=== PATIENT | female | born 1990 | race Caucasian/White ===

== ENCOUNTER 2023-11-14 15:30 | Outpatient (CLI) | payer MEDICAID, SELFPAY ==
[2023-11-14 21:02] LABS: Chlamydia DNA Amplified* NOT DETECTED (No Detected); GC DNA Amplified* NOT DETECTED (No Detected)
== END 2023-11-14 15:31 | disposition home or self-care (01) ==
PROVIDERS: Visit Provider Physician Assistant
DX: Z34.92 Encounter for supervision of normal pregnancy, unspecified, second trimester (principal); Z3A.20 20 weeks gestation of pregnancy
CPT/HCPCS: 86592; 86703; 86704; 86706; 86762; 86787; 86803; 86850; 86900; 86901; 87086; 87340; 87491; 87591

== ENCOUNTER 2023-11-20 11:58 | Outpatient (CLI) | payer MEDICAID, SELFPAY ==
--- NOTE | 2023-11-20 12:15 | CRLHL7_ITS ---
For Patients: As a result of the Century Cures Act, medical imaging exams and procedure reports are released immediately into your electronic medical record. You may view this report before your referring provider. If you have questions, please contact your health care provider. INDICATION: Evaluate anatomy. COMPARISON: none TECHNIQUE: Real time bishop scale imaging of the fetus was performed as well as color Doppler analysis of the umbilical vessels. FINDINGS: Sonographic imaging demonstrates a single living intrauterine gestation. Fetus demonstrates a regular cardiac rate of 155 beats per minute. Fetus has a vertex position. The placenta lies posteriorly without evidence of placenta previa. Edge of the placenta located 4.9 cm from the internal cervical os. Amniotic fluid volume appears normal. Single deepest vertical pocket: 3.4 cm. With transvaginal measurement, the cervix measures 2.6 cm with fundal pressure. A small amount of fluid is present within the endocervical canal. The composite ultrasound gestational age is calculated at 21 weeks 2 days with an estimated sonographic due date of 03/30/2024. The estimated weight is 418 grams which lies at the 72nd %. The following biometric measurements were obtained: Biparietal diameter: 5.0 cm/21 weeks 0 days 57th% Head circumference: 18.7 cm/21 weeks 0 days 47th% Abdominal circumference: 16.9 cm/21 weeks 6 days 76th% Femur length: 3.5 cm/20 weeks 6 days 41st% The HC/AC ratio measures: 1.11 range (1.06-1.24) On anatomic survey, there is a normal appearance of the cerebral ventricles, cavum septi pellucidi, cisterna magna and cerebellum. The nose, lips, and facial profile appear normal. The cervical, thoracic and lumbar spine are well visualized and appear normal. There is a normal four-chamber heart view and the left and right ventricular outflow tracts appear normal. The diaphragm and stomach appear normal. The kidneys and bladder also appear normal. There is a normal three-vessel cord and cord insertion site. The four extremities appear normal. IMPRESSION: Concordance of clinical and sonographic dating. No intrinsic abnormalities noted on anatomic survey. Transvaginal measurement of the cervix performed. With fundal pressure the cervix measures 2.6 cm. A small amount of fluid is present within the endocervical canal. Dictated by García Echols MD @ 11/20/2023 4:10:37 PM (Electronically Signed)
== END 2023-11-20 11:59 | disposition home or self-care (01) ==
PROVIDERS: Visit Provider Physician Assistant
DX: Z34.92 Encounter for supervision of normal pregnancy, unspecified, second trimester (principal); Z3A.21 21 weeks gestation of pregnancy
CPT/HCPCS: 76805; 76817

== ENCOUNTER 2023-12-06 07:29 | Outpatient (CLI) | payer MEDICAID, SELFPAY ==
--- OUTSIDE RECORDS SUMMARY | 2023-12-06 15:05 | XMS_ITS | Encounter Summary ---
Author Organization [facility] Address [address] [place] [address] Care Team Providers Care Ice Sculptor Name Role Phone Jennifer Dubose P.A.-C., P.A. Primary Care Provid er Reason for Visit * Reason Comments Pre-placement [facility] * Appointment Request (Routine) - Closed Specialty Diagnoses / Procedures Referred By Richard damon Referred To Contact Occupational Medicine Referral ID Status Reason Start Date Expiration Date Visits Re quested Visits Authorized [id number] Closed 10/17/2023 10/16/2024 1 1 Encounter Details Date Type Department Care Team (Latest Contact Info) Description 10/18/2023 9:00 AM CDT Comprehensive Visit Department of Occupational Medicine in [place], [place] [address] [phone] Cheryl Mclean P.A.-C., P.A. [address] [phone] Preplacement Exam (Primary Dx) Social History Tobacco Use Types Packs/Day Years Used Date Smoking Tobacco: Former Cigarettes 0.5 10 1 04/17/2010 - 02/15/2021 Smokeless Tobacco: Never Tobacco Cessation:Counseling Given: Not Answered Alcohol Use Standard Drinks/Week Comments Yes 1 (1 standard drink = 0.6 oz pur e alcohol) Humiliation, Afraid, Rape, and Kick questionnair e Answer Date Recorded Within the last year, have y ou been afraid of your partner or ex-partner? No 08/25/2021 Within the last year, have y ou been humiliated or emotionally abused in other ways by your partner or ex-partner? No Within the last year, have y ou been kicked, hit, slapped, or otherwise physically hurt by your partner or ex-partner? No 08/25/2021 Within the last year, have y ou been raped or forced to have any kind of sexual activity by your partner or ex-partner? No 08/25/2021 Social Connection and Isolat ion Panel [NHANES] Answer Date Recorded In a typical week, how many times do you talk on the phone with family, friends, or neighbors? More than three times a week 08/25/2021 How often do you get togethe r with friends or relatives? Twice a week 08/25/2021 How often do you attend chur or mormon services? Never 08/25/2021 Do you belong to any clubs o r organizations such as adventist groups, unions, fraternal or athletic groups, or school groups? No 08/25/2021 How often do you attend meet ings of the clubs or organizations you belong to? Patient declined 08/25/2021 Are you , , di vorced, , never , or living with a partner? 08/25/2021 AUDIT-C Answer Date Recorded Q1: How often do you have a drink containing alc ohol? Monthly or less 08/25/2021 Q2: How many drinks containi ng alcohol do you have on a typical day when you are drinking? 3 or 4 08/25/2021 Q3: How often do you have si x or more drinks on one occasion? Less than monthly 08/25/2021 Overall Financial Resource Strain (CARDIA) Answe r Date Recorded How hard is it for you to pa y for the very basics like food, housing, medical care, and heating? Somewhat hard 08/25/2021 PHQ-2 Answer Date Recorded PHQ-2 Score 0 08/25/2021 [facility] - Occupational Stress Questionnaire Answer Date Recorded Do you feel stress - tense, restless, nervous, or anxious, or unable to sleep at night because your mind is troubled all the time - these days? Not at all 08/25/2021 Exercise Vital Sign Answer Date Recorde d On average, how many days pe r week do you engage in moderate to strenuous exercise (like a brisk walk)? 3 days 08/25/2021 On average, how many minutes do you engage in exercise at this level? 30 min 08/25/2021 Hunger Vital Sign Answer Date Recorded Within the past 12 months, y ou worried that your food would run out before you got the money to buy more. Never true 08/26/19 Within the past 12 months, t he food you bought just didn't last and you didn't have money to get more. Never true 08/25/2021 PRAPARE - Transportation Answer Date Re corded In the past 12 months, has l ack of transportation kept you from medical appointments or from getting medications? No 08/15 In the past 12 months, has l ack of transportation kept you from meetings, work, or from getting things needed for daily living? No 08/25/2021 Housing Stability Vital Sign Answer Kofi e Recorded In the last 12 months, was t here a time when you were not able to pay the mortgage or rent on time? No 08/25/2021 In the last 12 months, how many places have you lived? 2 08/25/2021 In the last 12 months, was t here a time when you did not have a steady place to sleep or slept in a fpc (including now)? No 08/25/2021 Nutrition Answer Date Recorded On average, how many serving s of fruits and vegetables do you eat per day (serving size is equal to 1 cup or approximately the size of a tennis ball)? 2-3 08/25/2021 Dental Answer Date Recorded Dental: Regular Dentist No 08/26/19 Employment Answer Date Recorded Employment status Employed and actively working without restrictions 08/25/2021 Education Answer Date Recorded What is the highest level of school you have completed or the highest degree you have received? 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 Sexual Orientation Straight 05/26/2019 10 :17 PM BRAKE DRUM LATHE OPERATOR documented as of this encounter Last Filed Vital Signs Vital Sign Reading Time Taken Comments Blood Pressure 108/74 10/18/2023 9:14 AM CDT Pulse 81 10/18/2023 9:14 AM CDT Temperature 36.2 ??C (97.2 ??F) 10/18/2023 9:14 AM CD T Respiratory Rate 16 10/18/2023 9:14 AM CDT Oxygen Saturation - - Inhaled Oxygen Concentration - - Weight 99.2 kg (218 lb 11.1 oz) 10/18/2023 9:14 AM CDT Height 173.3 cm (5' 8.23) 10/18/2023 9:14 AM CD T Body Mass Index 33.03 10/18/2023 9:14 AM CDT documented in this encounter Progress Notes * Cheryl Mclean P.A.-C., P.A. 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 female presenting today for a pre-placement physical. She has established with a local primary care provider, Jennifer Dubose PA-C. The patient does not have any current complaints or concerns. She is currently about 17 weeks . She has not yet established with OB but intends to soon. Patient completed Pre-Employment History Evaluation Questionnaire, this is reviewed in detail. The following portions of the patient's medical history were reviewed and updated as appropriate: allergies, current medications, medical history, social history, surgical history, and problem list Review of Systems ROS negative, as documented on the Pre-Employment History Evaluation Questionnaire completed on 10/18/23 Vitals: 10/18/23 0914 BP: 108/74 Pulse: 81 Resp: 16 Temp: 36.2 ??C GENERAL: Alert, relaxed female, under no acute distress. NEUROLOGICAL: Thought processes coherent, oriented to person, place and time. SKIN: Warm, moist, no lesions or ecchymosis. HEENT: Normocephalic, atraumatic. PERRLA. EOMs intact. HEART: S1, S2. Regular rate and rhythm. No murmurs, gallops or rubs. LUNGS: Clear to auscultation bilaterally. ABDOMEN: Soft, non tender to palpation. No hepatosplenomegaly. EXTREMITIES: Warm and well perfused, no joint pain or deformities. ASSESSMENT / PLAN Encounter Diagnosis Name Primary? Preplacement Exam Yes The job description, Pre-Employment Questionnaire, and diagnostic testing have been reviewed. May proceed with employment without restrictions. Appropriate forms filled out for the employer, see scanned documents for details. Tobacco cessation counseling: Not applicable, patient is not currently using tobacco. Thank you for letting me be involved in your care. documented in this encounter Plan of Treatment Not on file documented as of this encounter Visit Diagnoses Diagnosis Preplacement Exam- Primary documented in this encounter Care Teams Ice Sculptor Relationship Specialty Start Date End Date Jennifer Dubose P.A.-C., P.A. [address] [phone] PCP - General 02/15/21 documented as of this encounter
--- OUTSIDE RECORDS SUMMARY | 2023-12-06 15:05 | XMS_ITS | Clinical Summary ---
Author Organization [facility] Address [address] [place] [address] Care Team Providers Care Overnight Babysitter Name Role Phone Jennifer Dubose P.A.-C., P.A. Primary Care Provid er Source Comments Patient records contain information from all sites at [facility]. For routine questions regarding patient records, call [phone] during business hours, M-F 8:00 AM - 5:00 PM Central Time. Record requests for emergency care only can be directed to [phone] at any time.[facility] Allergies No known active allergies Medications No known medications Active Problems Problem Noted Date Diagnosed Date Hidradenitis Suppurativa 12/05/2012 Dependence Nicotine 12/06/2010 Polycystic Ovary Syndrome 11/04/2005 Hirsutism 10/21/2005 Encounters Date Type Department Care Team Description 10/18/2023 9:00 AM CDT Comprehensive Visit Department of Occupational Medicine in [place], [place] [address] [place] [phone] Cheryl Mclean P.A.-C., P.A. Preplacement Exam (Primary Dx) from Last 3 Months Immunizations Name Administration Dates Next Due 4vHPV (discontinued) 01/29/2009,11/06/2008,09/05 DTP 12/05/1995 DTaP (Infanrix, Tripedia) 08/27/1992,1991, 1991,1991 DTaP, Unspecified 12/05/1995, 3,1991,1991, HepB Adult 04/12/2004,11/11/2003,10/09/2003 HepB, Unspecified 04/12/2004,11/11/2003,10/09/19 04 Hib (PRP-T) (ACTHIB, HIBERIX) 05/26/1992, 992,1991,1991 IPV 08/27/1992,1991,1991 ,1991 MMR 11/06/2003,05/26/1992 OPV 12/05/1995 PPSV23 05/23/2016 Td (Adult), adsorbed 11/11/2003 Td, (Adult) Unspecified 11/11/2003 Tdap 05/23/2016 Family History Medical History Relation Name Comments ADD / ADHD Brother No Known Problems Father Diabetes Maternal Grandfather Heart attack Maternal Grandfather cause o f Alzheimers disease Maternal Grandmother Diabetes Maternal Grandmother Clotting disorder Mother Ila Coronary artery disease Mother Ila Sten ts Depression Mother Ila Diabetes Mother Ila Hyperlipidemia Mother Ila Hypertension Mother Ila Kidney disease Mother Ila Sleep apnea Mother Ila Stroke Mother Ila Thyroid disease Mother Ila Diabetes Paternal Grandfather Relation Name Status Comments Brother Father Maternal Grandfather Maternal Grandmother Mother Ila Alive Paternal Grandfather Social History Tobacco Use Types Packs/Day Years [...] How often do you attend chur or latter-day services? Never 08/25/2021 Do you belong to any clubs o r organizations such as taoism groups, unions, fraternal or athletic groups, or [...] Answer Date Recorded PHQ-2 Score 0 08/25/2021 [facility] - Occupational Stress [...] place to sleep or slept in a snf (including now)? 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 PROTECTION TECHNICIAN Sexual Orientation Straight 05/26/2019 10 :17 PM SENIOR RADIATION PROTECTION TECHNICIAN Last Filed Vital Signs Vital Sign Reading [...] Mass Index 33.03 10/18/2023 9:14 AM CDT Plan of Treatment Health Maintenance Due Date Last Done Comments HIV Screening 1991 Hepatitis C Screening 1991 Cervical Cancer Screening 05/28/20222019, 05/23/2016, 12/19/2012 COVID-19 Vaccine (2022-24 season) 2022 Depression Screening (Annual PHQ-2) 04/17/2023 Influenza Vaccine (#1) 2024 DTaP,Tdap,and Td Vaccines (7 - Td or Tdap) 05/23/2026 05/23/2016, 11/11/2003, 11/11/2003, Additional history exists Hepatitis B Vaccines Completed 04/12/2004, 04/12/2004, 11/11/2003, Additional history exists HPV Vaccines Completed 01/29/2009, 10/16, 09/05/2008 Pneumococcal vaccine (0-64 years) Aged Out 05/23/2016 No longer eligible based on patient's age to complete this topic Procedures Procedure Name Priority Date/Time Associated Diagnosis Comments THINPREP SCREEN HPV REFLEX Routine 05/28/2019 9:52 AM SENIOR RADIATION PROTECTION TECHNICIAN General Medical Examination Adult from Last 3 Months or Most Recently Relevant to Health Maintenance Results * ThinPrep Screen HPV Reflex (05/28/2019 9:52 AM SENIOR RADIATION PROTECTION TECHNICIAN) 06/03/2019 12:08 PM SENIOR RADIATION PROTECTION TECHNICIAN [facility] Report electronically signed by JOEL Live(ASCP) I verify that I have examined all relevant slides/materials for the specimen(s) and rendered or confirmed the diagnosis. 06/03/2019 12:08 PM SENIOR RADIATION PROTECTION TECHNICIAN [facility] Gross Description Received specimen in a ThinPrep vial. 06/03/2019 12:08 PM SENIOR RADIATION PROTECTION TECHNICIAN [facility] Pap Test Source Cervical/Endocervi kate 06/03/2019 12:08 PM SENIOR RADIATION PROTECTION TECHNICIAN [facility] Clinical History na 06/03/19 20 12:08 PM SENIOR RADIATION PROTECTION TECHNICIAN [facility] Menstrual Status(LMP, PM, ) na 06/03/2019 12:08 PM SENIOR RADIATION PROTECTION TECHNICIAN [facility] Hormone Therapy/Contracep tives na 06/03/2019 12:08 PM SENIOR RADIATION PROTECTION TECHNICIAN [facility] Interpretation Cervical/Endocervi kate ??(ThinPrep): Satisfactory for Evaluation Negative for Intraepithelial Lesion or Malignancy 06/03/2019 12:08 PM SENIOR RADIATION PROTECTION TECHNICIAN [facility] Varies (Cervix/Endocerv ix) 05/28/2019 9:52 AM SENIOR RADIATION PROTECTION TECHNICIAN 05/28/2019 2:13 PM SENIOR RADIATION PROTECTION TECHNICIAN Pham Alvarez APRN, C.N.P., M.S.N. LAB PAP PATHDX ORDERABLES [facility] [address] [place] [address], [facility] [address] [place] [address] from Last 3 Months or Most Recently Relevant to Health Maintenance Care Teams Overnight Babysitter Relationship Specialty Start Date End Date Jennifer Dubose P.A.-C., P.A. [address], [place] [phone] PCP - General 02/15/21
--- OUTSIDE RECORDS SUMMARY | 2023-12-06 15:05 | XMS_ITS | Referral Summary ---
Author Organization [facility] Address [address] [place] [address] Care Team Providers Care Automobile Mechanic Name Role Phone Jennifer Dubose P.A.-C., P.A. Primary Care Provid er Source Comments Patient records contain information from all sites at [facility]. For routine questions regarding patient records, call [phone] during business hours, M-F 8:00 AM - 5:00 PM Central Time. Record requests for emergency care only can be directed to [phone] at any time.[facility] Encounters Date Type Department Care Team Description 10/18/2023 9:00 AM CDT Comprehensive Visit Department of Occupational Medicine in [place], [place] [address] [place] [phone] Cheryl Mclean P.A.-C., P.A. Preplacement Exam (Primary Dx) from Last 3 Months Allergies No known active allergies Medications No known medications Active Problems Problem Noted Date Diagnosed Date Hidradenitis Suppurativa 12/05/2012 Dependence Nicotine 12/06/2010 Polycystic Ovary Syndrome 11/04/2005 Hirsutism 10/21/2005 Immunizations Name Administration Dates Next Due 4vHPV (discontinued) 01/29/2009,11/06/2008,09/05 DTP 12/05/1995 DTaP (Infanrix, Tripedia) 08/27/1992,1991, 1991,1991 DTaP, Unspecified 12/05/1995, 3,1991,1991, HepB Adult 04/12/2004,11/11/2003,10/09/2003 HepB, Unspecified 04/12/2004,11/11/2003,10/09/19 04 Hib (PRP-T) (ACTHIB, HIBERIX) 05/26/1992, 992,1991,1991 IPV 08/27/1992,1991,1991 ,1991 MMR 11/06/2003,05/26/1992 OPV 12/05/1995 PPSV23 05/23/2016 Td (Adult), adsorbed 11/11/2003 Td, (Adult) Unspecified 11/11/2003 Tdap 05/23/2016 Social History Tobacco Use Types Packs/Day Years [...] week 08/25/2021 How often do you attend [facility] or scientology services? Never 08/25/2021 Do you belong to any clubs o r organizations such as jehovah's witness groups, unions, fraternal or athletic groups, or [...] Answer Date Recorded PHQ-2 Score 0 08/25/2021 [facility] - Occupational Stress Questionnaire Answer Date Recorded [...] money to buy more. Never true 08/26/19 22 Within the past 12 months, t he [...] place to sleep or slept in a jail (including now)? No 08/25/2021 Nutrition Answer Date [...] file Gender Identity Female 05/26/2019 10:17 PM INSTITUTIONAL CUSTODIAN Sexual Orientation Straight 05/26/2019 10 :17 PM INSTITUTIONAL CUSTODIAN Last Filed Vital Signs Vital Sign Reading [...] 10/18/2023 9:14 AM CDT Plan of Treatment Not on file Procedures Procedure Name Priority Date/Time Associated Diagnosis Comments THINPREP SCREEN HPV REFLEX Routine 05/28/2019 9:52 AM INSTITUTIONAL CUSTODIAN General Medical Examination Adult from Last 3 Months or Most Recently Relevant to Health Maintenance Results * ThinPrep Screen HPV Reflex (05/28/2019 9:52 AM INSTITUTIONAL CUSTODIAN) 06/03/2019 12:08 PM INSTITUTIONAL CUSTODIAN [facility] Report electronically signed by JOEL Live(ASCP) I verify that I have examined all relevant slides/materials for the specimen(s) and rendered or confirmed the diagnosis. 06/03/2019 12:08 PM INSTITUTIONAL CUSTODIAN [facility] Gross Description Received specimen in a ThinPrep vial. 06/03/2019 12:08 PM INSTITUTIONAL CUSTODIAN [facility] Pap Test Source Cervical/Endocervi kate 06/03/2019 12:08 PM INSTITUTIONAL CUSTODIAN [facility] Clinical History na 06/03/19 20 12:08 PM INSTITUTIONAL CUSTODIAN [facility] Menstrual Status(LMP, PM, ) na 06/03/2019 12:08 PM INSTITUTIONAL CUSTODIAN [facility] Hormone Therapy/Contracep tives na 06/03/2019 12:08 PM INSTITUTIONAL CUSTODIAN [facility] Interpretation Cervical/Endocervi kate ??(ThinPrep): Satisfactory for Evaluation Negative for Intraepithelial Lesion or Malignancy 06/03/2019 12:08 PM INSTITUTIONAL CUSTODIAN [facility] Varies (Cervix/Endocerv ix) 05/28/2019 9:52 AM INSTITUTIONAL CUSTODIAN 05/28/2019 2:13 PM INSTITUTIONAL CUSTODIAN Jayashree Erwin APRNNNikhil, M.S.N. LAB PAP PATHDX ORDERABLES [facility] [address] [place] [address], [facility] HK[facility] [address] [place] [address] from Last 3 Months or Most Recently Relevant to Health Maintenance Care Teams Automobile Mechanic Relationship Specialty Start Date End Date Jennifer Dubose P.A.-C., P.A. [address], [place] [phone] PCP - General 02/15/21
--- OUTSIDE RECORDS SUMMARY | 2023-12-06 15:05 | XMS_ITS ---
Author Organization [facility] Address [address] [place] [address] Care Team Providers Care Licensed Clinician Name Role Phone Unavailable Unavailable Unavailable Surgery Details Not on file Complications Check Surgery Details section. Procedure Estimated Blood Loss Check Surgery Details section. Procedure Findings Check Surgery Details section. Procedure Specimens Taken Check Surgery Details section.
== END 2023-12-06 07:30 | disposition home or self-care (01) ==
LOC: NFLDREF 15:03
PROVIDERS: Visit Provider Advanced Practice Midwife
DX: O99.810 Abnormal glucose complicating pregnancy (principal)
CPT/HCPCS: 82951; 82952

== ENCOUNTER 2024-01-09 18:00 | Outpatient (CLI) | payer MEDICAID, SELFPAY ==
--- OUTSIDE RECORDS SUMMARY | 2024-01-12 12:00 | XMS_ITS | Referral Summary ---
Author Organization [facility] Address [address] [place] [address] Care Team Providers Care Technical Analyst Name Role Phone Jennifer Dubose P.A.-C., P.A. Primary Care Provid er Source Comments Patient records contain information from all sites at [facility]. For routine questions regarding patient records, call [phone] during business hours, M-F 8:00 AM - 5:00 PM Central Time. Record requests for emergency care only can be directed to [phone] at any time.[facility] Encounters Date Type Department Care Team Description 10/18/2023 9:00 AM CDT Comprehensive Visit Department of Occupational Medicine in [place], [place] [address] [place] [phone] Cheryl Mclean P.A.-C., P.A., M.S. Preplacement Exam (Primary Dx) from Last 3 [...] week 08/25/2021 How often do you attend [facility] or [facility] services? Never 08/25/2021 Do you belong to any clubs o r organizations such as islam groups, unions, fraternal or athletic groups, or [...] Answer Date Recorded PHQ-2 Score 0 08/25/2021 [facility] - Occupational [...] file Gender Identity Female 05/26/2019 10:17 PM SHINGLE CATCHER Sexual Orientation Straight 05/26/2019 10 :17 PM SHINGLE CATCHER Last Filed Vital Signs Vital Sign Reading [...] SCREEN HPV REFLEX Routine 05/28/2019 9:52 AM SHINGLE CATCHER General Medical Examination Adult from Last 3 Months or Most Recently Relevant to Health Maintenance Results * ThinPrep Screen HPV Reflex (05/28/2019 9:52 AM SHINGLE CATCHER) 06/03/2019 12:08 PM SHINGLE CATCHER [facility] Report electronically signed by JOEL Live(ASCP) I verify that I have examined all relevant slides/materials for the specimen(s) and rendered or confirmed the diagnosis. 06/03/2019 12:08 PM SHINGLE CATCHER [facility] Gross Description Received specimen in a ThinPrep vial. 06/03/2019 12:08 PM SHINGLE CATCHER [facility] Pap Test Source Cervical/Endocervi kate 06/03/2019 12:08 PM SHINGLE CATCHER [facility] Clinical History na 06/03/19 20 12:08 PM SHINGLE CATCHER [facility] Menstrual Status(LMP, PM, ) na 06/03/2019 12:08 PM SHINGLE CATCHER [facility] Hormone Therapy/Contracep tives na 06/03/2019 12:08 PM SHINGLE CATCHER [facility] Interpretation Cervical/Endocervi kate ??(ThinPrep): Satisfactory for Evaluation Negative for Intraepithelial Lesion or Malignancy 06/03/2019 12:08 PM SHINGLE CATCHER [facility] Varies (Cervix/Endocerv ix) 05/28/2019 9:52 AM SHINGLE CATCHER 05/28/2019 2:13 PM SHINGLE CATCHER Jayashree Erwin APRNNNikhil, M.S.N. LAB PAP PATHDX ORDERABLES [facility] [address] [place] [address], [facility] Cytology [address] [place] [address] from Last 3 Months or Most Recently Relevant to Health Maintenance Care Teams Technical Analyst Relationship Specialty Start Date End Date Jennifer Dubose P.A.-C., P.A. [address] [facility] [phone] PCP - General 02/15/21
--- OUTSIDE RECORDS SUMMARY | 2024-01-12 12:00 | XMS_ITS | Clinical Summary ---
Author Organization [facility] Address [address] [place] [address] Care Team Providers Care Reagent Tender Helper Name Role Phone Jennifer Dubose P.A.-C., P.A. Primary Care Provid er Source Comments Patient records contain information from all sites at [facility]. For routine questions regarding patient records, call [phone] during business hours, M-F 8:00 AM - 5:00 PM Central Time. Record requests for emergency care only can be directed to [phone] at any time.[facility] Allergies No known active allergies Medications No known medications Active Problems Problem Noted Date Diagnosed Date Hidradenitis Suppurativa 12/05/2012 Dependence Nicotine 12/06/2010 Polycystic Ovary Syndrome 11/04/2005 Hirsutism 10/21/2005 Encounters Date Type Department Care Team Description 10/18/2023 9:00 AM CDT Comprehensive Visit Department of Occupational Medicine in [place], [place] [address] [place] [phone] Cheryl Mclean P.A.-C., P.A., M.S. Preplacement Exam [...] How often do you attend chur or sabianism services? Never 08/25/2021 Do you belong to any clubs o r organizations such as presybeterian groups, unions, fraternal or athletic groups, or [...] Answer Date Recorded PHQ-2 Score 0 08/25/2021 [facility] of Occupat ional Health - Occupational [...] place to sleep or slept in a senior care (including now)? No 08/25/2021 Nutrition Answer Date [...] file Gender Identity Female 05/26/2019 10:17 PM ASSISTANT TO THE VICE PRESIDENT Sexual Orientation Straight 05/26/2019 10 :17 PM ASSISTANT TO THE VICE PRESIDENT Last Filed Vital Signs Vital Sign Reading [...] 1991 Cervical Cancer Screening 05/28/20222019, 05/23/2016, 12/19/2012 Depression Screening (Annual PHQ-2) 04/17/2023 COVID-19 Vaccine ( season) 2023 Influenza Vaccine (#1) 2024 DTaP,Tdap,and Td Vaccines [...] SCREEN HPV REFLEX Routine 05/28/2019 9:52 AM ASSISTANT TO THE VICE PRESIDENT General Medical Examination Adult from Last 3 Months or Most Recently Relevant to Health Maintenance Results * ThinPrep Screen HPV Reflex (05/28/2019 9:52 AM ASSISTANT TO THE VICE PRESIDENT) 06/03/2019 12:08 PM ASSISTANT TO THE VICE PRESIDENT [facility] Report electronically signed by JOEL Live(ASCP) I verify that I have examined all relevant slides/materials for the specimen(s) and rendered or confirmed the diagnosis. 06/03/2019 12:08 PM ASSISTANT TO THE VICE PRESIDENT [facility] Gross Description Received specimen in a ThinPrep vial. 06/03/2019 12:08 PM ASSISTANT TO THE VICE PRESIDENT [facility] Pap Test Source Cervical/Endocervi kate 06/03/2019 12:08 PM ASSISTANT TO THE VICE PRESIDENT [facility] Clinical History na 06/03/19 20 12:08 PM ASSISTANT TO THE VICE PRESIDENT [facility] Menstrual Status(LMP, PM, ) na 06/03/2019 12:08 PM ASSISTANT TO THE VICE PRESIDENT [facility] Hormone Therapy/Contracep tives na 06/03/2019 12:08 PM ASSISTANT TO THE VICE PRESIDENT [facility] Interpretation Cervical/Endocervi kate ??(ThinPrep): Satisfactory for Evaluation Negative for Intraepithelial Lesion or Malignancy 06/03/2019 12:08 PM ASSISTANT TO THE VICE PRESIDENT [facility] Varies (Cervix/Endocerv ix) 05/28/2019 9:52 AM ASSISTANT TO THE VICE PRESIDENT 05/28/2019 2:13 PM ASSISTANT TO THE VICE PRESIDENT Pham Alvarez APRN, C.N.P., M.S.N. LAB PAP PATHDX ORDERABLES [facility] CYTOLOGY [address] [place] [address], [facility] Cytology [address] [place] [address] from Last 3 Months or Most Recently Relevant to Health Maintenance Care Teams Reagent Tender Helper Relationship Specialty Start Date End Date Jennifer Dubose P.A.-C., P.A. [address] [place] [phone] PCP - General 02/15/21
--- OUTSIDE RECORDS SUMMARY | 2024-01-12 12:00 | XMS_ITS ---
Author Organization [facility] Address [address] [place] [address] Care Team Providers Care Foil Operator Name Role Phone Unavailable Unavailable Unavailable Surgery Details Not on file Complications Check Surgery Details section. Procedure Estimated Blood Loss Check Surgery Details section. Procedure Findings Check Surgery Details section. Procedure Specimens Taken Check Surgery Details section.
--- OUTSIDE RECORDS SUMMARY | 2024-01-12 12:00 | XMS_ITS | Encounter Summary ---
Author Organization [facility] [place] [facility] Address [address] [place] [address] Care Team Providers Care Biochemical Engineer Name Role Phone Jennifer Dubose P.A.-C., P.A. Primary Care Provid er Reason for Visit * Reason Comments Pre-placement [facility] s * Appointment Request (Routine) - Closed Specialty Diagnoses / Procedures Referred By Richard damon Referred To Contact Occupational Medicine Referral ID Status Reason Start Date Expiration Date Visits Re quested Visits Authorized [id number] Closed 10/17/2023 10/16/2024 1 1 Encounter Details Date Type Department Care Team (Latest Contact Info) Description 10/18/2023 9:00 AM CDT Comprehensive Visit Department of Occupational Medicine in [place], [place] [address] [phone] Cheryl Mclean P.A.-C., P.A., M.S. [address] [phone] Preplacement Exam (Primary Dx) Social [...] How often do you attend chur or hindu services? Never 08/25/2021 Do you belong to any clubs o r organizations such as mandaen groups, unions, fraternal or athletic groups, or [...] Answer Date Recorded PHQ-2 Score 0 08/25/2021 [facility] of Occupat ional Health - Occupational [...] place to sleep or slept in a half-way (including now)? 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 [address] [place] [phone] PCP - General 02/15/21 documented as of this encounter
== END 2024-01-09 18:01 | disposition home or self-care (01) ==
LOC: NFLDREF 01-12 11:57
PROVIDERS: Visit Provider Physician Assistant
DX: Z34.03 Encounter for supervision of normal first pregnancy, third trimester (principal)
CPT/HCPCS: 86592

== ENCOUNTER 2024-02-08 14:01 | Outpatient (CLI) | payer OTHER, SELFPAY ==
--- OUTSIDE RECORDS SUMMARY | 2024-02-08 14:03 | XMS_ITS | Clinical Summary ---
Author Organization [facility] Address [address] [place] [address] Care Team Providers Care Cattle Care Worker Name Role Phone Jennifer Dubose P.A.-C., P.A. Primary Care Provid er Source Comments Patient records contain information from all sites at [facility]. For routine questions regarding patient records, call [phone] during business hours, M-F 8:00 AM - 5:00 PM Central Time. Record requests for emergency care only can be directed to [phone] at any time.[facility] Allergies No known active allergies Medications No known medications Active Problems Problem Noted Date Diagnosed Date Hidradenitis Suppurativa 12/05/2012 Dependence Nicotine 12/06/2010 Polycystic Ovary Syndrome 11/04/2005 Hirsutism 10/21/2005 Encounters Date Type Department Care Team Description 01/16/2024 [facility] Dubose P.A.-C., P.A. from Last 3 Months Immunizations Name Administration [...] 08/25/2021 How often do you attend chur ch or mu-ism services? Never 08/25/2021 Do you belong to any clubs o r organizations such as caodaism groups, unions, fraternal or athletic groups, or [...] Answer Date Recorded PHQ-2 Score 0 08/25/2021 [facility] of Occupat ional Health - Occupational Stress [...] place to sleep or slept in a detention (including now)? No 08/25/2021 Nutrition Answer Date [...] have received? 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 on file Not o n file Last Filed Vital Signs Vital Sign Reading [...] Screening (Annual PHQ-2) 04/17/2023 COVID-19 Vaccine ( - season) 2023 Influenza Vaccine (#1) 2024 DTaP,Tdap,and [...] SCREEN HPV REFLEX Routine 05/28/2019 9:52 AM AUTOMATIC PUNCH PRESS OPERATOR General Medical Examination Adult from Last 3 Months or Most Recently Relevant to Health Maintenance Results * ThinPrep Screen HPV Reflex (05/28/2019 9:52 AM AUTOMATIC PUNCH PRESS OPERATOR) 06/03/2019 12:08 PM AUTOMATIC PUNCH PRESS OPERATOR [facility] Report electronically signed by JOEL Live(ASCP) I verify that I have examined all relevant slides/materials for the specimen(s) and rendered or confirmed the diagnosis. 06/03/2019 12:08 PM AUTOMATIC PUNCH PRESS OPERATOR [facility] Gross Description Received specimen in a ThinPrep vial. 06/03/2019 12:08 PM AUTOMATIC PUNCH PRESS OPERATOR [facility] Pap Test Source Cervical/Endocervi kate 06/03/2019 12:08 PM AUTOMATIC PUNCH PRESS OPERATOR [facility] Clinical History na 06/03/19 20 12:08 PM AUTOMATIC PUNCH PRESS OPERATOR [facility] Menstrual Status(LMP, PM, ) na 06/03/2019 12:08 PM AUTOMATIC PUNCH PRESS OPERATOR [facility] Hormone Therapy/Contracep tives na 06/03/2019 12:08 PM AUTOMATIC PUNCH PRESS OPERATOR [facility] Interpretation Cervical/Endocervi kate ??(ThinPrep): Satisfactory for Evaluation Negative for Intraepithelial Lesion or Malignancy 06/03/2019 12:08 PM AUTOMATIC PUNCH PRESS OPERATOR [facility] Varies (Cervix/Endocerv ix) 05/28/2019 9:52 AM AUTOMATIC PUNCH PRESS OPERATOR 05/28/2019 2:13 PM AUTOMATIC PUNCH PRESS OPERATOR us Pham Alvarez APRN C.N.P., M.S.N. LAB PAP PATHDX ORDERABLES Final Result [facility] CYTOLOGY [address] [place] [address], [facility] Cytology [address] [place] [address] from Last 3 Months or Most Recently Relevant to Health Maintenance Insurance [facility] [email or web address]] Care Teams Cattle Care Worker Relationship Specialty Start Date End Date Jennifer Dubose P.A.-C., P.A. [address] [place] [address] PCP - General 02/15/21
--- OUTSIDE RECORDS SUMMARY | 2024-02-08 14:03 | XMS_ITS | Encounter Summary ---
Author Organization [facility] Address [address] [place] [address] Care Team Providers Care Final Dressing Cutter Name Role Phone Jennifer Dubose P.A.-C., P.A. Primary Care Provid er Reason for Referral * Outpatient (Routine) - Authorized Specialty Diagnoses / Procedures Referred By Richard t Referred To Contact Family Medicine Jennifer Dubose P.A.-C., P.A. [address] [phone] Phone: tel: fax: [facility] Region Referral ID Status Reason Start Date Expiration Date V isits Requested Visits Authorized [id number] Authorized 01/16/2024 07/17/2025 1 1 Encounter Details Date Type Department Care Team (Late st Contact Info) Description 01/16/2024 [facility] P.[facility].-[facility]., P.A. [address] [phone] Social History Tobacco Use Types Packs/Day Years Used Date Smoking Tobacco: Former Cigarettes 0.5 10 1 04/17/2010 - 02/15/2021 Smokeless Tobacco: Never Alcohol Use Standard Drinks/Week Comments Yes 1 [...] week 08/25/2021 How often do you attend [facility] or adventism services? Never 08/25/2021 Do you belong to any clubs o r organizations such as cheondoism groups, unions, fraternal or athletic groups, or [...] Answer Date Recorded PHQ-2 Score 0 08/25/2021 [facility] [place] of Occupat ional Health - Occupational Stress [...] place to sleep or slept in a long term (including now)? 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 [address] [phone] PCP - General 02/15/21 documented as of this encounter
--- OUTSIDE RECORDS SUMMARY | 2024-02-08 14:03 | XMS_ITS ---
Author Organization [facility] Address [address] [place] [address] Care Team Providers Care Sfdc Architect Name Role Phone Unavailable Unavailable Unavailable Surgery Details Not on file Complications Check Surgery Details section. Procedure Estimated Blood Loss Check Surgery Details section. Procedure Findings Check Surgery Details section. Procedure Specimens Taken Check Surgery Details section.
--- OUTSIDE RECORDS SUMMARY | 2024-02-08 14:03 | XMS_ITS | Referral Summary ---
Author Organization [facility] Address [address] [place] [address] Care Team Providers Care Configuration Management Consultant Name Role Phone Jennifer Dubose P.A.-C., P.A. Primary Care Provid er Source Comments Patient records contain information from all sites at [facility]. For routine questions regarding patient records, call [phone] during business hours, M-F 8:00 AM - 5:00 PM Central Time. Record requests for emergency care only can be directed to [phone] at any time.[facility] Encounters Date Type Department Care Team Description 01/16/2024 Orders Only [facility] MNT Jennifer Dubose P.Candace.Lissette., P.A. from Last 3 Months Allergies No known [...] often do you attend chur ch or spiritism services? Never 08/25/2021 Do you belong to [...] Answer Date Recorded PHQ-2 Score 0 08/25/2021 [facility] [place] of Occupat ional Health - Occupational Stress [...] place to sleep or slept in a halfway (including now)? No 08/25/2021 Nutrition Answer Date [...] on file Legal Sex Female 7:24 PM MEDICAL BILLER Gender Identity Female 05/26/2019 10:17 PM MEDICAL BILLER Sexual Orientation Straight 05/26/2019 10 :17 PM MEDICAL BILLER Occupation Industry Job Start Date Job End [...] SCREEN HPV REFLEX Routine 05/28/2019 9:52 AM MEDICAL BILLER General Medical Examination Adult from Last 3 Months or Most Recently Relevant to Health Maintenance Results * ThinPrep Screen HPV Reflex (05/28/2019 9:52 AM MEDICAL BILLER) 06/03/2019 12:08 PM MEDICAL BILLER [facility] Report electronically signed by JOEL Live(ASCP) I verify that I have examined all relevant slides/materials for the specimen(s) and rendered or confirmed the diagnosis. 06/03/2019 12:08 PM MEDICAL BILLER [facility] Gross Description Received specimen in a ThinPrep vial. 06/03/2019 12:08 PM MEDICAL BILLER [facility] Pap Test Source Cervical/Endocervi kate 06/03/2019 12:08 PM MEDICAL BILLER [facility] Clinical History na 06/03/19 20 12:08 PM MEDICAL BILLER [facility] Menstrual Status(LMP, PM, ) na 06/03/2019 12:08 PM MEDICAL BILLER [facility] Hormone Therapy/Contracep tives na 06/03/2019 12:08 PM MEDICAL BILLER [facility] Interpretation Cervical/Endocervi kate ??(ThinPrep): Satisfactory for Evaluation Negative for Intraepithelial Lesion or Malignancy 06/03/2019 12:08 PM MEDICAL BILLER [facility] Varies (Cervix/Endocerv ix) 05/28/2019 9:52 AM MEDICAL BILLER 05/28/2019 2:13 PM MEDICAL BILLER us Veronica Erwin APRN.N.PIsabell, M.S.N. LAB PAP PATHDX ORDERABLES Final Result [facility] CYTOLOGY [address] [place] [address], [facility] [place] [facility] Cytology [address] [place] [address] from Last 3 Months or Most Recently Relevant to Health Maintenance Insurance [facility] Care Teams Configuration Management Consultant Relationship Specialty Start Date End Date Jennifer Dubose P.A.-C., P.A. [address] [place] [phone] PCP - General 02/15/21
--- NOTE | 2024-02-08 14:04 | CRLHL7_ITS ---
For Patients: As a result of the Century Cures Act, medical imaging exams and procedure reports are released immediately into your electronic medical record. You may view this report before your referring provider. If you have questions, please contact your health care provider. INDICATION: GDMA 2 TECHNIQUE: Real time bishop scale imaging of the fetus was performed. COMPARISON: 11/20/2023 FINDINGS: Sonographic imaging demonstrates a single living intrauterine gestation. Fetus demonstrates a regular cardiac rate of 141 beats per minute. Fetus has a vertex position. The placenta lies right posterior. Amniotic fluid volume appears normal and there is a single deepest pocket of 7.1 cm. The estimated weight is 2432gm which lies at the 95th %. On the prior OB ultrasound dated 11/20/2023 the estimated weight was at the 72nd percentile. BPD 27th percentile. HC 38th percentile. AC greater than 97th percentile. FL 70th percentile. The fetus was active and demonstrated normal breathing movements. There was normal flexion and extension of the trunk and extremities. IMPRESSION: Normal biophysical profile score 8/8. Sonographic gestational age 33 weeks 4 days and sonographic due date of 03/24/2024. Sonographic age 9 days ahead of the clinical age. Estimated weight 95th percentile. Abdominal circumference greater than 97th percentile. Dictated by García Echols MD @ 02/09/2024 2:05:11 PM (Electronically Signed)
== END 2024-02-08 14:02 | disposition home or self-care (01) ==
LOC: US 14:01
PROVIDERS: Visit Provider Physician Assistant
DX: O24.419 Gestational diabetes mellitus in pregnancy, unspecified control (principal); Z3A.33 33 weeks gestation of pregnancy
CPT/HCPCS: 76816; 76819

== ENCOUNTER 2024-02-16 14:01 | Outpatient (CLI) | payer OTHER, SELFPAY ==
--- NOTE | 2024-02-16 14:00 | CRLHL7_ITS ---
For Patients: As a result of the Cures Act, medical imaging exams and procedure reports are released immediately into your electronic medical record. You may view this report before your referring provider. If you have questions, please contact your health care provider. INDICATION: Gestational diabetes mellitus. COMPARISON: 02/08/2024 TECHNIQUE: Grayscale pelvic ultrasound via a transabdominal approach. FINDINGS: number: 1 Position: Cephalic. Placental Position: Posterior. Amniotic fluid: DVP 8.2cm. MEGGAN is 16.9 cm. heart rate: 141bpm. BPP Score: Fluid: 2 Breathin Movement: 2 Tone: 2 Total: 8 Uterus: No significant uterine findings. Right ovary: Normal. Left ovary: Normal. IMPRESSION: Normal BPP score (8/8). Dictated by Herminio Lai MD @ 02/19/2024 8:59:35 AM (Electronically Signed)
--- OUTSIDE RECORDS SUMMARY | 2024-02-16 14:03 | XMS_ITS | Clinical Summary ---
Author Organization [facility] Address [address] [place] [address] Care Team Providers Care Sanitary Landfill Operator Name Role Phone Jennifer Dubose P.A.-C., P.A. Primary Care Provid er Source Comments Patient records contain information from all sites at [facility]. For routine questions regarding patient records, call [phone] during business hours, M-F 8:00 AM - 5:00 PM Central Time. Record requests for emergency care only can be directed to [phone] at any time.[facility] Allergies No known active allergies Medications No known medications Active Problems Problem Noted Date Diagnosed Date Hidradenitis Suppurativa 12/05/2012 Dependence Nicotine 12/06/2010 Polycystic Ovary Syndrome 11/04/2005 Hirsutism 10/21/2005 Encounters Date Type Department Care Team Description 01/16/2024 Orders Only [facility] Jennifer Dubose P.A.-C., P.A. from Last 3 [...] often do you attend chur ch or jew services? Never 08/25/2021 Do you belong to any clubs o r organizations such as voodoo groups, unions, fraternal or athletic groups, or [...] Answer Date Recorded PHQ-2 Score 0 08/25/2021 [facility] of Occupat ional [...] on file Legal Sex Female 7:24 PM TOOL AND DIE MANAGER Gender Identity Female 05/26/2019 10:17 PM TOOL AND DIE MANAGER Sexual Orientation Straight 05/26/2019 10 :17 PM TOOL AND DIE MANAGER Occupation Industry Job Start Date Job End [...] HIV Screening 1991 Hepatitis C Screening 1991 Cervical/Vaginal Cancer Screening 05/28/2022 05/28/2019, 05/23/2016, 12/19/2012 Depression Screening (Annual PHQ-2) 04/17/2023 COVID-19 Vaccine ( - season) 2023 Influenza Vaccine (#1) 2024 DTaP,Tdap,and Td Vaccines (7 - Td or Tdap) 05/23/2026 05/23/2016, 11/11/2003, 11/11/2003, Additional history exists IPV Vaccines Completed 12/05/1995, 08/15, 1991, Additional history exists Hepatitis B Vaccines Completed 04/12/2004, 04/12/2004, 11/11/2003, Additional history exists HPV Vaccines Completed 01/29/2009, 10/16, 09/05/2008 Pneumococcal vaccine (0-64 years) Aged Out 05/23/2016 No longer eligible based on patient's age to complete this topic Procedures Procedure Name Priority Date/Time Associated Diagnosis Comments THINPREP SCREEN HPV REFLEX Routine 05/28/2019 9:52 AM TOOL AND DIE MANAGER General Medical Examination Adult from Last 3 Months or Most Recently Relevant to Health Maintenance Results * ThinPrep Screen HPV Reflex (05/28/2019 9:52 AM TOOL AND DIE MANAGER) 06/03/2019 12:08 PM TOOL AND DIE MANAGER [facility] Report electronically signed by JOEL Live(ASCP) I verify that I have examined all relevant slides/materials for the specimen(s) and rendered or confirmed the diagnosis. 06/03/2019 12:08 PM TOOL AND DIE MANAGER [facility] Gross Description Received specimen in a ThinPrep vial. 06/03/2019 12:08 PM TOOL AND DIE MANAGER [facility] Pap Test Source Cervical/Endocervi kate 06/03/2019 12:08 PM TOOL AND DIE MANAGER [facility] Clinical History na 06/03/19 20 12:08 PM TOOL AND DIE MANAGER [facility] Menstrual Status(LMP, PM, ) na 06/03/2019 12:08 PM TOOL AND DIE MANAGER [facility] Hormone Therapy/Contracep tives na 06/03/2019 12:08 PM TOOL AND DIE MANAGER [facility] Interpretation Cervical/Endocervi kate ??(ThinPrep): Satisfactory for Evaluation Negative for Intraepithelial Lesion or Malignancy 06/03/2019 12:08 PM TOOL AND DIE MANAGER [facility] Varies (Cervix/Endocerv ix) 05/28/2019 9:52 AM TOOL AND DIE MANAGER 05/28/2019 2:13 PM TOOL AND DIE MANAGER us Veronica Erwin APRN.N.P., M.S.N. LAB PAP PATHDX ORDERABLES Final Result [facility] CYTOLOGY [address] [place] [address], [facility] Cytology [address] [place] [address] from Last 3 Months or Most Recently Relevant to Health Maintenance Insurance [facility] Care Teams Sanitary Landfill Operator Relationship Specialty Start Date End Date Jennifer Dubose P.A.-C., P.A. [address] [place] [phone] PCP - General 02/15/21
--- OUTSIDE RECORDS SUMMARY | 2024-02-16 14:03 | XMS_ITS ---
Author Organization [facility] Address [address] [place] [address] Care Team Providers Care Diversified Crops Farmer Name Role Phone Unavailable Unavailable Unavailable Surgery Details Not on file Complications Check Surgery Details section. Procedure Estimated Blood Loss Check Surgery Details section. Procedure Findings Check Surgery Details section. Procedure Specimens Taken Check Surgery Details section.
--- OUTSIDE RECORDS SUMMARY | 2024-02-16 14:03 | XMS_ITS | Referral Summary ---
Author Organization [facility] Address [address] [place] [address] Care Team Providers Care Retail Event And Sales Assistant Name Role Phone Jennifer Dubose P.A.-C., P.A. Primary Care Provid er Source Comments Patient records contain information from all sites at [facility]. For routine questions regarding patient records, call [phone] during business hours, M-F 8:00 AM - 5:00 PM Central Time. Record requests for emergency care only can be directed to [phone] at any time.[facility] Encounters Date Type Department Care Team Description 01/16/2024 Orders Only [facility] MNT Jennifer Dubose P.Candace.Lissette., P.A. from Last [...] often do you attend chur ch or yazidi services? Never 08/25/2021 Do you belong to any clubs o r organizations such as moravian groups, unions, fraternal or athletic groups, or [...] Answer Date Recorded PHQ-2 Score 0 08/25/2021 [facility] ional [facility] - [...] place to sleep or slept in a mcfp (including now)? No 08/25/2021 Nutrition Answer Date [...] on file Legal Sex Female 7:24 PM INSTALLER MOLDING AND TRIM Gender Identity Female 05/26/2019 10:17 PM INSTALLER MOLDING AND TRIM Sexual Orientation Straight 05/26/2019 10 :17 PM INSTALLER MOLDING AND TRIM Occupation Industry Job Start Date Job End [...] SCREEN HPV REFLEX Routine 05/28/2019 9:52 AM INSTALLER MOLDING AND TRIM General Medical Examination Adult from Last 3 Months or Most Recently Relevant to Health Maintenance Results * ThinPrep Screen HPV Reflex (05/28/2019 9:52 AM INSTALLER MOLDING AND TRIM) 06/03/2019 12:08 PM INSTALLER MOLDING AND TRIM [facility] Report electronically signed by JOEL Live(ASCP) I verify that I have examined all relevant slides/materials for the specimen(s) and rendered or confirmed the diagnosis. 06/03/2019 12:08 PM INSTALLER MOLDING AND TRIM [facility] Gross Description Received specimen in a ThinPrep vial. 06/03/2019 12:08 PM INSTALLER MOLDING AND TRIM [facility] Pap Test Source Cervical/Endocervi kate 06/03/2019 12:08 PM INSTALLER MOLDING AND TRIM [facility] Clinical History na 06/03/19 20 12:08 PM INSTALLER MOLDING AND TRIM [facility] Menstrual Status(LMP, PM, ) na 06/03/2019 12:08 PM INSTALLER MOLDING AND TRIM [facility] Hormone Therapy/Contracep tives na 06/03/2019 12:08 PM INSTALLER MOLDING AND TRIM [facility] Interpretation Cervical/Endocervi kate ??(ThinPrep): Satisfactory for Evaluation Negative for Intraepithelial Lesion or Malignancy 06/03/2019 12:08 PM INSTALLER MOLDING AND TRIM [facility] Varies (Cervix/Endocerv ix) 05/28/2019 9:52 AM INSTALLER MOLDING AND TRIM 05/28/2019 2:13 PM INSTALLER MOLDING AND TRIM us Veronica Erwin APRN.N.PIsabell, M.S.N. LAB PAP PATHDX ORDERABLES Final Result [facility] [address] [place] [address], [facility] Cytology [address] [place] [phone] from Last 3 Months or Most Recently Relevant to Health Maintenance Insurance [facility] Care Teams Retail Event And Sales Assistant Relationship Specialty Start Date End Date Jennifer Dubose P.A.-C., P.A. [address] [place] [phone] PCP - General 02/15/21
--- OUTSIDE RECORDS SUMMARY | 2024-02-16 14:03 | XMS_ITS | Encounter Summary ---
Author Organization [facility] Address [address] [place] [address] Care Team Providers Care Levelman Name Role Phone Jennifer Dubose P.A.-C., P.A. Primary Care Provid er Reason for Referral * Outpatient (Routine) - Authorized Specialty Diagnoses / Procedures Referred By Richard t Referred To Contact Family Medicine Jennifer Dubose P.A.-C., P.A. [address] [phone] Phone: tel: fax: [facility] Region Referral ID Status Reason Start Date Expiration Date V isits Requested Visits Authorized [id number] Authorized 01/16/2024 07/17/2025 1 1 Encounter Details Date Type Department Care Team (Late st Contact Info) Description 01/16/2024 [facility] Dub[facility] P.A.-C., P.A. [address] [phone] Social History Tobacco Use Types [...] week 08/25/2021 How often do you attend [facility] or latter day services? Never 08/25/2021 Do you belong to any clubs o r organizations such as orthodox groups, unions, fraternal or athletic groups, or [...] Answer Date Recorded PHQ-2 Score 0 08/25/2021 [facility] - Occupational Stress [...] place to sleep or slept in a usp (including now)? No 08/25/2021 Nutrition Answer Date [...] on file Legal Sex Female 7:24 PM ADMISSIONS DEAN Gender Identity Female 05/26/2019 10:17 PM ADMISSIONS DEAN Sexual Orientation Straight 05/26/2019 10 :17 PM ADMISSIONS DEAN Occupation Industry Job Start Date Job End [...] on filedocumented in this encounter Care Teams Levelman Relationship Specialty Start Date End Date Jennifer Dubose P.A.-C., P.A. [address] [phone] PCP - General 02/15/21 documented as of this encounter
== END 2024-02-16 14:02 | disposition home or self-care (01) ==
LOC: US 14:02
PROVIDERS: Visit Provider Physician Assistant
DX: O24.419 Gestational diabetes mellitus in pregnancy, unspecified control (principal); Z3A.33 33 weeks gestation of pregnancy
CPT/HCPCS: 76819

== ENCOUNTER 2024-02-18 21:53 | Outpatient (CLI) | payer OTHER, SELFPAY ==
[2024-02-18] VITALS (7 sets, daily range): BP systolic 125–145; BP diastolic 69–82; PULSE 94–108; O2SAT 100
--- OUTSIDE RECORDS SUMMARY | 2024-02-18 21:56 | XMS_ITS ---
Author Organization [facility] Address [address] [place] [address] Care Team Providers Care Telecommunications Specialist Name Role Phone Unavailable Unavailable Unavailable Surgery Details Not on file Complications Check Surgery Details section. Procedure Estimated Blood Loss Check Surgery Details section. Procedure Findings Check Surgery Details section. Procedure Specimens Taken Check Surgery Details section.
--- OUTSIDE RECORDS SUMMARY | 2024-02-18 21:56 | XMS_ITS | Clinical Summary ---
Author Organization [facility] Address [address] [place] [address] Care Team Providers Care Fisher Trawl Net Name Role Phone Jennifer Dubose P.A.-C., P.A. Primary Care Provid er Source Comments Patient records contain information from all sites at [facility]. For routine questions regarding patient records, call [phone] during business hours, M-F 8:00 AM - 5:00 PM Central Time. Record requests for emergency care only can be directed to [phone] at any time.[facility] Allergies No known active allergies Medications No known medications Active Problems Problem Noted Date Diagnosed Date Hidradenitis Suppurativa 12/05/2012 Dependence Nicotine 12/06/2010 Polycystic Ovary Syndrome 11/04/2005 Hirsutism 10/21/2005 Encounters Date Type Department Care Team Description 01/16/2024 [facility] Jennifer Dubose P.A.-C., P.A. from Last 3 [...] often do you attend chur ch or confucianist services? Never 08/25/2021 Do you belong to any clubs o r organizations such as methodist groups, unions, fraternal or athletic groups, or [...] Answer Date Recorded PHQ-2 Score 0 08/25/2021 [facility] Occupat ional Health - [...] place to sleep or slept in a correction (including now)? No 08/25/2021 Nutrition Answer Date [...] on file Legal Sex Female 7:24 PM BUILDING CUSTODIAL SUPERVISOR Gender Identity Female 05/26/2019 10:17 PM BUILDING CUSTODIAL SUPERVISOR Sexual Orientation Straight 05/26/2019 10 :17 PM BUILDING CUSTODIAL SUPERVISOR Occupation Industry Job Start Date Job End [...] SCREEN HPV REFLEX Routine 05/28/2019 9:52 AM BUILDING CUSTODIAL SUPERVISOR General Medical Examination Adult from Last 3 Months or Most Recently Relevant to Health Maintenance Results * ThinPrep Screen HPV Reflex (05/28/2019 9:52 AM BUILDING CUSTODIAL SUPERVISOR) 06/03/2019 12:08 PM BUILDING CUSTODIAL SUPERVISOR [facility] Report electronically signed by JOEL Live(ASCP) I verify that I have examined all relevant slides/materials for the specimen(s) and rendered or confirmed the diagnosis. 06/03/2019 12:08 PM BUILDING CUSTODIAL SUPERVISOR [facility] Gross Description Received specimen in a ThinPrep vial. 06/03/2019 12:08 PM BUILDING CUSTODIAL SUPERVISOR [facility] Pap Test Source Cervical/Endocervi kate 06/03/2019 12:08 PM BUILDING CUSTODIAL SUPERVISOR [facility] Clinical History na 06/03/19 20 12:08 PM BUILDING CUSTODIAL SUPERVISOR [facility] Menstrual Status(LMP, PM, ) na 06/03/2019 12:08 PM BUILDING CUSTODIAL SUPERVISOR [facility] Hormone Therapy/Contracep tives na 06/03/2019 12:08 PM BUILDING CUSTODIAL SUPERVISOR [facility] Interpretation Cervical/Endocervi kate ??(ThinPrep): Satisfactory for Evaluation Negative for Intraepithelial Lesion or Malignancy 06/03/2019 12:08 PM BUILDING CUSTODIAL SUPERVISOR [facility] Varies (Cervix/Endocerv ix) 05/28/2019 9:52 AM BUILDING CUSTODIAL SUPERVISOR 05/28/2019 2:13 PM BUILDING CUSTODIAL SUPERVISOR us Veronica Erwin APRN.N.P., M.S.N. LAB PAP PATHDX ORDERABLES Final Result [facility] CYTOLOGY [address] [place] [address], [facility] Cytology [address] [place] [address] from Last 3 Months or Most Recently Relevant to Health Maintenance Insurance [facility] Care Teams Fisher Trawl Net Relationship Specialty Start Date End Date Jennifer Dubose P.A.-C., P.A. [address] [place] [phone] PCP - General 02/15/21
--- OUTSIDE RECORDS SUMMARY | 2024-02-18 21:56 | XMS_ITS | Encounter Summary ---
Author Organization [facility] Address [address] [place] [address] Care Team Providers Care Certified Medical Biller Name Role Phone Jennifer Dubose P.A.-C., P.A. Primary Care Provid er Reason for Referral * Outpatient (Routine) - Authorized Specialty Diagnoses / Procedures Referred By Richard t Referred To Contact Family Medicine Jennifer Dubose P.A.-C., P.A. [address] [phone] Phone: tel: fax: [facility] Region Referral ID Status Reason Start Date Expiration Date V isits Requested Visits Authorized [id number] Authorized 01/16/2024 07/17/2025 1 1 Encounter Details Date Type Department Care Team (Late st Contact Info) Description 01/16/2024 [facility] Jenniefr Dubose P.A.-C., P.A. [address] [phone] Social History Tobacco Use Types [...] week 08/25/2021 How often do you attend [facility] or protestant services? Never 08/25/2021 Do you belong to any clubs o r organizations such as catholic groups, unions, fraternal or athletic groups, or [...] Answer Date Recorded PHQ-2 Score 0 08/25/2021 [facility] [place] [facility] Occupat ional Health - Occupational Stress [...] place to sleep or slept in a prison (including now)? No 08/25/2021 Nutrition Answer Date [...] on file Legal Sex Female 7:24 PM BURN OUT TENDER LACE Gender Identity Female 05/26/2019 10:17 PM BURN OUT TENDER LACE Sexual Orientation Straight 05/26/2019 10 :17 PM BURN OUT TENDER LACE Occupation Industry Job Start Date Job End [...] on filedocumented in this encounter Care Teams Certified Medical Biller Relationship Specialty Start Date End Date Jennifer Dubose P.A.-C., P.A. [address] [phone] PCP - General 02/15/21 documented as of this encounter
--- OUTSIDE RECORDS SUMMARY | 2024-02-18 21:56 | XMS_ITS | Referral Summary ---
Author Organization [facility] Address [address] [place] [address] Care Team Providers Care Drawing Box Tender Name Role Phone Jennifer Dubose P.A.-C., P.A. Primary Care Provid er Source Comments Patient records contain information from all sites at [facility]. For routine questions regarding patient records, call [phone] during business hours, M-F 8:00 AM - 5:00 PM Central Time. Record requests for emergency care only can be directed to [phone] at any time.[facility] Encounters Date Type Department Care Team Description 01/16/2024 Orders Only [facility]CP [facility] MNT Jennifer Dubose P.Candace.Lissette., P.A. from Last [...] often do you attend chur ch or bahai services? Never 08/25/2021 Do you belong to any clubs o r organizations such as jewish groups, unions, fraternal or athletic groups, or [...] Answer Date Recorded PHQ-2 Score 0 08/25/2021 [facility] Occupat ional Health - Occupational [...] on file Legal Sex Female 7:24 PM LOAN BROKER Gender Identity Female 05/26/2019 10:17 PM LOAN BROKER Sexual Orientation Straight 05/26/2019 10 :17 PM LOAN BROKER Occupation Industry Job Start Date Job End [...] SCREEN HPV REFLEX Routine 05/28/2019 9:52 AM LOAN BROKER General Medical Examination Adult from Last 3 Months or Most Recently Relevant to Health Maintenance Results * ThinPrep Screen HPV Reflex (05/28/2019 9:52 AM LOAN BROKER) 06/03/2019 12:08 PM LOAN BROKER [facility] Report electronically signed by JOEL Live(ASCP) I verify that I have examined all relevant slides/materials for the specimen(s) and rendered or confirmed the diagnosis. 06/03/2019 12:08 PM LOAN BROKER [facility] Gross Description Received specimen in a ThinPrep vial. 06/03/2019 12:08 PM LOAN BROKER [facility] Pap Test Source Cervical/Endocervi kate 06/03/2019 12:08 PM LOAN BROKER [facility] Clinical History na 06/03/19 20 12:08 PM LOAN BROKER [facility] Menstrual Status(LMP, PM, ) na 06/03/2019 12:08 PM LOAN BROKER [facility] Hormone Therapy/Contracep tives na 06/03/2019 12:08 PM LOAN BROKER [facility] Interpretation Cervical/Endocervi kate ??(ThinPrep): Satisfactory for Evaluation Negative for Intraepithelial Lesion or Malignancy 06/03/2019 12:08 PM LOAN BROKER [facility] Varies (Cervix/Endocerv ix) 05/28/2019 9:52 AM LOAN BROKER 05/28/2019 2:13 PM LOAN BROKER us Veronica Erwin APRN.N.PIsabell, M.S.N. LAB PAP PATHDX ORDERABLES Final Result [facility] [address] [place] [address], [facility] Cytology [address] [place] [phone] from Last 3 Months or Most Recently Relevant to Health Maintenance Insurance [facility] Care Teams Drawing Box Tender Relationship Specialty Start Date End Date Jennifer Dubose P.A.-C., P.A. [address] [place] [phone] PCP - General 02/15/21
[2024-02-18] MEDS: NIFEdipine 10 MG CAPSULE 20 MG PO (22:36)
[2024-02-18 22:40] LABS: Appearance Urine Cloudy (Clear); Bilirubin Urine Negative (Negative); Blood Urine 2+ (Negative); Color Urine Yellow (Yellow); Glucose Urine Negative (Negative); Ketones Urine Negative (Negative); Leukocyte Esterase Urine 3+ (Negative); Nitrite Urine Negative (Negative); Protein Urine Negative (Negative); Urobilinogen Urine 0.2 (0.2-1.0)
[2024-02-18] MEDS: LACTATED RINGERS 500 ML 500 ML IV (22:43)
[2024-02-18 22:54] LABS: Amnisure Rom* Negative; Clue Cells No Clue Cells Seen (None Seen); Trichomonas No Trichomonas Seen (None Seen); Yeast No Yeast Seen (None Seen)
[2024-02-18 22:55] LABS: Amorphous Sediment Urine Few; Bacteria Urine Moderate; Squamous Epithelial Cell Urine Few (None-Few); WBC Urine 25-50 (0-5)
[2024-02-18 23:05] LABS: Fetal Fibronectin* POSITIVE (Negative)
[2024-02-18] MEDS: hydrOXYzine pamoate 25 MG CAPSULE 100 MG PO (23:15)
[2024-02-18] MEDS: cefTRIAXone 2 GM VIAL IM (23:33)
[2024-02-19] VITALS (12 sets, daily range): BP systolic 114–134; BP diastolic 65–78; PULSE 91–102; RESP 20–22; TEMP 36.6–36.9; O2SAT 93–100
[2024-02-19] MEDS: MORPHINE 10 MG/ML inj IM (00:04)
[2024-02-19] MEDS: NIFEdipine 10 MG CAPSULE 20 MG PO (00:15)
[2024-02-19] MEDS: LACTATED RINGERS 1000 ML 1,000 ML 500 ML IV (01:44)
--- NOTE | 2024-02-19 02:48 | P.OBT_ITS ---
History of Present Illness History of Present Illness Date Seen: 02/19/24 History of Present Illness: 33 year old at weeks gestation by LMP, HANNAH 04/02/24, presents with contractions of increasing intensity since 1900 on 02/18/24. Upon arrival, she was found to have moderately painful contractions about every 2 minutes. Initial evaluation included wet pre (negative), amnisure (negative), fibronectin (positive) and urinalysis (suspicious for UTI). She was treated with IV fluid hydration, nifedipine 20 mg po x2, and received a dose of ceftriaxone 2g IV. Cervical examination upon admission was 1.5 cm dilated/50% effaced/-2 station, and there was no change in examination over the first two hours of observation. She continued to experience painful contractions, which were unremitting despite po Vistaril and IM morphine. Sterile speculum examination at 2:45 am demonstrated pooling within the vaginal vault of clear to cloudy mucoid fluid suspicious for SROM. Repeat amnisure test was negative. Repeat cervical examination demonstrated 1.5 cm dilation/100 % effacement/-2 station. Baby moving naturally: Yes Bleeding: No Contractions: Yes Leaking fluid: Yes Discharge: Yes Heartburn: No Back pain: No Meds Home Medications and Allergies Home Medications ?Medication ?Instructions ?Recorded ?Confirmed ?Type [id number] 3-fat com #1 27 cap PO 11/14/23 02/16/24 History mg-1 mg-300 mg capsule psyllium seed (sugar) oral powder 1 tbsp PO QDAY 11/14/23 02/18/24 History (Metamucil (sugar) oral powder) aspirin 81 mg tablet,delayed 81 mg PO QDAY 11/20/23 02/18/24 History release Allergies Allergy/AdvReac Type Severity Reaction Status Date / Time insulin isophane (NPH) (From AdvReac Intermediate Hives Verified 02/16/24 15:01 Humulin N NPH U-100 Insulin) [facility] Surgical History History of repair of ACL ?Z98.890 - Other specified postprocedural states (ICD-10) History of tonsillectomy ?Z90.89 - Acquired absence of other organs (ICD-10) Family History Other Diabetes Social History Narrative: 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 Marital status: . Taoist/cultural needs: no. Chemical or radiation exposure: no. Pre- tobacco use: Vape, quit with positive test at weeks. Pre- alcohol use: Less than 1 per day. Current tobacco use: no. Current alcohol use: no. Recreational drug use: no. Dietary restrictions: no. Blood transfusion accep table in an emergency: yes. PSYCHOSOCIAL HISTORY: History of depression or currently depressed: Denies. Current or past physical, emotional, or sexual mistreatment: Denies. Problems that will make it hard to make it to appointments: No. What is your current living situation?: I presently have a place to live Problems where you live: no known problems In the past 12 months, utilities in danger of being shut off: no In past 12 months, lack of transportation kept you from medical appts, meetings, work, or getting things needed for daily living: no In the past 12 mos, have been you worried that your food would run out before you had money to buy more?: never true In the past 12 mos, the food you bought just didn't last and you didn't have money to buy more?: never true Smoking Status: Former smoker How often does anyone, including family, friends and others, physically hurt you : never How often does anyone, including family, friends and others, insult or talk down to you: never How often does anyone, including family, friends and others, threaten you with harm: never How often does anyone, including family, friends and others, scream or curse at you: never Little interest or pleasure in doing things: not at all Feeling down, depressed, or hopeless: not at all History History 1 Elective abortions Para 0 Spontaneous abortions Hx # Term Pregnancies Ectopic pregnancies Hx # Pregnancies Multiple births Number of Living Children OB - H&P: Exam Physical Exam Vital signs: Temp Pulse Resp BP Pulse Ox 98.1 F 91 20 122/69 100 02/19/24 00:59 02/19/24 02:06 02/19/24 00:59 02/19/24 02:06 02/19/24 00:09 Constitutional Constitutional: moderate distress Routine HEENT Exam Head: Present normal inspection Detailed Eye Exam Eyelids: bilateral: normal inspection Routine Neck Exam Neck: Present full ROM Routine Respiratory Exam Respiratory: Present CTA bilaterally Routine Cardiovascular Exam Cardiovascular: RRR Routine Abdominal Exam Abdominal: Present soft (firm with contractions) Comments: gravid Detailed Labor and Delivery Exam Patient Gravid: Yes Dilation (cm): 1 Effacement (%): 100 Cervix position: mid Consistency: soft Tachysystole: No Contraction intensity: Strong/Firm Fetus (Single) Station: -2 Amniotic Membrane Status: intact (amnisure negative) Heart Rate Baseline: 140 Monitor Accelerations: Present Monitor Decelerations: None Mcc Variability: Moderate (6-25) Routine Extremities Exam Extremities: Present full ROM; Absent pedal edema Routine Back/Spine/Pelvis Exam Back/Spine: full ROM Routine Skin Exam Present intact Routine Neurological Exam Present alert and oriented X3 Routine Psychiatric Exam Present normal affect and anxious Results Labs Laboratory Tests 02/18/24 Range/Units 22:15 Urine Color Yellow (Yellow) Urine Appearance Cloudy A (Clear) Urine pH 7.0 (5.0-8.5) Ur Specific [place] 1.020 (1.000-1.030) Urine Protein Negative (Negative) Urine Glucose (UA) Negative (Negative) Urine Ketones Negative (Negative) Urine Blood 2+ A (Negative) Urine Nitrite Negative (Negative) Urine Bilirubin Negative (Negative) Urine Urobilinogen 0.2 (0.2-1.0) Ur Leukocyte Esterase 3+ A (Negative) Urine RBC 2-5 A (0-2) Urine WBC 25-50 A (0-5) Ur Squamous Epith Cells Few (None-Few) Amorphous Sediment Few A (None) Urine Bacteria Moderate A (None) Membrane Rupture Negative Vaginal Trichomonas No Trichomonas Seen (None Seen) Vaginal Yeast No Yeast Seen (None Seen) Vaginal Clue Cells No Clue Cells Seen (None Seen) Group B Strep DNA Pending Fibronectin POSITIVE (Negative) Assessment and Plan Assessment and plan (1) labor: Status: Acute (2) GDM, class A2: Status: Acute (3) Obesity (BMI 30-39.9): Status: Acute (4) Anemia affecting in second trimester: Status: Acute Plan 1. Magnesium sulfate infusion 2g/hour for tocolysis during transport. 2. Betamethasone 12 mg IM. 3. GBS swab pending. 4. Transport to [facility]. Dr. Jesus to accept transfer. [facility] ambulance.
[2024-02-19] MEDS: MAGNESIUM Infusion 40 GM/1,000 ML IV.SOLN IVPB (02:55)
[2024-02-19] MEDS: BETAMETHASONE SOD PHOS/ACETATE 6 MG/ML ML 12 MG IM (02:56)
[2024-02-19 02:58] LABS: Amnisure Rom* Negative
--- NOTE | 2024-02-19 03:44 | PC.OBNST ---
NST Note NST Note Start: 02/18/24 21:55 Freq: ONCE Status: Complete Protocol: Document 02/19/24 03:00 AYDE (Rec: 02/19/24 03:43 AYDE Desktop) NST Note 1 Para (# of births) 0 EDC 04/02/24 Gestational Age In Weeks & Days 33 Weeks & 6 Days High Risk Factors Diabetes - Gestational Insulin Patient Presented with Complaint(s) of Contractions/cramping,Leaking fluid Reactive Yes Appropriate for Gestational Age Yes KEITH Allred RN Date 02/19/24 Reactive Yes Appropriate for Gestational Age Yes KEITH Page Date 02/19/24 OB NST charge Yes Complete NST Note via Write Note Yes The provider's electronic signature indicates the NST is reactive/appropriate for gestational age. *Note to provider: If an addendum is required, open the patient's chart and click on the note under the Nurse/Allied Health tab.
[2024-02-19 18:24] LABS: Strep B DNA Probe POSITIVE (Negative)
[2024-02-19 18:48] LABS: Strep B Susceptibility Needed? No
== END 2024-02-19 03:30 | disposition short-term general hospital (02) ==
LOC: OB OUT 21:54 → OB 21:54
PROVIDERS: Visit Provider Obstetrics & Gynecology
DX: O24.419 Gestational diabetes mellitus in pregnancy, unspecified control (principal)
CPT/HCPCS: 59025; 81001; 81003; 82962; 84112; 87081; 87086; 87210; 87653; G0463; A9270; J0696; J0702; J2270; J3475; J7120

== ENCOUNTER 2024-02-19 03:26 | Outpatient (CLI) | payer OTHER, SELFPAY ==
--- OUTSIDE RECORDS SUMMARY | 2024-02-24 19:57 | XMS_ITS | Clinical Summary ---
Author Organization [facility] Address [address] [place] [address] Care Team Providers Care Top Spotter Name Role Phone No Ref-Primary, Physician Primary Care Provider Allergies Active Allergy Reactions Criticality Noted Date Comments Insulin Isophane Hives,Rash Low 02/19/2024 Medications Vit-Fe Fumarate-FA ( MULTIVITAMIN PLUS IRON) 27-1 MG TABS Take 1 tablet by mouth daily. Active Ferrous Sulfate 324 (65 Fe) MG TBEC Take 325 mg by mouth every other day. Active Vit-Fe Fumarate-FA ( MULTIVITAMIN W/IRON) 27-0.8 MG tablet Take 1 tablet by mouth daily. Discontin ued(Med Rec(No AVS / No eCancel)) insulin glargine (LANTUS VIAL) 100 UNIT/ML vial Inject 20 Units subcutaneously at bedtime. Discontin ued(Stop at Discharge ) aspirin (ASA) 81 MG chewable tablet Take 81 mg by mouth daily. Discontin ued(Stop at Discharge ) Active Problems Problem Noted Date Diagnosed Date labor 02/19/2024 Encounters Date Type Department Care Team Description 02/22/2024 Encounter [facility] [address] [place] [address] 02/19/2024 8:31 AM MONOTYPE CASTER Anesthesia Event [facility] [address] [place] [address] Donald Hernandez MD 02/19/2024 4:09 AM MONOTYPE CASTER - 02/22/2024 11:00 AM MONOTYPE CASTER Hospital Encounter [facility] [address] [place] [id number] Nando Jesus MD Cho, Regina N, MD Bayer, Chelsea, MD Premature delivery before 37 weeks, single or unspecified fetus (Primary Dx) Discharge Disposition: Home or Self Care 02/19/2024 Travel from Last 3 Months Social History Tobacco Use Types Packs/Day Years Used Date Smoking Tobacco: Former Cigarettes Q uit: 2022 Vaping Device Smokeless Tobacco: Never Tobacco Cessation:Counseling Given: Not Answered Alcohol Use Standard Drinks/Week Comments Not Currently 0 (1 standard drink = 0.6 oz pur e alcohol) [place] Depression Scale Answer Date Recorded Last EPDS Total Score Not on file 02/22/2024 The thought of harming myself has occurred to me . Never 02/22/2024 Food Insecurity Answer Date Recorded Within the past 12 months, d id you worry that your food would run out before you got money to buy more? No 02/20/2024 Within the past 12 months, d id the food you bought just not last and you didn? t have money to get more? No 02/20/2024 Housing Stability Answer Date Recorded Do you have housing? (Felicita gaitan is defined as stable permanent housing and does not include staying ouside in a car, in a tent, in an abandoned building, in an overnight group home, or couch-surfing.) Yes 02/20/2024 Are you worried about losing your housing? No 02/20/2024 Financial Resource Strain Answer Date R ecorded Within the past 12 months, h ave you or your family members you live with been unable to get utilities (heat, electricity) when it was really needed? No 02/20/2024 Transportation Needs Answer Date Record ed Within the past 12 months, h as lack of transportation kept you from medical appointments, getting your medicines, non-medical meetings or appointments, work, or from getting things that you need? No 02/20/2024 Interpersonal Safety Answer Date Record ed Do you feel physically and e motionally safe where you currently live? Yes 02/20/2024 Within the past 12 months, h ave you been hit, slapped, kicked or otherwise physically hurt by someone? No 02/20/2024 Within the past 12 months, h ave you been humiliated or emotionally abused in other ways by your partner or ex-partner? No 02/20/2024 Comments No Sex and Gender Information Value Date Recorded Sex Assigned at Not on file Legal Sex Female 4:08 AM MONOTYPE CASTER Gender Identity Not on file Sexual Orientation Not on file Last Filed Vital Signs Vital Sign Reading Time Taken Comments Blood Pressure 130/74 02/22/2024 8:41 AM MONOTYPE CASTER Pulse 78 02/22/2024 8:41 AM MONOTYPE CASTER Temperature 36.9 ??C (98.4 ??F) 02/22/2024 8 :41 AM MONOTYPE CASTER Respiratory Rate 16 02/22/2024 8:41 AM MONOTYPE CASTER Oxygen Saturation 95% 02/20/2024 6:3 8 AM MONOTYPE CASTER Inhaled Oxygen Concentration - - Weight 112 kg (247 lb) 02/19/2024 12:00 PM MONOTYPE CASTER Clinic visit on 02/16/24 Height 172.7 cm (5' 8) 02/19/2024 12:0 0 PM MONOTYPE CASTER Body Mass Index 37.56 02/19/2024 12:00 PM MONOTYPE CASTER Plan of Treatment Health Maintenance Due Date Last Done Comments ADVANCE CARE PLANNING 1991 ANNUAL REVIEW OF HM ORDERS 1991 YEARLY PREVENTIVE VISIT 1991 HEPATITIS C SCREENING 2009 HEPATITIS B IMMUNIZATION (1 of 3 - 19+ 3-dose series) 2010 PAP 02/24/2012 DTAP/TDAP/TD IMMUNIZATION (1 - Tdap) 02/24/2016 PHQ-2 (once per calendar year) 2023 COVID-19 Vaccine (1 - 2023-2 5 season) 2023 INFLUENZA VACCINE (#1) 2023 RSV VACCINE (1 - 1-dose 75+ series) 2066 HIV SCREENING Completed 11/14/2023 HPV IMMUNIZATION Aged Out No longer e ligible based on patient's age to complete this topic MENINGITIS IMMUNIZATION Aged Out No l onger eligible based on patient's age to complete this topic Pneumococcal Vaccine: Pediat rics (0 to 5 Years) and At-Risk Patients (6 to 64 Years) Aged Out No longer eligi ble based on patient's age to complete this topic RSV MONOCLONAL ANTIBODY Aged Out No l onger eligible based on patient's age to complete this topic Procedures Procedure Name Priority Date/Time Associated Diagnosis Comments GLUCOSE BY METER Routine 02/21/2024 6:39 AM MONOTYPE CASTER GLUCOSE BY METER Routine 02/20/2024 7:26 AM MONOTYPE CASTER GLUCOSE BY METER Routine 02/20/2024 5:32 AM MONOTYPE CASTER GLUCOSE BY METER Routine 02/20/2024 4:29 AM MONOTYPE CASTER GLUCOSE BY METER Routine 02/20/2024 3:25 AM MONOTYPE CASTER GLUCOSE BY METER Routine 02/20/2024 2:21 AM MONOTYPE CASTER GLUCOSE BY METER Routine 02/20/2024 1:26 AM MONOTYPE CASTER GLUCOSE BY METER Routine 02/20/2024 12:1 7 AM MONOTYPE CASTER GLUCOSE BY METER Routine 02/19/2024 11:1 9 PM MONOTYPE CASTER GLUCOSE BY METER Routine 02/19/2024 10:1 0 PM MONOTYPE CASTER GLUCOSE BY METER Routine 02/19/2024 9:12 PM MONOTYPE CASTER GLUCOSE BY METER Routine 02/19/2024 8:17 PM MONOTYPE CASTER GLUCOSE BY METER Routine 02/19/2024 7:20 PM MONOTYPE CASTER GLUCOSE BY METER Routine 02/19/2024 6:11 PM MONOTYPE CASTER GLUCOSE BY METER Routine 02/19/2024 5:14 PM MONOTYPE CASTER GLUCOSE BY METER Routine 02/19/2024 4:16 PM MONOTYPE CASTER GLUCOSE BY METER Routine 02/19/2024 3:11 PM MONOTYPE CASTER GLUCOSE BY METER Routine 02/19/2024 2:13 PM MONOTYPE CASTER GLUCOSE BY METER Routine 02/19/2024 2:09 PM MONOTYPE CASTER GLUCOSE BY METER Routine 02/19/2024 1:08 PM MONOTYPE CASTER GLUCOSE BY METER Routine 02/19/2024 12:0 6 PM MONOTYPE CASTER GLUCOSE BY METER Routine 02/19/2024 10:3 9 AM MONOTYPE CASTER GLUCOSE BY METER Routine 02/19/2024 10:0 5 AM MONOTYPE CASTER ANE EPIDURAL BLOCK Routine 02/19/2024 9: 32 AM MONOTYPE CASTER GLUCOSE BY METER Routine 02/19/2024 8:53 AM MONOTYPE CASTER ABO/RH TYPE AND SCREEN STAT 02/19/2024 6:32 AM MONOTYPE CASTER TYPE AND SCREEN, ADULT STAT 02/19/2024 6:32 AM MONOTYPE CASTER TREPONEMA ABS W REFLEX TO RPR AND TITER STAT 02/19/2024 6:32 AM MONOTYPE CASTER HEMOGLOBIN STAT 02/19/2024 6:32 AM MONOTYPE CASTER WET PREPARATION STAT 02/19/2024 5:45 AM MONOTYPE CASTER FERN TEST FOR RUPTURE OF MEMBRANES Routine 02/19/2024 5:35 AM MONOTYPE CASTER HIV 1&2 ANTIBODY (EXTERNAL RESULT) Routine 11/14/2023 12:00 PM CDT from Last 3 Months or Most Recently Relevant to Health Maintenance Results * Glucose by meter (02/21/2024 6:39 AM MONOTYPE CASTER) Only the most recent of24 resultswithin the time period is included. GLUCOSE BY METER POCT 81 70 - 99 mg/dL 02/21/2024 6:45 AM MONOTYPE CASTER RH LABORATORY POC Blood, Capillary BLOOD SPECIMEN / Unknown 02/21/2024 6:39 AM MONOTYPE CASTER 02/21/2024 6:45 AM MONOTYPE CASTER us Tea Goldsmith MD LAB - BEAKER POCT Final Result RH LABORATORY POC [facility] Acute Care Lab [address] [facility] Lab (1st floor, no room number) [place] [address] * Epidural Block (02/19/2024 9:32 AM MONOTYPE CASTER) Narrative Donald Hernandez MD - 02/19/2024 9:32 AM MONOTYPE CASTER Donald Hernandez MD ? 02/19/2024 ??9:33 AM Epidural catheter Procedure Note Pre-Procedure Staff - ? Anesthesiologist: ??Donald Hernandez MD ? Performed By: anesthesiologist Procedure Documentation Procedure: epidural catheter Comments: ??Pre-Procedure Performed by Donald Hernandez MD Location: OB. ?? PreAnesthestic Checklist: patient identified, IV checked, risks and benefits discussed, informed consent obtained, monitors and equipment checked, pre-op evaluation and at physician/surgeon's request. Timeout Correct Patient: Yes Correct Procedure: Epidural catheter placement Correct Site: Yes Correct Position: Yes Procedure Documentation Procedure: ?? Epidural catheter block for Labor Patient currently in labor and she and OBMD request a labor epidural to control her labor pains. Patient was interviewed and examined. Procedure and risks including but not limited to bleeding, infection, nerve injury, paralysis, PDPH, and inadequate block requiring intervention discussed with patient. Questions answered. This epidural is to be placed in anticipation of vaginal delivery. ??She consents to the epidural procedure. Time-out was performed. ??I or my partners remain immediately available for management of any issues or complications and will monitor at appropriate intervals. Procedure: Patient sitting. Betadine prep x 3. Sterile drape applied. Lidocaine 1% ??local infiltration at L 3-4. ??17 G. Tuohy needle at L3-4 by loss of resistance into epidural space. ??No CSF, paresthesia or blood. 1.5 % Lidocaine with 1:200,000 Epinephrine 5cc test dose. Then 0.25% bupivicaine 10 cc with NS 5 cc. ??Epidural catheter inserted w/o resistance to 5 cm in epidural space. ??Aspiration negative for blood and CSF. ?? Negative for neuro change, paresthesia or symptoms of intravascular injection or intrathecal injection. Infusion orders written and infusion of 0.125% bupivicaine 15cc per hour started. Donald Hernandez MD FOR [facility] ([facility]) ONLY: ?? Pain Team Contact information: please page the Pain Team Via [employer]Reading[employer]. Search Pain. During daytime hours, please page the attending first. At night please page the resident first. us Donald Hernandez MD [place] ANESTHESIA Final Result * Adult Type and Screen (02/19/2024 6:32 AM MONOTYPE CASTER) ABO/RH(D) A POS 02/19/2024 5:24 AM MONOTYPE CASTER RH BLOOD BANK Antibody Screen Negative Negative 02/19/2024 5:24 AM MONOTYPE CASTER RH BLOOD BANK SPECIMEN EXPIRATION DATE [id number] 02/19/2024 5:24 AM MONOTYPE CASTER BLOOD BANK Blood STRUCTURE OF LEFT HAND / Unknown Venipuncture / Unknown 02/19/2024 6:32 AM MONOTYPE CASTER 02/19/2024 6:37 AM MONOTYPE CASTER Nando Jesus MD LAB - BLOOD BANK TEST ORDER Melania l Result Performing Organization Address City/[facility]/ZIP Co de Phone Number BLOOD BANK [address] [place] [address] * Treponema Abs w Reflex to RPR and Titer (02/19/2024 6:32 AM MONOTYPE CASTER) Treponema Antibody Total Nonreactive Nonreactive 02/19/2024 1:02 PM MONOTYPE CASTER SPECIALTY CORE/PROT/EN DO Blood STRUCTURE OF LEFT HAND / Unknown Venipuncture / Unknown 02/19/2024 6:32 AM MONOTYPE CASTER 02/19/2024 6:37 AM MONOTYPE CASTER Nando Jesus MD LAB - BLOOD ORDERABLES Final Res ult SPECIALTY CORE/PROT/ENDO [facility] Specialty Core/Prot/Endo [address] [facility] [address] Building, Room 3-[address] * (ABNORMAL) Hemoglobin (02/19/2024 6:32 AM MONOTYPE CASTER) Hemoglobin 11.1(L) 11.7 - 15.7 g/dL 02/19/2024 6:39 AM MONOTYPE CASTER RH LABORATORY Blood STRUCTURE OF LEFT HAND / Unknown Venipuncture / Unknown 02/19/2024 6:32 AM MONOTYPE CASTER 02/19/2024 6:37 AM MONOTYPE CASTER us Nando Jesus MD LAB - BLOOD ORDERABLES Final Res ult LABORATORY [facility] Care Lab [address] Lab (1st floor, no room number) [address] * (ABNORMAL) Wet preparation (02/19/2024 5:45 AM MONOTYPE CASTER) Pathologist [facility] Trichomonas Absent Absent HEMA 02/19/2024 6:21 AM MONOTYPE CASTER LABORATORY Yeast Absent Absent HEMA 02/19/2024 6:21 AM MONOTYPE CASTER RH LABORATORY Clue Cells Absent Absent HEMA 02/19/2024 6:21 AM MONOTYPE CASTER RH LABORATORY WBCs/high power field 2+(A) None HEMA 02/19/2024 6:21 AM MONOTYPE CASTER RH LABORATORY Swab VAGINAL STRUCTURE / Unknown Non-blood Collection / Unknown 02/19/2024 5:45 AM MONOTYPE CASTER 02/19/2024 6:00 AM MONOTYPE CASTER us Nando Jesus MD LAB - MICRO GENERAL ORDERABLES F inal Result LABORATORY [facility] Care Lab [address] Lab (1st floor, no room number) [address] * Fern Test for Rupture of Membranes (02/19/2024 5:35 AM MONOTYPE CASTER) Fern Crystallization No ferning present No ferning present HEMA 02/19/2024 6:20 AM MONOTYPE CASTER RH LABORATORY Cervical fluid VAGINAL STRUCTURE / Unknown Non-blood Collection / Unknown 02/19/2024 5:35 AM MONOTYPE CASTER 02/19/2024 6:00 AM MONOTYPE CASTER us Nando Jesus MD LAB - BODY FLUIDS ORDERABLES Fin al Result RH LABORATORY [facility] Acute Care Lab [address] Lab (1st floor, no room number) [place] [address] * HIV-1 Antibody (External Result) (11/14/2023 12:00 PM CDT) HIV 1&2 Antibody (External) Negative Nonreactive EXTERNAL LAB 11/14/2023 12:0 0 PM CDT us Patient Reported LAB - HIM EXTERNAL RESULT Final Result Performing Organization Address City/[facility]/ZIP Co de Phone Number EXTERNAL LAB External Lab from Last 3 Months or Most Recently Relevant to Health Maintenance Insurance [facility] [place] [id number] Advance Directives For more information, please contact: [phone] * Full Code (Latest Code Status on File) Date Activated Date Inactivated Comments 02/19/2024 5:23 AM 02/22/2024 1:36 PM All basic an d advanced life-sustaining interventions are performed as appropriate Question Answer Comments Code status determined by: Discussion with yoe nt/ legal decision maker Care Teams Top Spotter Relationship Specialty Start Date End Date No Ref-Primary, Physician PCP - General 02/19/24
--- OUTSIDE RECORDS SUMMARY | 2024-02-24 19:57 | XMS_ITS | Encounter Summary ---
Author Organization [facility] Address [address] [facility] [place] [address] Care Team Providers Care Stove Installer Name Role Phone No Ref-Primary, Physician Primary Care Provider Encounter Details Date Type Department Care Team (Late st Contact Info) Description 02/22/2024 Encounter [facility] Intensive Care Unit [address] [place] [address] Social History Tobacco Use Types Packs/Day Years Used Date Smoking Tobacco: Former Cigarettes Q uit: 2022 Vaping Device Smokeless Tobacco: Never Alcohol Use Standard Drinks/Week Comments Not Currently 0 (1 standard drink = 0.6 oz pur e alcohol) [place] Depression Scale Answer Date Recorded Last EPDS [...] Answer Date Recorded Do you have housing? 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 follow up with Maureen. Prescription for hospital grade pump given. Reviewed when to switchto maintain mode. Questions answered. [employer] documented in this encounter Plan of Treatment Not on file documented as of this encounter Visit Diagnoses Not on filedocumented in this encounter Care Teams Stove Installer Relationship Specialty Start Date End Date No Ref-Primary, Physician PCP - General 02/19/24 documented as of this encounter
--- OUTSIDE RECORDS SUMMARY | 2024-02-24 19:57 | XMS_ITS | Referral Summary ---
Author Organization [place] [facility] [place] [address] Care Team Providers Care Package Worker Name Role Phone No Ref-Primary, Physician Primary Care Provider Encounters Date Type Department Care Team Description 02/22/2024 Encounter [facility] Intensive Care Unit [address] [place] [address] 02/19/2024 4:09 AM DAMAGE ADJUSTER - 02/22/2024 11:00 AM DAMAGE ADJUSTER Hospital Encounter [facility] [address] [place] [place] [address] Nando Jesus MD Cho, Regina N, MD Bayer, Chelsea, MD Premature delivery before 37 weeks, single or unspecified fetus (Primary Dx) Discharge Disposition: Home or Self Care 02/19/2024 8:31 AM DAMAGE ADJUSTER Anesthesia Event [facility] [address] [place] [address] Donald Hernandez MD 02/19/2024 Travel from Last 3 Months Allergies Active Allergy Reactions Criticality Noted Date Comments Insulin Isophane Hives,Rash Low 02/19/2024 Medications Vit-Fe Fumarate-FA ( MULTIVITAMIN PLUS IRON) 27-1 MG TABS Take 1 tablet by mouth daily. Active Ferrous Sulfate 324 (65 Fe) MG TBEC Take 325 mg by mouth every other day. Active Vit-Fe Fumarate-FA ( MULTIVITAMIN W/IRON) 27-0.8 MG tablet Take 1 tablet by mouth daily. 11/04/2 024 Discontin ued(Med Rec(No AVS / No eCancel)) insulin glargine (LANTUS VIAL) 100 UNIT/ML vial Inject 20 Units subcutaneously at bedtime. Discontin ued(Stop at Discharge ) aspirin (ASA) 81 MG chewable tablet Take 81 mg by mouth daily. Discontin ued(Stop at Discharge ) Active Problems Problem Noted Date Diagnosed Date labor 02/19/2024 Social History Tobacco Use Types Packs/Day Years Used Date Smoking Tobacco: Former Cigarettes Q uit: 2022 Vaping Device Smokeless Tobacco: Never Tobacco Cessation:Counseling Given: Not Answered Alcohol Use Standard Drinks/Week Comments Not Currently 0 (1 standard drink = 0.6 oz pur e alcohol) [place] Depression Scale Answer Date Recorded Last EPDS [...] Date Recorded Do you have housing? (Felicita g is defined as stable permanent housing and does not include staying ouside in a car, in a tent, in an abandoned building, in an overnight detention, or couch-surfing.) Yes 02/20/2024 Are you worried [...] on file Legal Sex Female 4:08 AM DAMAGE ADJUSTER Gender Identity Not on file Sexual Orientation Not on file Last Filed Vital Signs Vital Sign Reading Time Taken Comments Blood Pressure 130/74 02/22/2024 8:41 AM DAMAGE ADJUSTER Pulse 78 02/22/2024 8:41 AM DAMAGE ADJUSTER Temperature 36.9 ??C (98.4 ??F) 02/22/2024 8 :41 AM DAMAGE ADJUSTER Respiratory Rate 16 02/22/2024 8:41 AM DAMAGE ADJUSTER Oxygen Saturation 95% 02/20/2024 6:3 8 AM DAMAGE ADJUSTER Inhaled Oxygen Concentration - - Weight 112 kg (247 lb) 02/19/2024 12:00 PM DAMAGE ADJUSTER Clinic visit on 02/16/24 Height 172.7 cm (5' 8) 02/19/2024 12:0 0 PM DAMAGE ADJUSTER Body Mass Index 37.56 02/19/2024 12:00 PM DAMAGE ADJUSTER Plan of Treatment Not on file Procedures Procedure Name Priority Date/Time Associated Diagnosis Comments GLUCOSE BY METER Routine 02/21/2024 6:39 AM DAMAGE ADJUSTER GLUCOSE BY METER Routine 02/20/2024 7:26 AM DAMAGE ADJUSTER GLUCOSE BY METER Routine 02/20/2024 5:32 AM DAMAGE ADJUSTER GLUCOSE BY METER Routine 02/20/2024 4:29 AM DAMAGE ADJUSTER GLUCOSE BY METER Routine 02/20/2024 3:25 AM DAMAGE ADJUSTER GLUCOSE BY METER Routine 02/20/2024 2:21 AM DAMAGE ADJUSTER GLUCOSE BY METER Routine 02/20/2024 1:26 AM DAMAGE ADJUSTER GLUCOSE BY METER Routine 02/20/2024 12:1 7 AM DAMAGE ADJUSTER GLUCOSE BY METER Routine 02/19/2024 11:1 9 PM DAMAGE ADJUSTER GLUCOSE BY METER Routine 02/19/2024 10:1 0 PM DAMAGE ADJUSTER GLUCOSE BY METER Routine 02/19/2024 9:12 PM DAMAGE ADJUSTER GLUCOSE BY METER Routine 02/19/2024 8:17 PM DAMAGE ADJUSTER GLUCOSE BY METER Routine 02/19/2024 7:20 PM DAMAGE ADJUSTER GLUCOSE BY METER Routine 02/19/2024 6:11 PM DAMAGE ADJUSTER GLUCOSE BY METER Routine 02/19/2024 5:14 PM DAMAGE ADJUSTER GLUCOSE BY METER Routine 02/19/2024 4:16 PM DAMAGE ADJUSTER GLUCOSE BY METER Routine 02/19/2024 3:11 PM DAMAGE ADJUSTER GLUCOSE BY METER Routine 02/19/2024 2:13 PM DAMAGE ADJUSTER GLUCOSE BY METER Routine 02/19/2024 2:09 PM DAMAGE ADJUSTER GLUCOSE BY METER Routine 02/19/2024 1:08 PM DAMAGE ADJUSTER GLUCOSE BY METER Routine 02/19/2024 12:0 6 PM DAMAGE ADJUSTER GLUCOSE BY METER Routine 02/19/2024 10:3 9 AM DAMAGE ADJUSTER GLUCOSE BY METER Routine 02/19/2024 10:0 5 AM DAMAGE ADJUSTER ANE EPIDURAL BLOCK Routine 02/19/2024 9: 32 AM DAMAGE ADJUSTER GLUCOSE BY METER Routine 02/19/2024 8:53 AM DAMAGE ADJUSTER ABO/RH TYPE AND SCREEN STAT 02/19/2024 6:32 AM DAMAGE ADJUSTER TYPE AND SCREEN, ADULT STAT 02/19/2024 6:32 AM DAMAGE ADJUSTER TREPONEMA ABS W REFLEX TO RPR AND TITER STAT 02/19/2024 6:32 AM DAMAGE ADJUSTER HEMOGLOBIN STAT 02/19/2024 6:32 AM DAMAGE ADJUSTER WET PREPARATION STAT 02/19/2024 5:45 AM DAMAGE ADJUSTER FERN TEST FOR RUPTURE OF MEMBRANES Routine 02/19/2024 5:35 AM DAMAGE ADJUSTER HIV 1&2 ANTIBODY (EXTERNAL RESULT) Routine 11/14/2023 12:00 PM CDT from Last 3 Months or Most Recently Relevant to Health Maintenance Results * Glucose by meter (02/21/2024 6:39 AM DAMAGE ADJUSTER) Only the most recent of24 resultswithin the time period is included. GLUCOSE BY METER POCT 81 70 - 99 mg/dL 02/21/2024 6:45 AM DAMAGE ADJUSTER LABORATORY POC Blood, Capillary BLOOD SPECIMEN / Unknown 02/21/2024 6:39 AM DAMAGE ADJUSTER 02/21/2024 6:45 AM DAMAGE ADJUSTER us Tea Goldsmith MD LAB - AKER POCT Final Result LABORATORY POC [facility] Acute Care Lab [address] [place] [facility] Lab (1st floor, no room number) [place] [address] * Epidural Block (02/19/2024 9:32 AM DAMAGE ADJUSTER) Narrative Donald Hernandez MD - 02/19/2024 9:32 AM DAMAGE ADJUSTER Donald Hernandez MD ? 02/19/2024 ??9:33 AM [...] per hour started. Donald Hernandez MD FOR [facility] ([facility]) ONLY: ?? Pain Team Contact information: please page the Pain Team Via [employer]. Search Pain. During daytime hours, please page the attending first. At night please page the resident first. us Donald Hernandez MD [place] ANESTHESIA Final Result * Adult Type and Screen (02/19/2024 6:32 AM DAMAGE ADJUSTER) ABO/RH(D) A POS 02/19/2024 5:24 AM DAMAGE ADJUSTER RH BLOOD BANK Antibody Screen Negative Negative 02/19/2024 5:24 AM DAMAGE ADJUSTER RH BLOOD BANK SPECIMEN EXPIRATION DATE [id number] 02/19/2024 5:24 AM DAMAGE ADJUSTER RH BLOOD BANK Blood STRUCTURE OF LEFT HAND / Unknown Venipuncture / Unknown 02/19/2024 6:32 AM DAMAGE ADJUSTER 02/19/2024 6:37 AM DAMAGE ADJUSTER Nando Jesus MD LAB - BLOOD BANK TEST ORDER Melania l Result BLOOD BANK [address] [place] [address], [facility] * Treponema Abs w Reflex to RPR and Titer (02/19/2024 6:32 AM DAMAGE ADJUSTER) Treponema Antibody Total Nonreactive Nonreactive 02/19/2024 1:02 PM DAMAGE ADJUSTER SPECIALTY CORE/PROT/EN DO Blood STRUCTURE OF LEFT HAND / Unknown Venipuncture / Unknown 02/19/2024 6:32 AM DAMAGE ADJUSTER 02/19/2024 6:37 AM DAMAGE ADJUSTER Nando Jesus MD LAB - BLOOD ORDERABLES Final Res ult Performing Organization Address City/[facility]/ZIP Co de Phone Number SPECIALTY CORE/PROT/ENDO Specialty Core/Prot/Endo [address] [facility], Room [address] * (ABNORMAL) Hemoglobin (02/19/2024 6:32 AM DAMAGE ADJUSTER) Hemoglobin 11.1(L) 11.7 - 15.7 g/dL 02/19/2024 6:39 AM DAMAGE ADJUSTER LABORATORY Blood STRUCTURE OF LEFT HAND / Unknown Venipuncture / Unknown 02/19/2024 6:32 AM DAMAGE ADJUSTER 02/19/2024 6:37 AM DAMAGE ADJUSTER Nando Jesus MD LAB - BLOOD ORDERABLES Final Res ult [facility] Acute Care Lab [address] [facility] Lab (1st floor, no room number) [place] [address], [facility] * (ABNORMAL) Wet preparation (02/19/2024 5:45 AM DAMAGE ADJUSTER) Trichomonas Absent Absent HEMA 02/19/2024 6:21 AM DAMAGE ADJUSTER LABORATORY Yeast Absent Absent HEMA 02/19/2024 6:21 AM DAMAGE ADJUSTER RH LABORATORY Clue Cells Absent Absent HEMA 02/19/2024 6:21 AM DAMAGE ADJUSTER RH LABORATORY WBCs/high power field 2+(A) None HEMA 02/19/2024 6:21 AM DAMAGE ADJUSTER RH LABORATORY Swab VAGINAL STRUCTURE / Unknown Non-blood Collection / Unknown 02/19/2024 5:45 AM DAMAGE ADJUSTER 02/19/2024 6:00 AM DAMAGE ADJUSTER us Nando Jesus MD LAB - MICRO GENERAL ORDERABLES F inal Result LABORATORY [facility] Lab [address] Lab (1st floor, no room number) [address] * Fern Test for Rupture of Membranes (02/19/2024 5:35 AM DAMAGE ADJUSTER) Fern Crystallization No ferning present No ferning present HEMA 02/19/2024 6:20 AM DAMAGE ADJUSTER LABORATORY Cervical fluid VAGINAL STRUCTURE / Unknown Non-blood Collection / Unknown 02/19/2024 5:35 AM DAMAGE ADJUSTER 02/19/2024 6:00 AM DAMAGE ADJUSTER us Nando Jesus MD LAB - BODY FLUIDS ORDERABLES Fin al Result LABORATORY [facility] Lab [address] Lab (1st floor, no room number) [address] * HIV-1 Antibody (External Result) (11/14/2023 12:00 PM CDT) HIV 1&2 Antibody (External) Negative Nonreactive EXTERNAL LAB 11/14/2023 12:0 0 PM CDT us Patient Reported LAB - HIM EXTERNAL RESULT Final Result EXTERNAL LAB External Lab from Last 3 Months or Most Recently Relevant to Health Maintenance [facility] Advance Directives For more information, please contact: [phone] * Full Code (Latest Code Status on File) Date Activated Date Inactivated Comments 02/19/2024 5:23 AM 02/22/2024 1:36 PM All basic an d advanced life-sustaining interventions are performed as appropriate Question Answer Comments Code status determined by: Discussion with patie nt/ legal decision maker Care Teams Package Worker Relationship Specialty Start Date End Date No Ref-Primary, Physician PCP - General 02/19/24
--- OUTSIDE RECORDS SUMMARY | 2024-02-24 19:58 | XMS_ITS | Clinical Summary ---
Author Organization [facility] Address [address] [place] [address] Care Team Providers Care Pca Name Role Phone Jennifer Dubose P.A.-C., P.A. Primary Care Provid er Source Comments Patient records contain information from all sites at [facility]. For routine questions regarding patient records, call [phone] during business hours, M-F 8:00 AM - 5:00 PM Central Time. Record requests for emergency care only can be directed to [phone] at any time.[facility] Allergies No known active allergies Medications No known medications Active Problems Problem Noted Date Diagnosed Date Hidradenitis Suppurativa 12/05/2012 Dependence Nicotine 12/06/2010 Polycystic Ovary Syndrome 11/04/2005 Hirsutism 10/21/2005 Encounters Date Type Department Care Team Description 01/16/2024 Orders [facility] P.[facility].-[facility]., P.A. from Last 3 [...] often do you attend chur ch or jainism services? Never 08/25/2021 Do you belong to any clubs o r organizations such as baptism groups, unions, fraternal or athletic groups, or [...] Answer Date Recorded PHQ-2 Score 0 08/25/2021 [facility] of Occupat ional Health - Occupational [...] on file Legal Sex Female 7:24 PM CARDIO CLINICIAN Gender Identity Female 05/26/2019 10:17 PM CARDIO CLINICIAN Sexual Orientation Straight 05/26/2019 10 :17 PM CARDIO CLINICIAN Occupation Industry Job Start Date Job End [...] SCREEN HPV REFLEX Routine 05/28/2019 9:52 AM CARDIO CLINICIAN General Medical Examination Adult from Last 3 Months or Most Recently Relevant to Health Maintenance Results * ThinPrep Screen HPV Reflex (05/28/2019 9:52 AM CARDIO CLINICIAN) 06/03/2019 12:08 PM CARDIO CLINICIAN [facility] Report electronically signed by JOEL Live(ASCP) I verify that I have examined all relevant slides/materials for the specimen(s) and rendered or confirmed the diagnosis. 06/03/2019 12:08 PM CARDIO CLINICIAN [facility] Gross Description Received specimen in a ThinPrep vial. 06/03/2019 12:08 PM CARDIO CLINICIAN [facility] Pap Test Source Cervical/Endocervi kate 06/03/2019 12:08 PM CARDIO CLINICIAN [facility] Clinical History na 06/03/19 20 12:08 PM CARDIO CLINICIAN [facility] Menstrual Status(LMP, PM, ) na 06/03/2019 12:08 PM CARDIO CLINICIAN [facility] Hormone Therapy/Contracep tives na 06/03/2019 12:08 PM CARDIO CLINICIAN [facility] Interpretation Cervical/Endocervi kate ??(ThinPrep): Satisfactory for Evaluation Negative for Intraepithelial Lesion or Malignancy 06/03/2019 12:08 PM CARDIO CLINICIAN [facility] Varies (Cervix/Endocerv ix) 05/28/2019 9:52 AM CARDIO CLINICIAN 05/28/2019 2:13 PM CARDIO CLINICIAN us Veronica Erwin APRN.N.P., M.S.N. LAB PAP PATHDX ORDERABLES Final Result [facility] [address] [place] [address], [facility]ology [address] [place] [address] from Last 3 Months or Most Recently Relevant to Health Maintenance Insurance [facility] Care Teams Pca Relationship Specialty Start Date End Date Jennifer Dubose P.A.-C., P.A. [address] [place] [phone] PCP - General 02/15/21
--- OUTSIDE RECORDS SUMMARY | 2024-02-24 19:58 | XMS_ITS | Referral Summary ---
Author Organization [facility] Address [address] [place] [address] Care Team Providers Care Buffer Nickel Name Role Phone Jennifer Dubose P.A.-C., P.A. Primary Care Provid er Source Comments Patient records contain information from all sites at [facility]. For routine questions regarding patient records, call [phone] during business hours, M-F 8:00 AM - 5:00 PM Central Time. Record requests for emergency care only can be directed to [phone] at any time.[facility] Encounters Date Type Department Care Team Description 01/16/2024 Orders Only [facility]CP [facility] M[facility] Jennifer Dubose P.Candace.Lissette., P.A. from [...] often do you attend chur ch or restorationist services? Never 08/25/2021 Do you belong to any clubs o r organizations such as muslim groups, unions, fraternal or athletic groups, or [...] Answer Date Recorded PHQ-2 Score 0 08/25/2021 [facility] of Occupat ional Health - [...] on file Legal Sex Female 7:24 PM WORLD RENOWNED CHEF AND RESTAURANT OWNER Gender Identity Female 05/26/2019 10:17 PM WORLD RENOWNED CHEF AND RESTAURANT OWNER Sexual Orientation Straight 05/26/2019 10 :17 PM WORLD RENOWNED CHEF AND RESTAURANT OWNER Occupation Industry Job Start Date Job End [...] SCREEN HPV REFLEX Routine 05/28/2019 9:52 AM WORLD RENOWNED CHEF AND RESTAURANT OWNER General Medical Examination Adult from Last 3 Months or Most Recently Relevant to Health Maintenance Results * ThinPrep Screen HPV Reflex (05/28/2019 9:52 AM WORLD RENOWNED CHEF AND RESTAURANT OWNER) 06/03/2019 12:08 PM WORLD RENOWNED CHEF AND RESTAURANT OWNER [facility] Report electronically signed by JOEL Live(ASCP) I verify that I have examined all relevant slides/materials for the specimen(s) and rendered or confirmed the diagnosis. 06/03/2019 12:08 PM WORLD RENOWNED CHEF AND RESTAURANT OWNER [facility] Gross Description Received specimen in a ThinPrep vial. 06/03/2019 12:08 PM WORLD RENOWNED CHEF AND RESTAURANT OWNER [facility] Pap Test Source Cervical/Endocervi kate 06/03/2019 12:08 PM WORLD RENOWNED CHEF AND RESTAURANT OWNER [facility] Clinical History na 06/03/19 20 12:08 PM WORLD RENOWNED CHEF AND RESTAURANT OWNER [facility] Menstrual Status(LMP, PM, ) na 06/03/2019 12:08 PM WORLD RENOWNED CHEF AND RESTAURANT OWNER [facility] Hormone Therapy/Contracep tives na 06/03/2019 12:08 PM WORLD RENOWNED CHEF AND RESTAURANT OWNER [facility] Interpretation Cervical/Endocervi kate ??(ThinPrep): Satisfactory for Evaluation Negative for Intraepithelial Lesion or Malignancy 06/03/2019 12:08 PM WORLD RENOWNED CHEF AND RESTAURANT OWNER [facility] Varies (Cervix/Endocerv ix) 05/28/2019 9:52 AM WORLD RENOWNED CHEF AND RESTAURANT OWNER 05/28/2019 2:13 PM WORLD RENOWNED CHEF AND RESTAURANT OWNER us Veronica Erwin APRN.N.PIsabell, M.S.N. LAB PAP PATHDX ORDERABLES Final Result [facility] CYTOLOGY [address] [place] [address], [facility] Cytology [address] [place] [phone] from Last 3 Months or Most Recently Relevant to Health Maintenance Insurance [facility] Care Teams Buffer Nickel Relationship Specialty Start Date End Date Jennifer Dubose P.A.-C., P.A. [address] [place] [address] PCP - General 02/15/21
--- OUTSIDE RECORDS SUMMARY | 2024-02-24 19:58 | XMS_ITS | Encounter Summary ---
Author Organization [facility] Address [address] [place] [address] Care Team Providers Care Under Cutting Machine Operator Name Role Phone Jennifer Dubose P.A.-C., P.A. Primary Care Provid er Reason for Referral * Outpatient (Routine) - Authorized Specialty Diagnoses / Procedures Referred By Richard t Referred To Contact Family Medicine Jennifer Dubose P.A.-C., P.A. [address] [address] Phone: tel: fax: [facility] Region Referral ID Status Reason Start Date Expiration Date V isits Requested Visits Authorized [id number] Authorized 01/16/2024 07/17/2025 1 1 Encounter Details Date Type Department Care Team (Late st Contact Info) Description 01/16/2024 [facility] P.A.-C., P.A. [address] [address] Social History Tobacco Use Types [...] week 08/25/2021 How often do you attend [facility] or anglican services? Never 08/25/2021 Do you belong to any clubs o r organizations such as mandaeism groups, unions, fraternal or athletic groups, or [...] Answer Date Recorded PHQ-2 Score 0 08/25/2021 [facility] [place] of Occupat ional Health - Occupational Stress [...] place to sleep or slept in a group home (including now)? No 08/25/2021 Nutrition Answer Date [...] on file Legal Sex Female 7:24 PM SUPERVISOR ADULT EDUCATION Gender Identity Female 05/26/2019 10:17 PM SUPERVISOR ADULT EDUCATION Sexual Orientation Straight 05/26/2019 10 :17 PM SUPERVISOR ADULT EDUCATION Occupation Industry Job Start Date Job End [...] on filedocumented in this encounter Care Teams Under Cutting Machine Operator Relationship Specialty Start Date End Date Jennifer Dubose P.A.-C., P.A. [address] [phone] PCP - General 02/15/21 documented as of this encounter
--- OUTSIDE RECORDS SUMMARY | 2024-02-24 19:58 | XMS_ITS | Encounter Summary ---
Author Organization [place] Address [facility] [place] [address] Care Team Providers Care English As A Second Language Teacher Name Role Phone No Ref-Primary, Physician Primary Care Provider Reason for Visit * Auth/Cert (Routine) Specialty Diagnoses / Procedures Referred By Contpramod t Referred To Contact armored service technician Diagnoses labor M [facility] [address] [place] [address] Phone: tel: fax: Referral ID Status Reason Start Date Expiration Date Visits Re quested Visits Authorized [id number] 1 1 Encounter Details Date Type Department Care Team (Late st Contact Info) Description 02/19/2024 8:31 AM GROUP DIRECTOR Anesthesia Event [facility] [address] [place] [address] Donald Hernandez MD [facility] [id number] [facility] [address] [place], [place] [id number] Anesthesia Record Procedure Summary Procedure Name Responsible Anesthesiologist Anesthesia Start Time Anesthesia Stop Time LABOR ANALGESIA Donald Hernandez MD 02/19/24 0831 02/19 0627 Events Date Time Event Comment 02/19/2024 0831 An Start Anesthesia Star t is defined as when the anesthesia provider assumed care, began anesthesia prep, remained continuously present with the patient, and excludes all time for performing the pre-anesthesia evaluation. The Pre-Anesthesia Evaluation was completed before Anesthesia Start. 0831 AN FACE TIME IN 0849 An Facetime Out 0933 Quick Note Anesthesiologis t BILLY Monitoring Note. EHR/L&D RN communication of patient progress of labor. Anesthesiologist immediately available for management. 1944 Quick Note Anesthesiologis t BILLY Monitoring Note. EHR/L&D RN communication of patient progress of labor. Pain score shows acceptable epidural analgesia per vital signs flowsheet/nursing communication. Anesthesiologist immediately available for management. Dayo Lyman MD 02/20/2024 0627 An Stop Electronically signed by Domitila Meadows RN on February 20, 2024 6:30 AM Meds * Agents No agents on file. * Blood No blood administrations on file. Lines, Drains, and Airways Type Details Placement Removal Peripheral IV 02/19/24; 0415; 20 G ; Anterior, Right; Lower forearm; Other hospital 02/19/24 0415 by Tiny Balderas RN 02/21/24 0737 by Swapna Castano, KEITH Epidural 02/19/24; 0831; Physician; Epidural; L3-4; Colleen PARKER; Tip intact 02/19/24 0831 by Donald Hernandez MD 02/20/24 0737 by Colleen Ko, KEITH Urethral Catheter 02/19/24; 0935; No; Epidural/Intrathecal catheter 02/19/24 0935 by Angelina Aguayo RN 02/20/24 0617 by Domitila Meadows RN Peripheral IV 02/19/24; 1000; 20 G ; Left; Hand; Chlorhexidine; None; 2; Tolerated well 02/19/24 1000 by Angelina Aguayo RN 02/21/24 0803 by Swapna Castano, KEITH documented in this encounter Social History Tobacco Use Types Packs/Day Years Used Date Smoking Tobacco: Former Cigarettes Q uit: 2022 Vaping Device Smokeless Tobacco: Never Alcohol Use Standard Drinks/Week Comments Not Currently 0 (1 standard drink = 0.6 oz pur e alcohol) Food Insecurity Answer Date Recorded Within the [...] in an abandoned building, in an overnight snf, or couch-surfing.) Yes 02/20/2024 Are you worried [...] your partner or ex-partner? No 02/20/2024 Comments Yes Sex and Gender Information Value Date Recorded Sex Assigned at Not on file Legal Sex Female 4:08 AM GROUP DIRECTOR Gender Identity Not on file Sexual Orientation Not on file documented as of this encounter OR Notes * Anesthesia Procedure Notes - Donald Hernandez MD - 02/19/2024 9:32 AM GROUP DIRECTOR Associated Order(s): Epidural Block Epidural catheter Procedure Note Pre-Procedure Staff - Anesthesiologist: Donald Hernandez MD Performed By: anesthesiologist Procedure Documentation Procedure: epidural catheter Comments: Pre-Procedure Performed by Donald Hernandez MD Location: OB. PreAnesthestic Checklist: patient identified, IV checked, risks and benefits discussed, informed consent obtained, monitors and equipment checked, pre-op evaluation and at physician/surgeon's request. Timeout Correct Patient: Yes Correct Procedure: Epidural catheter placement Correct Site: Yes Correct Position: Yes Procedure Documentation Procedure: Epidural catheter block for Labor Patient currently in labor and she and OBMD request a labor epidural to control her labor pains. Patient was interviewed and examined. Procedure and risks including but not limited to bleeding, infection, nerve injury, paralysis, PDPH, and inadequate block requiring intervention discussed with patient. Questions answered. This epidural is to be placed in anticipation of vaginal delivery. She consents to the epidural procedure. Time-out was performed. I or my partners remain immediately available for management of any issues or complications and will monitor at appropriate intervals. Procedure: Patient sitting. Betadine prep x 3. Sterile drape applied. Lidocaine 1% local infiltration at L 3-4. 17 G. Tuohy needle at L3-4 by loss of resistance into epidural space. No CSF, paresthesia or blood. 1.5 % Lidocaine with 1:200,000 Epinephrine 5cc test dose.Then 0.25% bupivicaine 10 cc with NS 5 cc. Epidural catheter inserted w/o resistance to 5 cm in epidural space. Aspiration negative for blood and CSF. Negative for neuro change, paresthesia or symptoms of intravascular injection or intrathecal injection. Infusion orders written and infusion of 0.125% bupivicaine 15cc per hour started. Donald Hernandez MD FOR [facility] ([facility]) ONLY: Pain Team Contact information: please page the Pain Team Via [email or web address] Pain. During daytime hours, please page the attending first. At night please page the resident first. P DIRECTOR * Anesthesia Preprocedure Evaluation - Dnoald Hernandez MD - 02/19/2024 9:31 AM CST Anesthesia Pre-Procedure Evaluation Patient: Maureen Taveras : 1990 Procedure : Past Medical History: Diagnosis Date GDM, class A2 PCOS (polycystic ovarian syndrome) Past Surgical History: Procedure Laterality Date ARTHROSCOPIC RECONSTRUCTION ANTERIOR CRUCIATE LIGAMENT 2009 RAD RESEC TONSIL/PILLARS 2001 Allergies Allergen Reactions Insulin Isophane, Nph [Insulin Isophane] Hives and Rash Social History Tobacco Use Smoking status: Former Current packs/day: 0.00 Types: Cigarettes, Vaping Device Quit date: 2022 Years since quittin.8 Smokeless tobacco: Never Substance Use Topics Alcohol use: Not Currently Wt Readings from Last 1 Encounters: No data found for Wt Anesthesia Evaluation Pt has not had prior anesthetic ROS/MED HX ENT/Pulmonary: - neg pulmonary ROS Neurologic: - neg neurologic ROS Cardiovascular: - neg cardiovascular ROS METS/Exercise Tolerance: Hematologic: - neg hematologic ROS Musculoskeletal: GI/Hepatic: - neg GI/hepatic ROS Renal/Genitourinary: Endo: - neg endo ROS (+) type I DM, Psychiatric/Substance Use: - neg psychiatric ROS Infectious Disease: Malignancy: Other: Physical Exam Airway Mallampati: II TM distance: > 3 FB Neck ROM: full Mouth opening: > 3 cm Respiratory Devices and Support Dental no notable dental history Cardiovascular cardiovascular exam normal Pulmonary pulmonary exam normal OUTSIDE LABS: CBC: Lab Results Component Value Date HGB 11.1 (L) 02/19/2024 BMP: Lab Results Component Value Date GLC 143 (H) 02/19/2024 COAGS: No results found for: PTT, INR, FIBR POC: No results found for: BGM, HCG, HCGS HEPATIC: No results found for: ALBUMIN, PROTTOTAL, ALT, AST, GGT, ALKPHOS, BILITOTAL,BILIDIRECT, JENARO OTHER: No results found for: PH, LACT, A1C, ANJELICA, PHOS, MAG, LIPASE, AMYLASE, TSH,T4, T3, CRP, SED Anesthesia Plan ASA Status: 2 Anesthesia Type: Epidural. Consents Anesthesia Plan(s) and associated risks, benefits, and realistic alternatives discussed. Questions answered and patient/manufacturers service representative(s) expressed understanding. - Discussed: - Discussed with: Patient Postoperative Care Comments: neg OB ROS. Donald Hernandez MD I have reviewed the pertinent notes and labs in the chart from the past 30 days and (re)examined the patient. Any updates or changes from those notes are reflected in this note. # Drug Induced Platelet Defect: home medication list includes an antiplatelet medication P DIRECTOR documented in this encounter Plan of Treatment Not on file documented as of this encounter Procedures Procedure Name Priority Date/Time Associated Diagnosis Comments ANE EPIDURAL BLOCK Routine 02/19/2024 9: 32 AM GROUP DIRECTOR documented in this encounter Results * Epidural Block (02/19/2024 9:32 AM GROUP DIRECTOR) Narrative Donald Hernandez MD - 02/19/2024 9:32 AM GROUP DIRECTOR Donald Hernandez MD ? 02/19/2024 ??9:33 AM [...] per hour started. Donald Hernandez MD FOR [facility] ([facility]) ONLY: ?? Pain Team Contact information: please page the Pain Team Via [email or web address]. Search Pain. During daytime hours, please page the attending first. At night please page the resident first. us Donald Hernandez MD [place] ANESTHESIA Final Result documented in this encounter Visit Diagnoses Not on filedocumented in this encounter Care Teams English As A Second Language Teacher Relationship Specialty Start Date End Date No Ref-Primary, Physician PCP - General 02/19/24 documented as of this encounter
--- OUTSIDE RECORDS SUMMARY | 2024-02-24 19:58 | XMS_ITS | Encounter Summary ---
Author Organization [place] Address [facility] [place] [address] Care Team Providers Care Loan Closer Name Role Phone No Ref-Primary, Physician Primary Care Provider Reason for Visit * Reason Comments Rule Out Labor labor- 33.6 * Auth/Cert (Routine) Specialty Diagnoses / Procedures Referred By Contac t Referred To Contact fence repairman Diagnoses labor [facility] [address] [place] [address] Phone: tel: fax: Referral ID Status Reason Start Date Expiration Date Visits Re quested Visits Authorized [id number] 1 1 Encounter Details Date Type Department Care Team (Late st Contact Info) Description 02/19/2024 4:09 AM RECORDAK OPERATOR - 02/22/2024 11:00 AM RECORDAK OPERATOR Hospital Encounter [facility] [address] [place] [address] Nando Jesus MD [address] [place] [address] Mia Jesus MD [address] [place] [address] Tea Goldsmith MD [facility] [address] [place] [address] Premature delivery before 37 weeks, single or unspecified fetus (Primary Dx) Discharge Disposition: Home or Self Care Social History Tobacco Use Types Packs/Day Years Used Date Smoking Tobacco: Former Cigarettes Q uit: 2022 Vaping Device Smokeless Tobacco: Never Tobacco Cessation:Counseling Given: Not Answered Alcohol Use Standard Drinks/Week Comments Not Currently 0 (1 standard drink = 0.6 oz pur e alcohol) [place] Depression Scale Answer Date Recorded Last EPDS [...] in an abandoned building, in an overnight fpc, or couch-surfing.) Yes 02/20/2024 Are you worried [...] on file Legal Sex Female 4:08 AM RECORDAK OPERATOR Gender Identity Not on file Sexual Orientation Not on file documented as of this encounter Last Filed Vital Signs Vital Sign Reading Time Taken Comments Blood Pressure 130/74 02/22/2024 8:41 AM RECORDAK OPERATOR Pulse 78 02/22/2024 8:41 AM RECORDAK OPERATOR Temperature 36.9 ??C (98.4 ??F) 02/22/2024 8 :41 AM RECORDAK OPERATOR Respiratory Rate 16 02/22/2024 8:41 AM RECORDAK OPERATOR Oxygen Saturation 95% 02/20/2024 6:3 8 AM RECORDAK OPERATOR Inhaled Oxygen Concentration - - Weight 112 kg (247 lb) 02/19/2024 12:00 PM RECORDAK OPERATOR Clinic visit on 02/16/24 Height 172.7 cm (5' 8) 02/19/2024 12:0 0 PM RECORDAK OPERATOR Body Mass Index 37.56 02/19/2024 12:00 PM RECORDAK OPERATOR documented in this encounter Discharge Instructions * Discharge Instructions* Tonja Hartley RN - 02/22/2024 10:03 AM RECORDAK OPERATOR Images from the original note were not included. Care at Home With Your Baby: Care Instructions Overview After childbirth ( period), your body goes through many changes as you recover. In these weeks after delivery, try to take good care of yourself. Get rest whenever you can and accept help from others. It may take 4 to 6 weeks to feel like yourself again, and possibly longer if you had a . You may feel sore or very tired as you recover. After delivery, you may continue to have contractions as the uterus returns to the size it was before your . You will also have some vaginal bleeding. And you may have pain around the vagina as you heal. Several days after delivery you mayalso have pain and swelling in your breasts as they fill with milk. There are things you can do at home to help ease these discomforts. After childbirth, it's common to feel emotional. You may feel irritable, cry easily, and feel happyone minute and sad the next. This is called the baby blues. Hormone changes are one cause of these emotional changes. These feelings usually get better within a couple of weeks. If they don't, talkto your doctor or solar installation manager. In the first couple of weeks after you give , your doctor or solar installation manager may want to check in withyou and make a plan for follow-up care. You will likely have a complete visit in the first 3 months after delivery. At that time, your doctor or solar installation manager will check on your recovery and seehow you're doing. But if you have questions or concerns before then, you can always call your doctor or solar installation manager. Follow-up care is a duarte part of your treatment and safety. Be sure to make and go to all appointments, and call your doctor if you are having problems. It's also a good idea to know your test resultsand keep a list of the medicines you take. How can you care for yourself at home? Taking care of your body Use pads instead of tampons for bleeding. After , you will have bloody vaginal discharge. You may also pass some blood clots that shouldn't be bigger than an egg. Over the next 6 weeks or so, your bleeding should decrease a little every day and slowly change to a pinkish and then whitish discharge. For cramps or mild pain, try an algg-smw-kdifxmk pain medicine, such as acetaminophen (Tylenol) or ibuprofen (Advil, Motrin). Read and follow all instructions on the label. To ease pain around the vagina or from hemorrhoids: Put ice or a cold pack on the area for 10 to 20 minutes at a time. Put a thin cloth between the iceand your skin. Try sitting in a few inches of warm water (sitz bath) when you can or after bowel movements. Clean yourself with a gentle squeeze of warm water from a bottle instead of wiping with toilet paper. Use witch corrine or hemorrhoid pads (such as Tucks). Try using a cold compress for sore and swollen breasts. And wear a supportive bra that fits. Ease constipation by drinking plenty of fluids and eating high-fiber foods. Ask your doctor or solar installation manager about ogmr-tln-mfcsueg stool softeners. Activity Rest when you can. Ask for help from family or friends when you need it. If you can, have another adult in your home for at least 2 or 3 days after . When you feel ready, try to get some exercise every day. For many people, walking is a good choice.Don't do any heavy exercise until your doctor or solar installation manager says it's okay. Ask your doctor or solar installation manager when it is okay to have vaginal sex. If you don't want to get , talk to your doctor or solar installation manager about control options. You can get even before your period returns. Also, you can get while you are . Talk to your doctor or solar installation manager if you want to get again. They can talk to you about when it is safe. Emotional health It's normal to have some sadness, anxiety, and mood swings after delivery. It may help to talk witha trusted friend or family member. You can also call the Maternal Mental Health Hotline at 4-174[facility] ( ) for support. If these mood changes last more than a couple of weeks, talk toyour doctor or solar installation manager. When should you call for help? Share this information with your partner, family, or a friend. They can help you watch for warning signs. Call 911 anytime you think you may need emergency care. For example, call if: You feel you cannot stop from hurting yourself, your baby, or someone else. You passed out (lost consciousness). You have chest pain, are short of breath, or cough up blood. You have a seizure. Where to get help 24 hours a day, 7 days a week If you or someone you know talks about suicide, self-harm, a mental health crisis, a substance use crisis, or any other kind of emotional distress, get help right away. You can: Call the Suicide and Crisis Lifeline at 848. Call 0-621-793-TALK ( ). Text HOME to 499228 to access the Crisis Text Line. Consider saving these numbers in your phone. Go to [employer] for more information or to chat online. Call your doctor or solar installation manager now or seek immediate medical care if: You have signs of hemorrhage (too much bleeding), such as: Heavy vaginal bleeding. This means that you are soaking through one or more pads in an hour. Or youpass blood clots bigger than an egg. Feeling dizzy or lightheaded, or you feel like you may faint. Feeling so tired or weak that you cannot do your usual activities. A fast or irregular heartbeat. New or worse belly pain. You have signs of infection, such as: A fever. Increased pain, swelling, warmth, or redness from an incision or wound. Frequent or painful urination or blood in your urine. Vaginal discharge that smells bad. New or worse belly pain. You have symptoms of a blood clot in your leg (called a deep vein thrombosis), such as: Pain in the calf, back of the knee, thigh, or groin. Swelling in the leg or groin. A color change on the leg or groin. The skin may be reddish or purplish, depending on your usual skin color. You have signs of preeclampsia, such as: Sudden swelling of your face, hands, or feet. New vision problems (such as dimness, blurring, or seeing spots). A severe headache. You have signs of heart failure, such as: New or increased shortness of breath. New or worse swelling in your legs, ankles, or feet. Sudden weight gain, such as more than 2 to 3 pounds in a day or 5 pounds in a week. Feeling so tired or weak that you cannot do your usual activities. You had spinal or epidural pain relief and have: New or worse back pain. Increased pain, swelling, warmth, or redness at the injection site. Tingling, weakness, or numbness in your legs or groin. Watch closely for changes in your health, and be sure to contact your doctor or solar installation manager if: Your vaginal bleeding isn't decreasing. You feel sad, anxious, or hopeless for more than a few days. You are having problems with your breasts or . Where can you learn more? Go to https://www.At[employer].net/patiented Enter Z768 in the search box to learn more about Care at Home With Your Baby: Care Instructions. Current as of: October 24, 2022 Content Version: 14.2 ?? 2023 [employer]. Care instructions adapted under license by your healthcare professional. If you have questions about a medical condition or this instruction, always ask your healthcare professional. [employer] disclaims any warranty or liability for your use of this information. Please call and schedule 6 week visit. RDAK OPERATOR RDAK OPERATOR documented in this encounter Medications at Time of Discharge Ferrous Sulfate 324 (65 Fe) MG TBEC Take 325 mg by mouth every other day. Vit-Fe Fumarate-FA ( MULTIVITAMIN PLUS IRON) 27-1 MG TABS Take 1 tablet by mouth daily. documented as of this encounter Progress Notes * Siena Grande PA-C - 02/22/2024 7:32 AM CST [facility] Obstetrics Progress Note Subjective: This is the patient's second day since Vaginal delivery. She is doing well. She is ambulating and urinating on her own. Pain is well controlled with medication. Baby in NICU, pumping is going well. Lochia is within normal limits. Objective: All vitals stable No data found. Constitutional: healthy, alert, no distress. Abdomen: Abdomen soft, non-tender. BS normal. No masses, fundus is firm. JOINT/EXTREMITIES: extremities normal Last hemoglobin was Hemoglobin Date Value Ref Range Status 02/19/2024 11.1 (L) 11.7 - 15.7 g/dL Final ] Assessment: Stable course. Plan: Routine cares. Ambulation encouraged Pain control: ibuprofen and acetaminophen PRN Diet as tolerated Activity as tolerated Dispo: anticipate discharge home today, Rx for breast pump placed. Follows with primary MD in [place], recommend 6 week follow up. Siena Grande PA-C RDAK OPERATOR * Nando Jesus MD - 02/21/2024 10:33 PM CST PPD1 No c/o AFVSS Routine care in NICU Discharge tomorrow RDAK OPERATOR * Nurys Carbajal RN - 02/21/2024 10:07 AM CST [facility] nurse discussed family home visiting and other [facility] programs with patient. N provided [facility] intake line for her to call and get connected. RDAK OPERATOR * Tripp Conley MD - 02/20/2024 10:45 PM CST February 20, 2024 Paged by RN. Pt complaining of hemorrhoid pain, trying tucks, ice, ibuprofen, tylenol, topical hemorrhoid cream. Requesting something stronger (narcotic). Of note, pt not in the [facility] database, lateto care at [place], and had declined urine tox per RN. Will write of oxycodone 5 mg PO Q6 hours PRN severe pain. Will add senna- pericolace BID to prevent constipation, and Dermoplast spray for discomfort. TRIPP CONLEY MD RDAK OPERATOR * Mia Jesus MD - 02/19/2024 5:25 PM CST Pt is comfortable with epidural. BP 133/82 (BP Location: Left arm, Patient Position: Left side, Cuff Size: Adult Large) Temp 98.4 ??F (36.9 ??C) (Oral) Resp 18 Ht 1.727 m (5' 8) Wt 112 kg (247 lb) LMP 06/27/2023 SpO2 99% BMI 37.56 kg/m?? Harahan: q4 min FHT 150s, mod variability, +accels, no decels SVE 4/100/-3, BBOW BS 117, insulin at 6U/hr A/P: 33 year old @ 33w6d with PTL PTL: minimal change today despite regular contractions. Head is not well applied. We discussed options, which would include expectant management vs AROM/augmentation. She received her first BMZ this AM at 0200, will turn 34.0 tonight at midnight. BMZ has caused marked rise in BS and is requiring higher doses of insulin infusion. We discussed that the benefit to giving BMZ at 34 weeks is not clear, and the risk to giving a second dose of BMZ is worsening exacerbation of glucose management. I reviewed the case with Dr. Olivarez from MFM, who agrees it is reasonable to forego the second dose of BMZ as the patient will be 34 weeks tonight. There may be some benefit to managing labor expectantly to allow for first dose of BMZ to take effect. At this time, the patient and her family would like tomanage expectantly, understanding that there is high likelihood of progression of labor or SROM. Inthe case of either of these, we may consider augmenting labor. If intolerance to labor or non- reassuring status develops, would augment labor or proceed with delivery. A2GDM: Continue with insulin/D10W titration to achieve better control of BS, last BS improving BILLY in place, place SCDs FWB Category 1 Mia Jessu MD RDAK OPERATOR * Mia Jesus MD - 02/19/2024 9:07 AM CST Comfortable with recent epidural BP 107/74 Temp 98.6 ??F (37 ??C) (Oral) Resp 18 LMP 06/27/2023 SpO2 95% Harahan: q3 FHT: 140s, mod variability, no decels SVE 2.5/100/-2 BBOW A/P: 33 year old @ 33w6d with PTL, not responsive to nifedipine, s/p BMZx1, A2GDM - Will begin active labor diabetic order set, recheck BS in 1 hour, anticipate insulin needs due torecent BMZ - Expectant mgmt - PCN for unknown GBS - NICU consult Mia Jesus MD RDAK OPERATOR documented in this encounter H&P Notes * Nando Jesus MD - 02/19/2024 5:50 AM CST 33 yo presents by ambulance from [facility] att 33+6 weeks gestation for PTL The transferring physician, Dr.Deb Cortés, reported that she had originally presented with contractions and was managed with fluids, po nifedipine x 2 dose, and antibiotics for a possible UTI. When it became evident that her contractions were progressing and her cervix had made change from a closedcervix to 100%/1-2, decision was made to administer BMTZ x 1 and to start magnesium sulfate in prepa ration for transfer to a hospital with NICU capabilities. Amnisure was negative. Pertinent history: GDM A2 managed with Lantus 20u at --allergy to insulin isophane (NPH) Macrosomia with US on 02/08/24 showing EFW at 95% Anemia treated with po iron-most recent Hgb 10.7 at [place] GBS pending at [place] Review of Centricity Harahan q 2 minutes 150 with moderate variability, positive accels, no decels Physical exam AFVSS RN reports patient is visibly uncomfortable and is breathing through contractions Cx check per RN upon arrival to [facility]-100%/1-2/-2 Labs pending GBS pending at [place] Wet prep ordered Ferning test ordered A/P: labor at 33+6 weeks 1)Begin intrapartum management 2)GDM order set including insulin drip orders placed. Expect the BMTZ she received at 0200 will exacerbate her BG readings 3)GBS protocol with PCN while we await GBS results from [place] 4)If labor subsides, can proceed with BMTZ dose #2 on 02/20/24 at 0200 RDAK OPERATOR RDAK OPERATOR RDAK OPERATOR documented in this encounter Consult Notes * Analisa Sexton APRN AIR CONDITIONING INSULATION INSTALLER - 02/19/2024 2:45 PM CSTAssociated Order(s): ADVANCED PRACTICE PROVIDER IP CONSULT; ADVANCED PRACTICE PROVIDER IP CONSULT Neonatology Antepartum Counseling Consult I was asked to provide antepartum counseling for Maureen Tavears at the request of Mia Jesus MD secondary to labor. Ms. Taveras is currently 33 weeks , complicated by GDM and possibleLGA size. Betamethasone was administered on admission this morning, 02/18. Plan for the 2nd dose overnight tonight. Anticipate delivery with this hospitalization. Ms. Taveras, accompanied by FOB, was counseled on the expected hospital course, potential risks, andoutcomes associated with an infant born at approximately 33 weeks gestation. The counseling included: initial delivery room stabilization, respiratory course, methods of nutrition, growth and development, expected NICU therapies, expected length of stay, and ferry terminal supervisor outcomes. Please feel free to call with any additional questions or concerns. Analisa Sexton APRN CNP Advance Practice Provider Service Intensive Care Unit RDAK OPERATOR RDAK OPERATOR documented in this encounter Miscellaneous Notes * Plan of Care - Tonja Hartley RN - 02/22/2024 10:27 AM CST Goal Outcome Evaluation: Plan of Care Reviewed With: patient Overall Patient Progress: improvingOverall Patient Progress: improving Vitals stable. checks within normal limits. Ambulating independently. Voiding spontaneously. Pain controlled with tylenol and ibuprofen. Hemorrhoid cream, benzocaine spray, tucks, and ice packs used. Pumping every 3-4 hours and visiting baby in NICU. Hospital grade pump prescription given to patient at discharge. Spouse at bedside and attentive to patient. Discharge education complete with patient and spouse. Questions encouraged and all questions answered. Discharged to home with family. Problem: Adult Inpatient Plan of Care Goal: Plan of Care Review Outcome: Met Flowsheets (Taken 02/22/2024 1027) Plan of Care Reviewed With: patient Overall Patient Progress: improving Goal: Patient-Specific Goal (Individualized) Outcome: Met Goal: Absence of Hospital-Acquired Illness or Injury Outcome: Met Intervention: Prevent Skin Injury Recent Flowsheet Documentation Taken 02/22/2024 0841 by Tonja Hartley RN Body Position: position changed independently Intervention: Prevent Infection Recent Flowsheet Documentation Taken 02/22/2024 0841 by Tonja Hartley, RN Infection Prevention: single patient room provided rest/sleep promoted hand hygiene promoted Goal: Optimal Comfort and Wellbeing Outcome: Met Intervention: Monitor Pain and Promote Comfort Recent Flowsheet Documentation Taken 02/22/2024 0959 by Tonja Hartley, wedding day coordinator Interventions: medication (see MAR) Intervention: Provide Person-Centered Care Recent Flowsheet Documentation Taken 02/22/2024 0841 by Tonja Hartley, RN Trust Relationship/Rapport: care explained choices provided empathic listening provided emotional support provided questions answered questions encouraged reassurance provided thoughts/feelings acknowledged Goal: Readiness for Transition of Care Outcome: Met Flowsheets Taken 02/22/2024 1009 Anticipated Changes Related to Illness: none Concerns to be Addressed: all concerns addressed in this encounter Barriers to Discharge: None Taken 02/22/2024 1000 Concerns to be Addressed: all concerns addressed in this encounter Intervention: Mutually Develop Transition Plan Recent Flowsheet Documentation Taken 02/22/2024 1009 by Tonja Hartley, bark fitter Coordination/Progress: Done Anticipated Changes Related to Illness: none Concerns to be Addressed: all concerns addressed in this encounter Taken 02/22/2024 1000 by Tonja Hartley RN Transportation Concerns: none Concerns to be Addressed: all concerns addressed in this encounter Patient/Family Anticipated Services at Transition: none Patient/Family Anticipates Transition to: home with family home Equipment Currently Used at Home: none Problem: (Vaginal Delivery) Goal: Successful Parent Role Transition Outcome: Met Intervention: Support Parent Role Transition Recent Flowsheet Documentation Taken 02/22/2024 0841 by Tonja Hartley RN Supportive Measures: active listening utilized self-care encouraged Parent-Child Attachment Promotion: caring behavior modeled Goal: Hemostasis Outcome: Met Goal: Absence of Infection Signs and Symptoms Outcome: Met Goal: Anesthesia/Sedation Recovery Outcome: Met Goal: Optimal Pain Control and Function Outcome: Met Intervention: Prevent or Manage Pain Recent Flowsheet Documentation Taken 02/22/2024 0959 by Tonja Hartley wedding day coordinator Interventions: medication (see MAR) Goal: Effective Urinary Elimination Outcome: Met Intervention: Monitor and Manage Urinary Retention Recent Flowsheet Documentation Taken 02/22/2024 0841 by Tonja Hartley, RN Urinary Elimination Promotion: frequent voiding encouraged Problem: Diabetes in Goal: Optimal Coping Outcome: Met Intervention: Support Wellbeing and Self-Management Success Recent Flowsheet Documentation Taken 02/22/2024 0841 by Tonja Hartley, RN Supportive Measures: active listening utilized self-care encouraged Family/Support System Care: support provided self-care encouraged presence promoted involvement promoted Goal: Blood Glucose Level Within Targeted Range Outcome: Met RDAK OPERATOR * Plan of Care - Sintia Fierro RN - 02/22/2024 4:36 AM CST Pt VSS. checks WDL. Is bonding well with . Tolerating regular diet and able to ambulate independently. Urine output adequate, voids without difficulty. Pt utilizing tylenol and ibuprofen for pain management. Visiting NICU often. Problem: Adult Inpatient Plan of Care Goal: Plan of Care Review Description: The Plan of Care Review/Shift note should be completed every shift. The Outcome Evaluation is a brief statement about your assessment that the patient is improving, declining, or no change. This information will be displayed automatically on your shift note. Outcome: Progressing Flowsheets (Taken 02/22/2024 0436) Plan of Care Reviewed With: patient Overall Patient Progress: improving Goal: Patient-Specific Goal (Individualized) Description: You can add care plan individualizations to a care plan. Examples of Individualizationmight be: Parent requests to be called daily at 9am for status, I have a hard time hearing out of my right ear, or Do not touch me to wake me up as it startles me. Outcome: Progressing Goal: Absence of Hospital-Acquired Illness or Injury Outcome: Progressing Intervention: Prevent Skin Injury Recent Flowsheet Documentation Taken 02/21/20242319 by Sintia Fierro RN Body Position: position changed independently Goal: Optimal Comfort and Wellbeing Outcome: Progressing Intervention: Provide Person-Centered Care Recent Flowsheet Documentation Taken 02/21/20242319 by Sintia Fierro RN Trust Relationship/Rapport: care explained choices provided questions answered questions encouraged thoughts/feelings acknowledged Goal: Readiness for Transition of Care Outcome: Progressing Problem: (Vaginal Delivery) Goal: Successful Parent Role Transition Outcome: Progressing Goal: Hemostasis Outcome: Progressing Goal: Absence of Infection Signs and Symptoms Outcome: Progressing Goal: Anesthesia/Sedation Recovery Outcome: Progressing Goal: Optimal Pain Control and Function Outcome: Progressing Goal: Effective Urinary Elimination Outcome: Progressing Problem: Diabetes in Goal: Optimal Coping Outcome: Progressing Intervention: Support Wellbeing and Self-Management Success Recent Flowsheet Documentation Taken 02/21/20242319 by Sintia Fierro administrative services director/Support System Care: involvement promoted support provided Goal: Blood Glucose Level Within Targeted Range Outcome: Progressing RDAK OPERATOR * Plan of Care - Swapna Castano RN - 02/21/2024 6:09 PM CST Vital signs stable. Fundus is firm and midline, scant lochia. Voiding spontaneously. Ambulating independently, denies dizziness. Reports pain is well controlled with tylenol and ibuprofen. Utilizing tucks, hemorrhoid cream, benzocaine spray for hemorrhoids with relief. Utilizing breast pump. Visiting infant in NICU, speaks positively of baby. Problem: Adult Inpatient Plan of Care Goal: Plan of Care Review Description: The Plan of Care Review/Shift note should be completed every shift. The Outcome Evaluation is a brief statement about your assessment that the patient is improving, declining, or no change. This information will be displayed automatically on your shift note. 02/21/20241808 by Swapna Castano RN Outcome: Progressing Flowsheets (Taken 02/21/20241808) Plan of Care Reviewed With: patient Overall Patient Progress: improving 02/21/20241453 by Swapna Castano RN Outcome: Progressing Goal: Patient-Specific Goal (Individualized) Description: You can add care plan individualizations to a care plan. Examples of Individualizationmight be: Parent requests to be called daily at 9am for status, I have a hard time hearing out of my right ear, or Do not touch me to wake me up as it startles me. 02/21/20241808 by Swapna Castano RN Outcome: Progressing 02/21/20241453 by Swapna Castano RN Outcome: Progressing Goal: Absence of Hospital-Acquired Illness or Injury 02/21/20241808 by Swapna Castano RN Outcome: Progressing 02/21/20241453 by Swapna Castano RN Outcome: Progressing Intervention: Prevent Skin Injury Recent Flowsheet Documentation Taken 02/21/2024 154 by Swapna Castano RN Body Position: position changed independently Taken 02/21/2024 0731 by Swapna Castano RN Body Position: position changed independently Intervention: Prevent and Manage VTE (Venous Thromboembolism) Risk Recent Flowsheet Documentation Taken 02/21/2024 1541 by Swapna Castano RN VTE Prevention/Management: SCDs off (sequential compression devices) Taken 02/21/2024 0731 by Swapna Castano RN VTE Prevention/Management: SCDs off (sequential compression devices) Goal: Optimal Comfort and Wellbeing 02/21/2024 1809 by Swapna Castano RN Outcome: Progressing 02/21/2024 1454 by Swapna Castano RN Outcome: Progressing Intervention: Monitor Pain and Promote Comfort Recent Flowsheet Documentation Taken 02/21/2024 0848 by Swapna Castano RN Pain Management Interventions: medication (see MAR) Intervention: Provide Person-Centered Care Recent Flowsheet Documentation Taken 02/21/2024 1541 by Swapna Castano RN Trust Relationship/Rapport: care explained choices provided questions answered questions encouraged reassurance provided Taken 02/21/2024 0731 by Swapna Castano RN Trust Relationship/Rapport: care explained choices provided questions answered questions encouraged reassurance provided Goal: Readiness for Transition of Care 02/21/2024 1809 by Swapna Castano RN Outcome: Progressing 02/21/2024 1454 by Swapna Castano RN Outcome: Progressing Problem: (Vaginal Delivery) Goal: Successful Parent Role Transition 02/21/2024 1809 by Swapna Castano RN Outcome: Progressing 02/21/2024 1454 by Swapna Castano RN Outcome: Progressing Intervention: Support Parent Role Transition Recent Flowsheet Documentation Taken 02/21/2024 1541 by Swapna Castano RN Supportive Measures: active listening utilized decision-making supported goal-setting facilitated self-care encouraged Parent-Child Attachment Promotion: caring behavior modeled cue recognition promoted interaction encouraged parent/caregiver presence encouraged participation in care promoted positive reinforcement provided rooming-in promoted Taken 02/21/2024 0731 by Swapna Castano RN Supportive Measures: active listening utilized decision-making supported goal-setting facilitated self-care encouraged Parent-Child Attachment Promotion: caring behavior modeled cue recognition promoted interaction encouraged parent/caregiver presence encouraged participation in care promoted positive reinforcement provided rooming-in promoted Goal: Hemostasis 02/21/2024 1809 by Swapna Castano RN Outcome: Progressing 02/21/2024 1454 by Swapna Castano RN Outcome: Progressing Goal: Absence of Infection Signs and Symptoms 02/21/2024 1809 by Swapna Castano RN Outcome: Progressing 02/21/2024 1454 by Swapna Castano RN Outcome: Progressing Goal: Anesthesia/Sedation Recovery 02/21/2024 1809 by Swapna Castano RN Outcome: Progressing 02/21/2024 1454 by Swapna Castano RN Outcome: Progressing Goal: Optimal Pain Control and Function 02/21/2024 180 by Swapna Castano RN Outcome: Progressing 02/21/2024 1454 by Swapna Castano RN Outcome: Progressing Intervention: Prevent or Manage Pain Recent Flowsheet Documentation Taken 02/21/2024 0848 by Swapna Castano RN Pain Management Interventions: medication (see MAR) Goal: Effective Urinary Elimination 02/21/2024 180 by Swapna Castano RN Outcome: Progressing 02/21/2024 145 by Swapna Castano RN Outcome: Progressing Problem: Diabetes in Goal: Optimal Coping 02/21/2024 180 by Swapna Castano RN Outcome: Progressing 02/21/2024 145 by Swapna Castano RN Outcome: Progressing Intervention: Support Wellbeing and Self-Management Success Recent Flowsheet Documentation Taken 02/21/2024 1541 by Swapna Castano RN Supportive Measures: active listening utilized decision-making supported goal-setting facilitated self-care encouraged Family/Support System Care: involvement promoted support provided Taken 02/21/2024 0731 by Swapna Castano RN Supportive Measures: active listening utilized decision-making supported goal-setting facilitated self-care encouraged Family/Support System Care: involvement promoted support provided Goal: Blood Glucose Level Within Targeted Range 02/21/2024 1809 by Swapna Castano RN Outcome: Progressing 02/21/20241453 by Swapna Castano RN Outcome: Progressing Goal Outcome Evaluation: Plan of Care Reviewed With: patient Overall Patient Progress: improvingOverall Patient Progress: improving RDAK OPERATOR * Note - Antionette Espinoza RN - 02/21/2024 2:35 PM CST visit; Sheeba is Maureen's first baby- in NICU GA of 34.0 weeks. Maureen reports pumping q3-4 hours. Encouraged to pump q3 hours as able and discussed benefits of frequent pumps for hormone levels. Maureen also states she hasn't watched hand expression video yet but wanted singer songwriter to assist. Reviewed techniques- no drops noted. Education provided on benefits of hand expression and pumping after STS or when visiting Sheeba in NICU. Maureen reports has not gotten a breast pump through insurance yet- highly encouraged to use hospital grade rental d/t - pt plans to call insurance for coverage. Maureen mentions she received 2 wireless pumps at her baby shower- reviewed differences in stimulation and encouraged to use other pump as primary. Education provided on normal course of and when to expect milk transitioning- discussed when to switch to maintain mode. Reviewed importance of effective milk removal and discussed supportive diet as Maureen had diet questions regarding . All questions answered. RDAK OPERATOR * Plan of Care - Mena Heller RN - 02/21/2024 6:44 AM CST Vital signs stable. assessment WDL. Pain well controlled with tylenol, ibuprofen and oxycodone. Up ad/remberto. Voiding w/o difficulty. Tolerating a regular diet, fasting glucose this AM was 81. Pumping for in NICU. Questions/concerns addressed. NICU iPad in room. Problem: Adult Inpatient Plan of Care Goal: Plan of Care Review Description: The Plan of Care Review/Shift note should be completed every shift. The Outcome Evaluation is a brief statement about your assessment that the patient is improving, declining, or no change. This information will be displayed automatically on your shift note. Outcome: Progressing Flowsheets (Taken 02/21/2024 0644) Plan of Care Reviewed With: patient Overall Patient Progress: improving Goal: Absence of Hospital-Acquired Illness or Injury Outcome: Progressing Intervention: Prevent Skin Injury Recent Flowsheet Documentation Taken 02/21/2024 010 by Mena Heller RN Body Position: position changed independently Goal: Optimal Comfort and Wellbeing Outcome: Progressing Intervention: Provide Person-Centered Care Recent Flowsheet Documentation Taken 02/21/202499 by Mena Heller RN Trust Relationship/Rapport: care explained choices provided questions answered questions encouraged thoughts/feelings acknowledged Goal: Readiness for Transition of Care Outcome: Progressing Problem: (Vaginal Delivery) Goal: Successful Parent Role Transition Outcome: Progressing Goal: Hemostasis Outcome: Progressing Goal: Absence of Infection Signs and Symptoms Outcome: Progressing Goal: Anesthesia/Sedation Recovery Outcome: Progressing Goal: Optimal Pain Control and Function Outcome: Progressing Goal: Effective Urinary Elimination Outcome: Progressing Problem: Diabetes in Goal: Optimal Coping Outcome: Progressing Goal: Blood Glucose Level Within Targeted Range Outcome: Progressing Goal Outcome Evaluation: Plan of Care Reviewed With: patient Overall Patient Progress: improvingOverall Patient Progress: improving RDAK OPERATOR * Provider Notification - Mamta Infante RN - 02/20/2024 10:40 PM RECORDAK OPERATOR 02/20/242238 Provider Notification Provider Name/Title Dr. Conley Method of Notification Electronic Page Request Evaluate-Remote Notification Reason Medication Request;Status Update Dr. Conley notified regarding patient complaining of severe rectal pain related to her hemorrhoids. Patient is taking tylenol & ibuprofen & using tucks, cream, & ice without relief. Provider to place order for oxycodone. RDAK OPERATOR * Plan of Care - Mamta Infante RN - 02/20/2024 10:14 PM CST Goal Outcome Evaluation: VSS. Up independently. Tolerating regular diet. Pumping for in NICU. Ipad set up @ bedside & visiting frequently. Pain controlled with tylenol, ibuprofen, ice, & tucks. No support person present @ bedside. Denies preeclampsia symptoms. Fundus firm @ midline, lochia WDL. Voiding adequately. Plan of Care Reviewed With: patient Overall Patient Progress: improvingOverall Patient Progress: improving Problem: Adult Inpatient Plan of Care Goal: Plan of Care Review Description: The Plan of Care Review/Shift note should be completed every shift. The Outcome Evaluation is a brief statement about your assessment that the patient is improving, declining, or no change. This information will be displayed automatically on your shift note. 02/20/20242213 by Mamta Infante RN Outcome: Progressing Flowsheets (Taken 02/20/20242213) Plan of Care Reviewed With: patient Overall Patient Progress: improving 02/20/20242213 by Mamta Infante RN Outcome: Progressing Flowsheets (Taken 02/20/20242213) Plan of Care Reviewed With: patient Overall Patient Progress: improving Goal: Absence of Hospital-Acquired Illness or Injury Intervention: Prevent Skin Injury Recent Flowsheet Documentation Taken 02/20/20242043 by Mamta Infante RN Body Position: position changed independently Goal: Optimal Comfort and Wellbeing Intervention: Monitor Pain and Promote Comfort Recent Flowsheet Documentation Taken 02/20/20242050 by Mamta Infante RN Pain Management Interventions: medication (see MAR) cold applied sitz bath Intervention: Provide Person-Centered Care Recent Flowsheet Documentation Taken 02/20/20242043 by Mamta Infante RN Trust Relationship/Rapport: care explained choices provided emotional support provided empathic listening provided Problem: Labor Goal: Stable Wellbeing Intervention: Promote and Monitor Wellbeing Recent Flowsheet Documentation Taken 02/20/20242043 by Mamta Infante RN Body Position: position changed independently Problem: (Vaginal Delivery) Goal: Optimal Pain Control and Function Intervention: Prevent or Manage Pain Recent Flowsheet Documentation Taken 02/20/20242050 by Mamta Infante RN Pain Management Interventions: medication (see MAR) cold applied sitz bath Problem: Diabetes in Goal: Optimal Coping Intervention: Support Wellbeing and Self-Management Success Recent Flowsheet Documentation Taken 02/20/20242043 by Mamta Infante RN Family/Support System Care: caregiver stress acknowledged RDAK OPERATOR * Plan of Care - Tonja Hartley RN - 02/20/2024 5:56 PM CST Goal Outcome Evaluation: Plan of Care Reviewed With: patient Overall Patient Progress: improvingOverall Patient Progress: improving Vitals stable. checks within normal limits. Ambulating independently. Voiding spontaneously. Pain controlled with tylenol and ibuprofen. Benzocaine spray, tucks, hemorrhoid cream, and donut pillow used for hemorrhoids. Pumping every 3 hours, visiting baby in NICU. Spouse at bedside and attentive to mom visiting baby in NICU. Problem: Adult Inpatient Plan of Care Goal: Plan of Care Review Outcome: Progressing Flowsheets (Taken 02/20/2024 1756) Plan of Care Reviewed With: patient Overall Patient Progress: improving Goal: Patient-Specific Goal (Individualized) Outcome: Progressing Goal: Absence of Hospital-Acquired Illness or Injury Outcome: Progressing Intervention: Prevent Skin Injury Recent Flowsheet Documentation Taken 02/20/2024 0940 by Tonja Hartley RN Body Position: position changed independently Intervention: Prevent Infection Recent Flowsheet Documentation Taken 02/20/2024 0940 by Tonja Hartley RN Infection Prevention: single patient room provided rest/sleep promoted hand hygiene promoted Goal: Optimal Comfort and Wellbeing Outcome: Progressing Intervention: Monitor Pain and Promote Comfort Recent Flowsheet Documentation Taken 02/20/2024 1330 by Tonja Hartley, wedding day coordinator Interventions: medication (see MAR) Taken 02/20/2024 1029 by Tonja Hartley wedding day coordinator Interventions: medication (see MAR) Intervention: Provide Person-Centered Care Recent Flowsheet Documentation Taken 02/20/2024 0940 by Tonja Hartley RN Trust Relationship/Rapport: care explained choices provided emotional support provided empathic listening provided questions answered questions encouraged reassurance provided thoughts/feelings acknowledged Goal: Readiness for Transition of Care Outcome: Progressing Problem: (Vaginal Delivery) Goal: Successful Parent Role Transition Outcome: Progressing Intervention: Support Parent Role Transition Recent Flowsheet Documentation Taken 02/20/2024 0940 by Tonja Hartley RN Supportive Measures: active listening utilized self-care encouraged Parent-Child Attachment Promotion: caring behavior modeled positive reinforcement provided Goal: Hemostasis Outcome: Progressing Goal: Absence of Infection Signs and Symptoms Outcome: Progressing Goal: Anesthesia/Sedation Recovery Outcome: Progressing Goal: Optimal Pain Control and Function Outcome: Progressing Intervention: Prevent or Manage Pain Recent Flowsheet Documentation Taken 02/20/2024 1330 by Tonja Hartley wedding day coordinator Interventions: medication (see MAR) Taken 02/20/2024 1029 by Tonja Hartley, wedding day coordinator Interventions: medication (see MAR) Goal: Effective Urinary Elimination Outcome: Progressing Problem: Diabetes in Goal: Optimal Coping Outcome: Progressing Intervention: Support Wellbeing and Self-Management Success Recent Flowsheet Documentation Taken 02/20/2024 0940 by Tonja Hartley RN Supportive Measures: active listening utilized self-care encouraged Family/Support System Care: self-care encouraged support provided presence promoted involvement promoted Goal: Blood Glucose Level Within Targeted Range Outcome: Progressing RDAK OPERATOR * Provider Notification - Tonja Hartley RN - 02/20/2024 9:10 AM RECORDAK OPERATOR 02/20/24 0910 Provider Notification Provider Name/Title Dr Goldsmith Method of Notification Electronic Page Request Evaluate-Remote Notification Reason Other Provider notified due to a question regarding patient orders. Nurse clarifying the blood sugar orders. Patient was GDM insulin controlled and has an order for a fasting blood sugar PP day 1. Nurse asked if we should be checking more blood sugars due to being on insulin, or if the one fasting is enough. RDAK OPERATOR * Plan of Care - Colleen Ko RN - 02/20/2024 8:50 AM CST Data: Maureen Taveras transferred to [id number] via wheelchair at 0845. Baby transferred to NICU. Action: Receiving unit notified of transfer: Yes. Patient and family notified of room change. Report given to Tonja at 0850. Belongings sent to receiving unit. Accompanied by Registered Nurse. Oriented patient to surroundings. Call light within reach.g RN. Response: Patient tolerated transfer and is stable. RDAK OPERATOR * L&D Delivery Note - Mia Jesus MD - 02/20/2024 6:48 AM CST Delivery Note Diagnosis: Intrauterine at 34w0d, labor, A2 Gestational diabetes Procedure: Vaginal delivery Findings: Liveborn female , Apgars were 8 and at 1 and 5 minutes respectively. Infant weight:not recorded yet due to NICU resuscitation Anesthesia: epidural QBL: pending Maureen Taveras is a 33 year old female at 34w0d weeks gestation. Her was notable forlate presentation to care, established at [facility] at 20 weeks. She was diagnosed with gestational diabetes and required insulin, with increasing doses of glargine at bedtime . Ultrasound at 33 weeks showed EFW 95%. She presented at 33w6d with contractions and was found to be dilated to 1.5 cm. She received two doses of nifedipine for tocolysis without change in her contraction pattern. She was given a dose of betamethasone to accelerate lung maturity and started on magnesium sulfate, and she was transferred to [facility]. Upon arrival to [facility], she was continuing to contract regularly and painfully, and penicillin was initiated for unknown Group B Strep status. Non-stress test was reactive. She progressed to 3 cm and received an epidural.During this time, she was started on the active labor diabetes management order set, and required titration of IV insulin and D10W to manage her blood sugars. With this titration, her blood sugars were able to eventually be controlled to the goal range. Her labor progressed slowly, but she eventually reached 5/100%/-1, at which time amniotomy was performed with clear fluid. She subsequently labored spontaneously and progressed to complete dilation. She pushed over 2 contractions to deliver the head in the left occiput posterior presentation. The shoulders and body followed spontaneously without difficulty. The infant was placed on the patient's abdomen. Cord clamping was delayed by 1 minutes, at which time the cord was doubly clamped and cut and the baby was brought to the warmer where the NICU team was waiting. The third stage was actively managed with external uterine massage, gentle cord traction and pitocin. The placenta delivered spontaneously and intact. Perineum was intact. Excellent hemostasis was noted. All counts were correct before and after the delivery. Mia Jesus MD RDAK OPERATOR * Provider Notification - Domitila Meadows RN - 02/20/2024 6:15 AM RECORDAK OPERATOR 02/20/24 0615 Provider Notification Provider Name/Title Dr. Evaristo Jesus Method of Notification At Bedside Request Attend Delivery MD at bedside for delivery. SVE complete and +2. Patient is feeling pressure and will begin pushing. NICU team and singer songwriter RN to be called to bedside. RDAK OPERATOR RDAK OPERATOR * Provider Notification - Domitila Meadows RN - 02/20/2024 5:02 AM RECORDAK OPERATOR 02/20/24 0502 Provider Notification Provider Name/Title Dr. Evaristo Jesus Method of Notification Electronic Page Request Evaluate - Remote Notification Reason Variability Change Messaged MD asking to review FHR tracing. Baby has been tracing minimal without accels starting at 0430. Patient was repositioned with peanut ball, VS taken, and monitors adjusted. Abdomen is soft between cxs and patient is comfortable, denies pain. BS's have been within 90s-110s. Last two temperatures 99.1 and 99.7. Started a 500ml LR bolus at 0456. Per MD, check patient now. SVE is 9.5/100/0. MD will make way to hospital. RDAK OPERATOR * Provider Notification - Domitila Meadows RN - 02/20/2024 3:01 AM RECORDAK OPERATOR 02/20/24 0301 Provider Notification Provider Name/Title Dr. Evaristo Jesus Method of Notification Electronic Page Request Evaluate - Remote Notification Reason SVE Patient AROM for large amount of clear fluid at 0145. SVE one hour later is unchanged. Adjusting toco frequently throughout the night, but patient is cxing q1-4 minutes and palpating moderate. Per MD, orders to recheck cervix at 0530 or sooner if indicated. RDAK OPERATOR * Provider Notification - Domitila Meadows RN - 02/20/2024 1:43 AM RECORDAK OPERATOR 02/20/24 0143 Provider Notification Provider Name/Title Dr. Drummond Method of Notification At Bedside In house OB, Dr. Drummond, at bedside to AROM patient per Dr. Evaristo Jesus. SVE is still 5cm. AROM at 0145 for clear fluid. RDAK OPERATOR * Provider Notification - Domitila Meadows RN - 02/20/2024 1:30 AM RECORDAK OPERATOR 02/20/24 0130 Provider Notification Provider Name/Title Dr. Evaristo Jesus Method of Notification Electronic Page Request Evaluate - Remote Notification Reason SVE;Status Update Pt made change to 5/100/-1. Overall, reports she is comfortable with epidural and feeling a little bit more pressure in her lower abdomen. Per MD, will have in-house OB come to AROM patient and then recheck cervix one hour after. RDAK OPERATOR * Plan of Care - Domitila Meadows RN - 02/20/2024 12:33 AM CST Difficulty tracing FHR from 0020 to 0033 after patient repositioned to right side. RN staying at bedside continuously to adjust US monitor/belly bands. RDAK OPERATOR * Provider Notification - Domitila Meadows RN - 02/19/2024 11:30 PM RECORDAK OPERATOR 02/19/24 2330 Provider Notification Provider Name/Title Dr. Evaristo Jesus Method of Notification Electronic Page Request Evaluate - Remote Notification Reason SVE;Status Update SVE recheck at 2305 is unchanged from previous exam (4.5/100/-2). Can still feel bulging bag upon exam. Pt is still comfortable with epidural and cxing q 2-4 minutes. Green/yellow discharge with odornoted on patient's pad. Wet prep was sent early this morning and negative besides WBCs. FHR tracinghas returned with moderate variability and accels, no more prolonged decels. Per MD, recheck in 2 hours and update. RDAK OPERATOR * Provider Notification - Domitila Meadows RN - 02/19/2024 10:24 PM RECORDAK OPERATOR 02/19/24 2224 Provider Notification Provider Name/Title Dr. Evaristo Jesus Method of Notification Electronic Page Request Evaluate - Remote Notification Reason Decels Notified MD of prolonged decel occurring at 2203. Lasting 2.5 minutes with kevin of 125. Baseline returned to 145 by self, but helped patient to reposition to right side with peanut ball after. Per MD, if another prolonged decel occurs, will plan to keep labor progressing and AROM. RDAK OPERATOR * Provider Notification - Domitila Meadows RN - 02/19/2024 9:24 PM RECORDAK OPERATOR 02/19/242123 Provider Notification Provider Name/Title Dr. Evaristo Jesus Method of Notification Electronic Page Request Evaluate - Remote Notification Reason SVE;Status Update;Variability Change Updated MD that patient's 2099 cervical recheck is 4.5/100/-2. Currently reports she is comfortablewith epidural and no changes in pain/pressure. Cxs q 2-5 minutes and palpating moderate. Blood sugars from 7737-8675 were all below 110, and last check at 2114 was 119. Insulin drip titrated from 2 to 4units/hour. FHR tracing minimal variability with moderate beginning again after SVE and position change. Small variables noted between 1756-7979. Asking MD to review FHR tracing at home. Per MD, strip reviewed and reports is reassuring. No new orders at this time. Will transfer call from MD into room so she can talk about POC with patient/spouse/RN. Plan will be to recheck cervix again in 2 hours (0). If continuing to make change, in house MD can come to bedside to perform AROM. Patient is resting and comfortable at this time, and agrees with plan. RDAK OPERATOR * Provider Notification - Angelina Aguayo RN - 02/19/2024 4:57 PM RECORDAK OPERATOR 02/19/24 165 Provider Notification Provider Name/Title Dr. Evaristo Jesus Method of Notification At Bedside Request Evaluate in Person Notification Reason SVE SVE 4/100/-3. Confirmed cephalic by bedside US. MD discussed plan of care with patient and family, all questions answered. RN may recheck the patient next at 2100 unless patient reports changing pressure. Will discontinue order for second dose of Betamethasone as patient will be 34 weeks after midnight and Beta is no longer indicated. BG 117 at 1714, reviewed with MD as algorithm does not provide orders for how to proceed with insulin titration. MD states to increase insulin now to 7 units/hr as BG is still outside of goal range. SCDs ordered for patient due to prolonged immobility. RDAK OPERATOR * Provider Notification - Angelina Aguayo RN - 02/19/2024 4:29 PM RECORDAK OPERATOR 02/19/24 1629 Provider Notification Provider Name/Title Dr. Evaristo Jesus Method of Notification Phone Request Evaluate - Remote Notification Reason Other (Comment) (Blood glucose) MD updated regarding BG. Currently on algorithm 4. BG decreased from 131 mg/dL to 123 mg/dL in the past hour but did not have an adequate response of a 10 mg/dL decrease per the orders. RN requestingorders on how to manage insulin infusion as algorithm 4 is the highest available. Insulin is infusing at 6 units/hr. The algorithm does still call for D10W infusion at 50 mL/hr. MD states to continueinsulin infusion at 6 units/hour and check BG next one hour after previous check. MD is coming fromthe clinic now for next SVE. Patient has continued to contract regularly, every 4-5 minutes palpating mild to moderate. RDAK OPERATOR * Provider Notification - Angelina Aguayo RN - 02/19/2024 1:10 PM RECORDAK OPERATOR 02/19/24 1310 Provider Notification Provider Name/Title Dr. Evaristo Jesus Method of Notification Electronic Page MD states if patient remains stable she will come perform next SVE at about 1700. If there are any changes RN may perform next exam. Patient is continuing to contract every 4-5 minutes. Not reportingrectal pressure or changes in sensation. RDAK OPERATOR * Provider Notification - Angelina Aguayo RN - 02/19/2024 11:53 AM RECORDAK OPERATOR 02/19/24 1153 Provider Notification Provider Name/Title Dr. Evaristo Jesus Method of Notification At Bedside MD at bedside. SVE 3/100. Head ballotable. Membranes intact. MD will come perform next SVE in a couple of hours. RDAK OPERATOR * Provider Notification - Angelina Aguayo RN - 02/19/2024 11:07 AM RECORDAK OPERATOR 02/19/24 1107 Provider Notification Provider Name/Title Dr. Evaristo Jesus Method of Notification Electronic Page Request Evaluate - Remote Notification Reason SVE MD updated by jessica. SVE 3/100/-2 with bulging membranes. Patient is still resting comfortably with her epidural. Insulin infusion was required due to elevated blood sugars. MD states she will come recheck the patient around noon. RDAK OPERATOR * Provider Notification - Angelina Aguayo RN - 02/19/2024 9:01 AM RECORDAK OPERATOR 02/19/24 0901 Provider Notification Provider Name/Title Dr. Evaristo Jesus Method of Notification At Bedside MD at bedside to discuss plan of care. SVE 3/100/-2. Alba mucous discharge present on pad but membranes still intact. RN to recheck SVE in 2 hours. BG 143, MD states to start following active labor diabetes management orders. Will recheck BG in one hour and if still elevated will start IV insulin. Plan for RETAIL SUPPORT ASSOCIATE consult now that patient is comfortable. RDAK OPERATOR * Provider Notification - Angelina Aguayo RN - 02/19/2024 8:27 AM RECORDAK OPERATOR 02/19/24 0827 Provider Notification Provider Name/Title Dr. Hernandez Method of Notification At Bedside Request Evaluate in Person Notification Reason Pain MDA at bedside for epidural placement. RDAK OPERATOR * Provider Notification - Angelina Aguayo RN - 02/19/2024 7:53 AM RECORDAK OPERATOR 02/19/24 0753 Provider Notification Provider Name/Title Dr. Evaristo Jesus Method of Notification Phone Request Evaluate - Remote Notification Reason Status Update;SVE;Pain;Uterine Activity MD updated by text page and returned call. Patient was last checked about three hours ago. She is rating her pain 9/10 and has received two doses of IV fentanyl with minimal relief. Laurita regularly, every 2-3 minutes. SVE 2.5/100/-2. MD states patient may receive an epidural when requesting. Plan to check fasting BG this morning. Once patient is in active labor will follow q1 hour BG monitoring per active labor diabetes management orders. MD is on her way to the hospital. RDAK OPERATOR * Provider Notification - Alon Perez RN - 02/19/2024 5:15 AM RECORDAK OPERATOR 02/19/24 0502 Provider Notification Provider Name/Title MD Alberto Jesus Method of Notification Electronic Page Request Evaluate - Remote Notification Reason Status Update;SVE Updated provider on pt status via [employer]. Cervical check on arrival 1.5/100/-2, unchanged from her previous. Large amount of yellow/greenish thick mucous on the pad pt's wearing that had an odor. Pt ctx q 1.5-3 min, palpating mild, pt breathing through them and uncomfortable. Feeling them as uterine tightening and pressure. FHT present with minimal variability and accels present, no decels. Baseline 150. Maintenance magnesium running at 50ml. VSS and HTT normal with exception of some lower extremity edema. Records note wet prep was collected at [facility] that resulted negative, and positive FFN. Pt received two doses of PO 20 mg nifedipine and first dose of BMZ at 0256. Provider to place intrapartum orders along with diabetes management. Pain management discussed, MD herbert with IV fentanyl 100 mcg. Orders to collect wet prep and fern. RDAK OPERATOR * Provider Notification - Tiny Balderas, KEITH - 02/19/2024 4:26 AM RECORDAK OPERATOR 02/19/24 6316 Provider Notification Provider Name/Title Dr. Alberto Jesus Method of Notification Electronic Page MD aware of patient transfer from [facility] and has spoken to Dr. Talia Cortés re: patient history and admission. Notified MD of SVE upon arrival 1.5//-2. Informed MD that patient arrived on Magnesium sulfate maintenance infusion. Further report will be coming from primary RN. RDAK OPERATOR * Plan of Care - Alon Perez RN - 02/19/2024 4:15 AM CST Data: [facility]: 02/19/2024 4:09 AM. Reason for maternal/ assessment is uterine contractions. Patient reports ctx since 1900 last evening, q 1-3 min[facility] . record reviewed. has been complicated by gestational diabetes, insuline controlled, obesity, suspected macro, late PNC- started at 20w, anemia Gestational Age 33w6d. VSS. movement active. Patient denies leaking of vaginal fluid/rupture of membranes, vaginal bleeding, vomiting, headache, visual disturbances, epigastric or URQ pain, significant edema. Support person is present. Action: Verbal consent for EFM. Triage assessment completed. Bill of rights reviewed. Response: Patient verbalized agreement with plan. Will contact Dr Nando Jesus with update and for further orders. RDAK OPERATOR documented in this encounter Plan of Treatment Not on file documented as of this encounter Procedures Procedure Name Priority Date/Time Associated Diagnosis Comments GLUCOSE BY METER Routine 02/21/2024 6:39 AM RECORDAK OPERATOR GLUCOSE BY METER Routine 02/20/2024 7:26 AM RECORDAK OPERATOR GLUCOSE BY METER Routine 02/20/2024 5:32 AM RECORDAK OPERATOR GLUCOSE BY METER Routine 02/20/2024 4:29 AM RECORDAK OPERATOR GLUCOSE BY METER Routine 02/20/2024 3:25 AM RECORDAK OPERATOR GLUCOSE BY METER Routine 02/20/2024 2:21 AM RECORDAK OPERATOR GLUCOSE BY METER Routine 02/20/2024 1:26 AM RECORDAK OPERATOR GLUCOSE BY METER Routine 02/20/2024 12:1 7 AM RECORDAK OPERATOR GLUCOSE BY METER Routine 02/19/2024 11:1 9 PM RECORDAK OPERATOR GLUCOSE BY METER Routine 02/19/2024 10:1 0 PM RECORDAK OPERATOR GLUCOSE BY METER Routine 02/19/2024 9:12 PM RECORDAK OPERATOR GLUCOSE BY METER Routine 02/19/2024 8:17 PM RECORDAK OPERATOR GLUCOSE BY METER Routine 02/19/2024 7:20 PM RECORDAK OPERATOR GLUCOSE BY METER Routine 02/19/2024 6:11 PM RECORDAK OPERATOR GLUCOSE BY METER Routine 02/19/2024 5:14 PM RECORDAK OPERATOR GLUCOSE BY METER Routine 02/19/2024 4:16 PM RECORDAK OPERATOR GLUCOSE BY METER Routine 02/19/2024 3:11 PM RECORDAK OPERATOR GLUCOSE BY METER Routine 02/19/2024 2:13 PM RECORDAK OPERATOR GLUCOSE BY METER Routine 02/19/2024 2:09 PM RECORDAK OPERATOR GLUCOSE BY METER Routine 02/19/2024 1:08 PM RECORDAK OPERATOR GLUCOSE BY METER Routine 02/19/2024 12:0 6 PM RECORDAK OPERATOR GLUCOSE BY METER Routine 02/19/2024 10:3 9 AM RECORDAK OPERATOR GLUCOSE BY METER Routine 02/19/2024 10:0 5 AM RECORDAK OPERATOR GLUCOSE BY METER Routine 02/19/2024 8:53 AM RECORDAK OPERATOR TYPE AND SCREEN, ADULT STAT 02/19/2024 6:32 AM RECORDAK OPERATOR TREPONEMA ABS W REFLEX TO RPR AND TITER STAT 02/19/2024 6:32 AM RECORDAK OPERATOR HEMOGLOBIN STAT 02/19/2024 6:32 AM RECORDAK OPERATOR ABO/RH TYPE AND SCREEN STAT 02/19/2024 6:32 AM RECORDAK OPERATOR WET PREPARATION STAT 02/19/2024 5:45 AM RECORDAK OPERATOR FERN TEST FOR RUPTURE OF MEMBRANES Routine 02/19/2024 5:35 AM RECORDAK OPERATOR HEPATITIS B SURFACE ANTIGEN (EXTERNAL RESULT) Routine 11/14/2023 12:00 PM CDT HIV 1&2 ANTIBODY (EXTERNAL RESULT) Routine 11/14/2023 12:00 PM CDT documented in this encounter Results * Glucose by meter (02/21/2024 6:39 AM RECORDAK OPERATOR) GLUCOSE BY METER POCT 81 70 - 99 mg/dL 02/21/2024 6:45 AM RECORDAK OPERATOR LABORATORY POC Blood, Capillary BLOOD SPECIMEN / Unknown 02/21/2024 6:39 AM RECORDAK OPERATOR 02/21/2024 6:45 AM RECORDAK OPERATOR us Tea Goldsmith MD LAB - BEAKER POCT Final Result RH LABORATORY [facility] [address] [facility], no room number) [place] [address], [facility] * (ABNORMAL) Glucose by meter (02/20/2024 7:26 AM RECORDAK OPERATOR) GLUCOSE BY METER POCT 106(H) 70 - 99 mg/dL 02/20/2024 7:33 AM RECORDAK OPERATOR RH LABORATORY POC Blood, Capillary BLOOD SPECIMEN / Unknown 02/20/2024 7:26 AM RECORDAK OPERATOR 02/20/2024 7:33 AM RECORDAK OPERATOR Mia GREENWOOD - STUART POCT Final Result LABORATORY [facility] [address] Lab (1st floor, no room number) [address] * Glucose by meter (02/20/2024 5:32 AM RECORDAK OPERATOR) GLUCOSE BY METER POCT 96 70 - 99 mg/dL 02/20/2024 5:39 AM RECORDAK OPERATOR LABORATORY POC Blood, Capillary BLOOD SPECIMEN / Unknown 02/20/2024 5:32 AM RECORDAK OPERATOR 02/20/2024 5:39 AM RECORDAK OPERATOR Mia GREENWODO - STUART POCT Final Result Performing Organization Address City/[facility]/ZIP Co de Phone Number LABORATORY [facility] [address] Lab (1st floor, no room number) [address] * Glucose by meter (02/20/2024 4:29 AM RECORDAK OPERATOR) GLUCOSE BY METER POCT 97 70 - 99 mg/dL 02/20/2024 4:36 AM RECORDAK OPERATOR LABORATORY POC Blood, Capillary BLOOD SPECIMEN / Unknown 02/20/2024 4:29 AM RECORDAK OPERATOR 02/20/2024 4:36 AM RECORDAK OPERATOR Mia DAVIDSON POCT Final Result LABORATORY [facility] [address] Lab (1st floor, no room number) [address] * (ABNORMAL) Glucose by meter (02/20/2024 3:25 AM RECORDAK OPERATOR) GLUCOSE BY METER POCT 111(H) 70 - 99 mg/dL 02/20/2024 3:31 AM RECORDAK OPERATOR RH LABORATORY POC Blood, Capillary BLOOD SPECIMEN / Unknown 02/20/2024 3:25 AM RECORDAK OPERATOR 02/20/2024 3:31 AM RECORDAK OPERATOR Mia Jesus MD LAB - BEAKER POCT Final Result LABORATORY [facility] [address] Lab (1st floor, no room number) [place] [phone], [facility] * (ABNORMAL) Glucose by meter (02/20/2024 2:21 AM RECORDAK OPERATOR) GLUCOSE BY METER POCT 104(H) 70 - 99 mg/dL 02/20/2024 2:28 AM RECORDAK OPERATOR LABORATORY POC Blood, Capillary BLOOD SPECIMEN / Unknown 02/20/2024 2:21 AM RECORDAK OPERATOR 02/20/2024 2:28 AM RECORDAK OPERATOR Mia Jesus MD LAB - BEAKER POCT Final Result Performing Organization Address City/[facility]/ZIP Co de Phone Number LABORATORY [facility] [address] Lab (1st floor, no room number) [place] [address], [facility] * Glucose by meter (02/20/2024 1:26 AM RECORDAK OPERATOR) GLUCOSE BY METER POCT 97 70 - 99 mg/dL 02/20/2024 1:33 AM RECORDAK OPERATOR LABORATORY POC Blood, Capillary BLOOD SPECIMEN / Unknown 02/20/2024 1:26 AM RECORDAK OPERATOR 02/20/2024 1:33 AM RECORDAK OPERATOR Mia Jesus MD LAB - BEAKER POCT Final Result LABORATORY [facility] [address] Lab (1st floor, no room number) [place] [address], [facility] * (ABNORMAL) Glucose by meter (02/20/2024 12:17 AM RECORDAK OPERATOR) GLUCOSE BY METER POCT 101(H) 70 - 99 mg/dL 02/20/2024 12:24 AM RECORDAK OPERATOR RH LABORATORY POC Blood, Capillary BLOOD SPECIMEN / Unknown 02/20/2024 12:17 AM RECORDAK OPERATOR 02/20/2024 12:24 AM RECORDAK OPERATOR Mia Jesus MD LAB - BEAKER POCT Final Result LABORATORY [facility] [address] Lab (1st floor, no room number) [address] * Glucose by meter (02/19/2024 11:19 PM RECORDAK OPERATOR) GLUCOSE BY METER POCT 96 70 - 99 mg/dL 02/19/2024 11:26 PM RECORDAK OPERATOR RH LABORATORY POC Blood, Capillary BLOOD SPECIMEN / Unknown 02/19/2024 11:19 PM RECORDAK OPERATOR 02/19/2024 11:26 PM RECORDAK OPERATOR Mia GREENWOOD - BEAKER POCT Final Result Performing Organization Address City/[facility]/ZIP Co de Phone Number LABORATORY [facility] [address] Lab (1st floor, no room number) [address] * (ABNORMAL) Glucose by meter (02/19/2024 10:10 PM RECORDAK OPERATOR) GLUCOSE BY METER POCT 114(H) 70 - 99 mg/dL 02/19/2024 11:24 PM RECORDAK OPERATOR RH LABORATORY POC Blood, Capillary BLOOD SPECIMEN / Unknown 02/19/2024 10:10 PM RECORDAK OPERATOR 02/19/2024 11:24 PM RECORDAK OPERATOR Mia Jesus MD LAB - BEAKER POCT Final Result LABORATORY [facility] [address] Lab (1st floor, no room number) [address] * (ABNORMAL) Glucose by meter (02/19/2024 9:12 PM RECORDAK OPERATOR) GLUCOSE BY METER POCT 119(H) 70 - 99 mg/dL 02/19/2024 9:19 PM RECORDAK OPERATOR RH LABORATORY POC Blood, Capillary BLOOD SPECIMEN / Unknown 02/19/2024 9:12 PM RECORDAK OPERATOR 02/19/2024 9:19 PM RECORDAK OPERATOR Mia Jesus MD LAB - BEAKER POCT Final Result LABORATORY [facility] [address] Lab (1st floor, no room number) [address] * (ABNORMAL) Glucose by meter (02/19/2024 8:17 PM RECORDAK OPERATOR) GLUCOSE BY METER POCT 109(H) 70 - 99 mg/dL 02/19/2024 8:23 PM RECORDAK OPERATOR RH LABORATORY POC Blood, Capillary BLOOD SPECIMEN / Unknown 02/19/2024 8:17 PM RECORDAK OPERATOR 02/19/2024 8:23 PM RECORDAK OPERATOR Mia GREENWOOD - BELANA POCT Final Result LABORATORY [facility] [address] Lab (1st floor, no room number) [address] * (ABNORMAL) Glucose by meter (02/19/2024 7:20 PM RECORDAK OPERATOR) GLUCOSE BY METER POCT 103(H) 70 - 99 mg/dL 02/19/2024 7:26 PM RECORDAK OPERATOR RH LABORATORY POC Blood, Capillary BLOOD SPECIMEN / Unknown 02/19/2024 7:20 PM RECORDAK OPERATOR 02/19/2024 7:26 PM RECORDAK OPERATOR Mia GREENWOOD - BEAKER POCT Final Result Performing Organization Address [facility]/ZIP Co de Phone Number LABORATORY [facility] [address] Lab (1st floor, no room number) [place] [phone] [place] [address] * (ABNORMAL) Glucose by meter (02/19/2024 6:11 PM RECORDAK OPERATOR) GLUCOSE BY METER POCT 106(H) 70 - 99 mg/dL 02/19/2024 6:19 PM RECORDAK OPERATOR RH LABORATORY POC Blood, Capillary BLOOD SPECIMEN / Unknown 02/19/2024 6:11 PM RECORDAK OPERATOR 02/19/2024 6:19 PM RECORDAK OPERATOR Mia Jesus MD LAB - BEAKER POCT Final Result Performing Organization Address [facility] Co de Phone Number LABORATORY [facility] [address] Lab (1st floor, no room number) [place] [phone] [place] [address] * (ABNORMAL) Glucose by meter (02/19/2024 5:14 PM RECORDAK OPERATOR) GLUCOSE BY METER POCT 117(H) 70 - 99 mg/dL 02/19/2024 5:20 PM RECORDAK OPERATOR LABORATORY POC Blood, Capillary BLOOD SPECIMEN / Unknown 02/19/2024 5:14 PM RECORDAK OPERATOR 02/19/2024 5:20 PM RECORDAK OPERATOR Mia Jesus MD LAB - BEAKER POCT Final Result Performing Organization Address City/[facility]/ZIP Co de Phone Number LABORATORY [facility] [address] Lab (1st floor, no room number) [place] [phone] * (ABNORMAL) Glucose by meter (02/19/2024 4:16 PM RECORDAK OPERATOR) GLUCOSE BY METER POCT 123(H) 70 - 99 mg/dL 02/19/2024 4:23 PM RECORDAK OPERATOR RH LABORATORY POC Blood, Capillary BLOOD SPECIMEN / Unknown 02/19/2024 4:16 PM RECORDAK OPERATOR 02/19/2024 4:23 PM RECORDAK OPERATOR Mia Jesus MD LAB - BEAKER POCT Final Result LABORATORY [facility] [address] Lab (1st floor, no room number) [address] * (ABNORMAL) Glucose by meter (02/19/2024 3:11 PM RECORDAK OPERATOR) GLUCOSE BY METER POCT 131(H) 70 - 99 mg/dL 02/19/2024 3:18 PM RECORDAK OPERATOR RH LABORATORY POC Blood, Capillary BLOOD SPECIMEN / Unknown 02/19/2024 3:11 PM RECORDAK OPERATOR 02/19/2024 3:18 PM RECORDAK OPERATOR Mia Jesus MD LAB - BEAKER POCT Final Result Performing Organization Address [facility]/ZIP Co de Phone Number LABORATORY [facility] [address] Lab (1st floor, no room number) [place] [phone] [place] [address] * (ABNORMAL) Glucose by meter (02/19/2024 2:13 PM RECORDAK OPERATOR) GLUCOSE BY METER POCT 121(H) 70 - 99 mg/dL 02/19/2024 2:19 PM RECORDAK OPERATOR RH LABORATORY POC Blood, Capillary BLOOD SPECIMEN / Unknown 02/19/2024 2:13 PM RECORDAK OPERATOR 02/19/2024 2:19 PM RECORDAK OPERATOR Mia Jesus MD LAB - BEAKER POCT Final Result LABORATORY [facility] [address] Lab (1st floor, no room number) [address] * (ABNORMAL) Glucose by meter (02/19/2024 2:09 PM RECORDAK OPERATOR) GLUCOSE BY METER POCT 137(H) 70 - 99 mg/dL 02/19/2024 2:26 PM RECORDAK OPERATOR RH LABORATORY POC Blood, Capillary BLOOD SPECIMEN / Unknown 02/19/2024 2:09 PM RECORDAK OPERATOR 02/19/2024 2:26 PM RECORDAK OPERATOR Mia Jesus MD LAB - BEL[place] POCT Final Result LABORATORY [facility] [address] Lab (1st floor, no room number) [place] [address], [facility] * (ABNORMAL) Glucose by meter (02/19/2024 1:08 PM RECORDAK OPERATOR) GLUCOSE BY METER POCT 137(H) 70 - 99 mg/dL 02/19/2024 1:15 PM RECORDAK OPERATOR LABORATORY POC Blood, Capillary BLOOD SPECIMEN / Unknown 02/19/2024 1:08 PM RECORDAK OPERATOR 02/19/2024 1:15 PM RECORDAK OPERATOR Mia GREENWOOD - STUART POCT Final Result LABORATORY [facility] [address] Lab (1st floor, no room number) [place] [address], [facility] * (ABNORMAL) Glucose by meter (02/19/2024 12:06 PM RECORDAK OPERATOR) GLUCOSE BY METER POCT 137(H) 70 - 99 mg/dL 02/19/2024 12:14 PM RECORDAK OPERATOR LABORATORY POC Blood, Capillary BLOOD SPECIMEN / Unknown 02/19/2024 12:06 PM RECORDAK OPERATOR 02/19/2024 12:14 PM RECORDAK OPERATOR Mia GREENWOOD - STUART POCT Final Result LABORATORY [facility] [address] Lab (1st floor, no room number) [place] [address], [facility] * (ABNORMAL) Glucose by meter (02/19/2024 10:39 AM RECORDAK OPERATOR) GLUCOSE BY METER POCT 126(H) 70 - 99 mg/dL 02/19/2024 10:46 AM RECORDAK OPERATOR RH LABORATORY POC Blood, Capillary BLOOD SPECIMEN / Unknown 02/19/2024 10:39 AM RECORDAK OPERATOR 02/19/2024 10:46 AM RECORDAK OPERATOR Mia Jesus MD LAB - BEAKER POCT Final Result LABORATORY [facility] [address] Lab (1st floor, no room number) [place] [phone] [place] [address] * (ABNORMAL) Glucose by meter (02/19/2024 10:05 AM RECORDAK OPERATOR) GLUCOSE BY METER POCT 128(H) 70 - 99 mg/dL 02/19/2024 10:12 AM RECORDAK OPERATOR LABORATORY POC Blood, Capillary BLOOD SPECIMEN / Unknown 02/19/2024 10:05 AM RECORDAK OPERATOR 02/19/2024 10:12 AM RECORDAK OPERATOR Mia Jesus MD LAB - BEAKER POCT Final Result LABORATORY [facility] [address] Lab (1st floor, no room number) [place] [phone], [facility] * (ABNORMAL) Glucose by meter (02/19/2024 8:53 AM RECORDAK OPERATOR) GLUCOSE BY METER POCT 143(H) 70 - 99 mg/dL 02/19/2024 9:00 AM RECORDAK OPERATOR LABORATORY POC Blood, Capillary BLOOD SPECIMEN / Unknown 02/19/2024 8:53 AM RECORDAK OPERATOR 02/19/2024 9:00 AM RECORDAK OPERATOR Mia Jesus MD LAB - BEAKER POCT Final Result LABORATORY [facility] [address] Lab (1st floor, no room number) [place] [phone], [facility] * Adult Type and Screen (02/19/2024 6:32 AM RECORDAK OPERATOR) ABO/RH(D) A POS 02/19/2024 5:24 AM RECORDAK OPERATOR RH BLOOD BANK Antibody Screen Negative Negative 02/19/2024 5:24 AM RECORDAK OPERATOR RH BLOOD BANK SPECIMEN EXPIRATION DATE [id number] 02/19/2024 5:24 AM RECORDAK OPERATOR RH BLOOD BANK Blood STRUCTURE OF LEFT HAND / Unknown Venipuncture / Unknown 02/19/2024 6:32 AM RECORDAK OPERATOR 02/19/2024 6:37 AM RECORDAK OPERATOR Nando Jesus MD LAB - BLOOD BANK TEST ORDER Melania l Result BLOOD BANK [address] [place] [address] * Treponema Abs w Reflex to RPR and Titer (02/19/2024 6:32 AM RECORDAK OPERATOR) Treponema Antibody Total Nonreactive Nonreactive 02/19/2024 1:02 PM RECORDAK OPERATOR [facility] CORE/PROT/EN DO Blood STRUCTURE OF LEFT HAND / Unknown Venipuncture / Unknown 02/19/2024 6:32 AM RECORDAK OPERATOR 02/19/2024 6:37 AM RECORDAK OPERATOR Nando Jesus MD LAB - BLOOD ORDERABLES Final Res ult [facility] SPECIALTY CORE/PROT/ENDO [facility] Specialty Core/Prot/Endo [address] [facility], Room [address] [place] [address] * (ABNORMAL) Hemoglobin (02/19/2024 6:32 AM RECORDAK OPERATOR) Hemoglobin 11.1(L) 11.7 - 15.7 g/dL 02/19/2024 6:39 AM RECORDAK OPERATOR RH LABORATORY Blood STRUCTURE OF LEFT HAND / Unknown Venipuncture / Unknown 02/19/2024 6:32 AM RECORDAK OPERATOR 02/19/2024 6:37 AM RECORDAK OPERATOR us Nando Jesus MD LAB - BLOOD ORDERABLES Final Res ult [facility] [address] Lab (1st floor, no room number) [address] * (ABNORMAL) Wet preparation (02/19/2024 5:45 AM RECORDAK OPERATOR) Trichomonas Absent Absent HEMA 02/19/2024 6:21 AM RECORDAK OPERATOR LABORATORY Yeast Absent Absent HEMA 02/19/2024 6:21 AM RECORDAK OPERATOR RH LABORATORY Clue Cells Absent Absent HEMA 02/19/2024 6:21 AM RECORDAK OPERATOR RH LABORATORY WBCs/high power field 2+(A) None HEMA 02/19/2024 6:21 AM RECORDAK OPERATOR LABORATORY Swab VAGINAL STRUCTURE / Unknown Non-blood Collection / Unknown 02/19/2024 5:45 AM RECORDAK OPERATOR 02/19/2024 6:00 AM RECORDAK OPERATOR Nando Jesus MD LAB - MICRO GENERAL ORDERABLES F inal Result Performing Organization Address [facility]/ZIP Co de Phone Number [facility] [address] Lab (1st floor, no room number) [address] * Fern Test for Rupture of Membranes (02/19/2024 5:35 AM RECORDAK OPERATOR) Fern Crystallization No ferning present No ferning present HEMA 02/19/2024 6:20 AM RECORDAK OPERATOR LABORATORY Cervical fluid VAGINAL STRUCTURE / Unknown Non-blood Collection / Unknown 02/19/2024 5:35 AM RECORDAK OPERATOR 02/19/2024 6:00 AM RECORDAK OPERATOR Nando Jesus MD LAB - BODY FLUIDS ORDERABLES Fin al Result Performing Organization Address City/[facility]/ZIP Co de Phone Number [facility] [address] Lab (1st floor, no room number) [address] * HIV-1 Antibody (External Result) (11/14/2023 12:00 PM CDT) HIV 1&2 Antibody (External) Negative Nonreactive EXTERNAL LAB 11/14/2023 12:0 0 PM CDT us Patient Reported LAB - HIM EXTERNAL RESULT Final Result EXTERNAL LAB External Lab * Hepatitis B Surface Antigen (External Result) (11/14/2023 12:00 PM CDT) Hepatitis B Surface Antigen (External) Negative Nonreactive EXTERNAL LAB 11/14/2023 12:0 0 PM CDT us Patient Reported LAB - HIM EXTERNAL RESULT Final Result Performing Organization Address City/[facility]/ZIP Co de Phone Number EXTERNAL LAB External Lab documented in this encounter Visit Diagnoses Diagnosis Premature delivery before 37 weeks, single or unspecified fetus- Primary labor Early onset of delivery, unspecified as to episode of care documented in this encounter Administered Medications Inactive Administered Medications - up to 3 most recent administrations Medication Order MAR Action Action Date Dose Rate Site acetaminophen (TYLENOL) tablet 650 mg 650 mg, Oral, EVERY 4 HOURS PRN, mild pain, fever, greater than or equal to 38 C /100.4 F (oral) or 38.5 C/ 101.4 F (core)., Starting on Mon02/20/24 at 0644, Maximum acetaminophen dose from all sources = 75 mg/kg/day not to exceed 4 grams/day., $Given 02/22/2024 9:59 AM RECORDAK OPERATOR 650 mg $Given 02/22/2024 6:05 AM RECORDAK OPERATOR 650 mg $Given 02/21/2024 11:06 PM RECORDAK OPERATOR 650 mg benzocaine (AMERICAINE) 20 % topical spray Topical, 4 TIMES DAILY PRN, perineal pain, Starting on Mon02/20/24 at 0644, $Given 02/20/2024 2:57 PM RECORDAK OPERATOR benzocaine (AMERICAINE) 20 % topical spray Topical, EVERY 6 HOURS PRN, hemorrhoid pain, Starting on Mon02/20/24 at 2245 $Given 02/21/2024 3:45 PM RECORDAK OPERATOR carboprost (HEMABATE) injection 250 mcg 250 mcg, Intramuscular, EVERY 15 MIN PRN, other, ONLY for uterine atony with significant bleeding POST-DELIVERY, Starting on Mon02/20/24 at 0644, Notify provider IF uterine atony and clarify with provider medication preference. Administer only if directed by provider. Give with caution in patients with asthma, active pulmonary, hepatic, renal or cardiovascular disease., dextrose 10% infusion at 0-100 mL/hr, Intravenous, CONTINUOUS PRN, Set current rate per OB DIAB INSULIN Infusion in Labor algorithm. Discontinue when discontinuing insulin drip., Starting on Mon02/19/24 at 0529, Until Mon02/20/24 at 0646 $New Bag 02/20/2024 4:50 AM RECORDAK OPERATOR 50 mL /hr $New Bag 02/19/2024 10:46 AM RECORDAK OPERATOR 50 mL/hr dextrose 50 % injection 25-50 mL 25-50 mL, Intravenous, EVERY 15 MIN PRN, low blood sugar, Administer over 1-5 Minutes, Starting on Mon02/20/24 at 0644, Use if have IV access, BG less than 70 mg/dL and meet dose criteria below: Dose if conscious and alert (or disorientated) and NPO = 25 mL Dose if unconscious / not alert = 50 mL Give first dose for initial blood glucose less than 70 mg/dL. If blood glucose at 15 minute recheck is less than or equal to 80 mg/dL continue to administer carbohydrate treatment every 15 minutes, as needed, based on blood glucose and assessment parameters until blood glucose level is above 80 mg/dL x 2 consecutive 15 minute checks., docusate sodium (COLACE) capsule 100 mg 100 mg, Oral, DAILY, First dose on Mon02/20/24 at 0900, Hold for loose stools., $Given 02/20/2024 10:29 AM RECORDAK OPERATOR 100 mg fentaNYL (PF) (SUBLIMAZE) injection 100 mcg 100 mcg, Intravenous, EVERY 1 HOUR PRN, other, desired pain relief based on labor coping, Starting on Mon02/19/24 at 0522, Hold dose for analgesic side effects. Notify provider to assess for uncontrolled pain or analgesic side effects. If maximum total dose of 200 mcg in 2 hour period is given, contact provider for further orders. Maximum total dose of 400 mcg over an 8 hour period. If respiratory rate LESS THAN 8 or maternal HR LESS THAN 50, call provider., Intrapartum $Given 02/19/2024 7:25 AM RECORDAK OPERATOR 100 mcg $Given 02/19/2024 6:02 AM RECORDAK OPERATOR 100 mcg fentaNYL (SUBLIMAZE) 2 mcg/mL, BUPivacaine (MARCAINE) 0.125% in NS premix for PCEA PCEA dose (mL): 5, PCEA Lockout Interval (min): 15 minutes, Hour Limit (mL): 25, Continuous Rate (Basal Rate) (mL/hr): 10, Initial Set-up verified by: Dr. Hernandez and Catherine Nunez RN, Absolutely no anticoagulants, thrombolytics or antiplatelet medications or other opioid analgesics or other sedatives without prior notification of anesthesiology. For CADD cassettes, pharmacy to send epidural tubing set., Routine $New Syringe/Cartridge 02/20/2024 1:14 AM RECORDAK OPERATOR $New Syringe/Cartridge 02/19/2024 5:37 PM RECORDAK OPERATOR $New Syringe/Cartridge 02/19/2024 8:48 AM RECORDAK OPERATOR [id number] 0.2-0.125-0.9 MG/100ML-% injection Catherine Schilling: cabinet override Absolutely no anticoagulants, thrombolytics or antiplatelet medications or other opioid analgesics or other sedatives without prior notification of anesthesiology. For CADD cassettes, pharmacy to send epidural tubing set., 1 dose, Starting on Mon02/19/24 at 0827, Until Mon02/19/24 at 0848 glucagon injection 1 mg 1 mg, Subcutaneous, EVERY 15 MIN PRN, low blood sugar, May repeat x 1 only, Starting on Mon02/20/24 at 0644, May give SQ or IM. ONLY use glucagon IF patient has NO IV access AND is UNABLE to swallow AND blood glucose is LESS than or EQUAL to 50 mg/dL., glucose gel 15-30 g 15-30 g, Oral, EVERY 15 MIN PRN, low blood sugar, Starting on Mon02/20/24 at 0644, Give first dose for initial blood glucose less than 70 mg/dL per the dosing instructions below. If blood glucose at 15 minute rechecks is still less than or equal to 80 mg/dL, continue to administer doses per blood glucose parameters every 15 minutes, as needed, until blood glucose level is at or above 80 mg/dL x 2 consecutive 15 minute checks. Dosing Instructions: ~If patient is conscious and able to swallow and NO enteral tube For initial BG 51-69mg/dL OR 15 minute recheck BG 51- 80 mg/dL - give 15 g For BG less than or equal to 50 mg/dL - give 30 g ~ If Enteral tube For initial BG 51-69mg/dL OR 15 minute recheck BG 51- 80 mg/dL - give apple juice 120 mL (4 oz or 15 g of CHO) via enteral tube For BG less than or equal to 50 mg/dL - Give apple juice 240 mL (8 oz or 30 g of CHO) via enteral tube ~Oral gel is preferable for conscious and able to swallow patient. ~IF gel unavailable or patient refuses may provide apple juice per Enteral tube dosing instructions. Document juice on I and O flowsheet., hydrocortisone (Perianal) (ANUSOL-HC) 2.5 % cream Rectal, 3 TIMES DAILY PRN, hemorrhoids, Starting on Mon02/20/24 at 0644, Apply to hemorrhoids. Send only if nurse requests., $Given 02/20/2024 2:57 PM RECORDAK OPERATOR ibuprofen (ADVIL/MOTRIN) tablet 800 mg 800 mg, Oral, EVERY 6 HOURS PRN, other, cramping, Starting on Mon02/20/24 at 0644, Start 6 hours after ketorolac is completed (if ordered). Max dose: 3200 mg/day Give with food., $Given 02/22/2024 6:05 AM RECORDAK OPERATOR 800 mg $Given 02/21/2024 5:55 PM RECORDAK OPERATOR 800 mg $Given 02/21/2024 10:50 AM RECORDAK OPERATOR 800 mg insulin regular (MYXREDLIN) 1 unit/mL infusion Intravenous, CONTINUOUS PRN, other, Start infusion per administration instructions., Starting on Mon02/19/24 at 0529, Follow OB DIAB INSULIN Infusion in Labor algorithm. Initiate drip with Algorithm #1. For patients with type 1 diabetes initiate insulin and D10W per algorithm when blood glucose is > 70 mg/dL. For patients with type 2 or gestational diabetes initiate insulin when blood glucose is > 110 mg/dL for 2 consecutive 1-hour glucose checks. Maintain glucose level between 70 - 110 mg/dL. For patients with gestational diabetes (GDM), stop insulin infusion and D10W following delivery of placenta. For patients with Type 2 diabetes who did not require insulin during , stop the insulin infusion following delivery of placenta. For patients with Type 1 and Type 2 diabetes on insulin, initiate subcutaneous insulin per orders then stop insulin infusion and D10W 2 hours after first subcutaneous insulin dose. For patients transitioning to ambulatory insulin infusion pump use IP DIAB CONTINUOUS SUBCUTANEOUS INSULIN INFUSION VIA AMBULATORY PUMP order set, stop insulin drip 1 hour after resumption of ambulatory pump. Rate/Dose Change 02/20/2024 4:30 AM RECORDAK OPERATOR Rate/Dose Change 02/20/2024 3:28 AM RECORDAK OPERATOR 4 Units/hr 4 mL/hr Rate/Dose Change 02/19/2024 11:21 PM RECORDAK OPERATOR ketorolac (TORADOL) injection 30 mg 30 mg, Intravenous, ONCE PRN, moderate pain, Starting on Mon02/19/24 at 0519, For 1 dose, Give immediately x 1 dose. Any patient with renal function concerns should have a serum creatinine drawn and creatinine clearance calculated. If creatinine clearance is 30-50 ml/min give 15 mg, if less than 30 ml/min do not administer ketorolac. Can cause pain on injection. If ordered intravenously (IV) : administer through a running maintenance fluid over 1 minute followed by a flush. If patient complains of pain on injection, may dilute 15-30 mg in 5 mL and push over 1 to 2 minutes., $Given 02/20/2024 7:20 AM RECORDAK OPERATOR 30 mg lactated ringers BOLUS 1,000 mL Intravenous, 1,000 mL, ONCE PRN, IF patient to have epidural or intrathecal narcotics and NOT pre-eclamptic, Starting on Mon02/19/24 at 05, For 1 dose, IV bolus must be initiated 15-30 min prior to epidural or intrathecal, then IV fluids per labor orders. Nurse may discontinue this order if duplicate., Intrapartum Rate/Dose Change 02/19/2024 8:10 AM RECORDAK OPERATOR lactated ringers BOLUS 500 mL Intravenous, 500 mL, ONCE PRN, IF patient to have epidural or intrathecal narcotics AND patient is pre-eclamptic. , Starting on Mon02/19/24 at 0519, For 1 dose, IV bolus must be initiated 15-30 min prior to epidural or intrathecal IF pre-eclamptic, then IV fluids per labor orders. Nurse may discontinue this order if duplicate., Intrapartum $New Bag 02/20/2024 4:56 AM RECORDAK OPERATOR 500 mLs lactated ringers infusion at 25-125 mL/hr, Intravenous, CONTINUOUS, Intrapartum, Starting on Mon02/19/24 at 0530, Until Mon02/20/24 at 0646 $New Bag 02/19/2024 8:55 AM RECORDAK OPERATOR 50 mL/hr Rate/Dose Verify 02/19/2024 7:40 AM RECORDAK OPERATOR 125 mL/ hr Rate/Dose Change 02/19/2024 6:00 AM RECORDAK OPERATOR 125 mL/ hr loperamide (IMODIUM) capsule 4 mg 4 mg, Oral, ONCE PRN, other, Give with first dose of carboprost (HEMABATE), Starting on Mon02/20/24 at 0644, For 1 dose, May give only after delivery., misoprostol (CYTOTEC) tablet 400 mcg 400 mcg, Oral, GIVE ONCE PRN AND REPEAT ACCORDING TO INSTRUCTIONS, post- hemorrhage, Starting on Mon02/20/24 at 0644, Administer only if directed by provider. Max administrations: 4 doses, misoprostol (CYTOTEC) tablet 800 mcg 800 mcg, Rectal, GIVE ONCE PRN AND REPEAT ACCORDING TO INSTRUCTIONS, post- hemorrhage, Starting on Mon02/20/24 at 0644, Give rectally if unable to take oral without complications. Administer only if directed by provider. Max administrations: 4 doses., naloxone (NARCAN) injection 0.2 mg 0.2 mg, Intravenous, EVERY 2 MIN PRN, opioid reversal, Starting on Mon02/20/24 at 2255, Administer intravenous route when available and notify provider when administered. For unintended sedation or respiratory depression if all of the below criteria are met: ~ respiratory rate LESS than or EQUAL to 8. ~SaO2 less than 92% and or/end-tidal CO2 is greater than 50. ~ the patient is receiving an opioid, has unintended sedations assessed as RASS (-3), and is currently not on mechanical ventilation. RASS scale moderate (-3) is movement or eye opening to voice but no eye contact. Patient Monitoring Once the patient has demonstrated a response to the naloxone, continue to monitor respiratory rate, depth, oxygen saturation and end-tidal CO2 (if available) every 15 minutes x 2, then every 30 minutes x 2, then every 1 hour x 1 after each naloxone dose. Consider transfer to ICU if patient respiratory parameters have not improved after 4 naloxone doses. naloxone (NARCAN) injection 0.2 mg 0.2 mg, Intramuscular, EVERY 2 MIN PRN, opioid reversal, Starting on Mon02/20/24 at 2255, Administer intramuscular if an intravenous route is not available and notify provider when administered. For unintended sedation or respiratory depression if all of the below criteria are met: ~ respiratory rate LESS than or EQUAL to 8. ~SaO2 less than 92% and or/end-tidal CO2 is greater than 50. ~ the patient is receiving an opioid, has unintended sedations assessed as RASS (-3), and is currently not on mechanical ventilation. RASS scale moderate (-3) is movement or eye opening to voice but no eye contact. Patient Monitoring Once the patient has demonstrated a response to the naloxone, continue to monitor respiratory rate, depth, oxygen saturation and end-tidal CO2 (if available) every 15 minutes x 2, then every 30 minutes x 2, then every 1 hour x 1 after each naloxone dose. Consider transfer to ICU if patient respiratory parameters have not improved after 4 naloxone doses. naloxone (NARCAN) injection 0.4 mg 0.4 mg, Intravenous, EVERY 2 MIN PRN, opioid reversal, Starting on Mon02/20/24 at 2255, Administer intravenous route when available and notify provider when administered. For unintended sedation or respiratory depression if all of the below criteria are met: ~ respiratory rate LESS than or EQUAL to 8. ~ SaO2 less than 92% and or/end-tidal CO2 is greater than 50. ~ the patient is receiving an opioid, has unintended sedation assessed as RASS (-4) or (-5) and patient is currently not on mechanical ventilation. RASS scale (-4) is deep sedation with no response to voice but movement or eye opening to physical stimulation. RASS scale (-5) is unarousable. Patient Monitoring Once the patient has demonstrated a response to the naloxone, continue to monitor respiratory rate, depth, oxygen saturation and end-tidal CO2 (if available) every 15 minutes x 2, then every 30 minutes x 2, then every 1 hour x 1 after each naloxone dose. Consider transfer to ICU if patient respiratory parameters have not improved after 4 naloxone doses. naloxone (NARCAN) injection 0.4 mg 0.4 mg, Intramuscular, EVERY 2 MIN PRN, opioid reversal, Starting on Mon02/20/24 at 2255, Administer intramuscular if an intravenous route is not available and notify provider when administered. For unintended sedation or respiratory depression if all of the below criteria are met: ~ respiratory rate LESS than or EQUAL to 8. ~ SaO2 less than 92% and or/end-tidal CO2 is greater than 50. ~ the patient is receiving an opioid, has unintended sedation assessed as RASS (-4) or (-5) and patient is currently not on mechanical ventilation. RASS scale (-4) is deep sedation with no response to voice but movement or eye opening to physical stimulation. RASS scale (-5) is unarousable. Patient Monitoring Once the patient has demonstrated a response to the naloxone, continue to monitor respiratory rate, depth, oxygen saturation and end-tidal CO2 (if available) every 15 minutes x 2, then every 30 minutes x 2, then every 1 hour x 1 after each naloxone dose. Consider transfer to ICU if patient respiratory parameters have not improved after 4 naloxone doses. oxyCODONE (ROXICODONE) tablet 5 mg 5 mg, Oral, EVERY 6 HOURS PRN, severe pain, Starting on Mon02/20/24 at 2244 $Given 02/21/2024 5:02 AM RECORDAK OPERATOR 5 mg $Given 02/20/2024 11:02 PM RECORDAK OPERATOR 5 mg oxytocin (PITOCIN) 30 units in 500 mL 0.9% NaCl infusion 100-340 mL/hr, Intravenous, CONTINUOUS PRN, After delivery to prevent uterine atony, Starting on Mon02/19/24 at 0519, Give after delivery to prevent uterine atony per provider direction. Administer 340 mL/hr over 30 minutes for a total of 170 mL, then decrease to 100 mL/hr until infusion complete (about 3.5 hours) or per provider direction. Start new bag at delivery. Discontinue or saline lock peripheral IV per nurse discretion., Rate/Dose Change 02/20/2024 7:02 AM RECORDAK OPERATOR 100 mL/hr 100 mL/hr oxytocin (PITOCIN) 30 units in 500 mL 0.9% NaCl infusion 340 mL/hr, Intravenous, CONTINUOUS PRN, for hemorrhage (PPH) UNTIL bleeding subsided., Starting on Mon02/19/24 at 0519, When bleeding subsides decrease rate to 100 mL/hr. Notify provider immediately when infusion begun. Oxytocin is first line medication for PPH., Intrapartum $New Bag 02/20/2024 6:30 AM RECORDAK OPERATOR 340 mL/hr 340 mL/hr penicillin G potassium 3 Million Units in D5W 50 mL intermittent infusion Routine, 3 Million Units, Intravenous, EVERY 4 HOURS, First dose on Mon02/19/24 at 0930, To be given until delivery., Indications: Group B Strep, IntrapartumIndications:Gr oup B Strep $New Bag 02/20/2024 2:57 AM RECORDAK OPERATOR 3 Million Units 100 mL/hr $New Bag 02/19/2024 10:55 PM RECORDAK OPERATOR 3 Million Units 100 mL/ hr $New Bag 02/19/2024 7:06 PM RECORDAK OPERATOR 3 Million Units 100 mL/h r penicillin G potassium 5 million units vial to attach to NS 100 mL bag STAT, 5 Million Units, Intravenous, ONCE, On Mon02/19/24 at 0530, For 1 dose, Loading Dose. Active upon active labor status., Indications: Group B Strep, IntrapartumIndications:Group B Strep $New Bag 02/19/2024 6:10 AM RECORDAK OPERATOR 5 Million Units multivitamin w/iron per tablet 1 tablet 1 tablet, Oral, DAILY, First dose on Mon02/20/24 at 0900 $Given 02/22/2024 9:59 AM RECORDAK OPERATOR 1 tablet $Given 02/21/2024 8:48 AM RECORDAK OPERATOR 1 tablet $Given 02/20/2024 10:29 AM RECORDAK OPERATOR 1 tablet senna-docusate (SENOKOT-S/PERICOLACE) 8.6-50 MG per tablet 1 tablet 1 tablet, Oral, 2 TIMES DAILY, First dose on Mon02/20/24 at 2300, Hold for loose stools. $Given 02/22/2024 10:00 AM RECORDAK OPERATOR 1 tablet $Given 02/21/2024 11:06 PM RECORDAK OPERATOR 1 tablet $Given 02/21/2024 8:48 AM RECORDAK OPERATOR 1 tablet sodium chloride 0.9 % infusion at 10 mL/hr, Intravenous, CONTINUOUS PRN, Carrier fluid for insulin infusion to ensure insulin infusion delivery. Piggyback insulin infusion tubing into carrier fluid port closest to vascular catheter insertion site. Discontinue when discontinuing insulin drip., Starting on Mon02/19/24 at 0530, Until Mon02/20/24 at 0646 $New Bag 02/19/2024 10:45 AM RECORDAK OPERATOR 10 mL/hr documented in this encounter Active and Recently Administered Medications Times are shown in RECORDAK OPERATOR. Scheduled Medication Order 02/20/2024 02/21/2024 02/22/2024 docusate sodium (COLACE) capsule 100 mg (CANCELED) 100 mg, Oral, DAILY, First dose on Mon02/20/24 at 0900, Hold for loose stools., 1029 ($Given - Provider: Tonja Hartley RN) fentaNYL (SUBLIMAZE) 2 mcg/mL, BUPivacaine (MARCAINE) 0.125% in NS premix for PCEA (CANCELED) PCEA dose (mL): 5, PCEA Lockout Interval (min): 15 minutes, Hour Limit (mL): 25, Continuous Rate (Basal Rate) (mL/hr): 10, Initial Set-up verified by: Dr. Hernandez and Catherine Nunez RN, Absolutely no anticoagulants, thrombolytics or antiplatelet medications or other opioid analgesics or other sedatives without prior notification of anesthesiology. For CADD cassettes, pharmacy to send epidural tubing set., Routine 0114 ($New Syringe/Cartridge - Provider: Domitila Meadows RN - Comment: 0.5ml primed)0638 (Stopped - Provider: Domitila Meadows RN)0734 (Hold - Provider: Domitila Meadows RN - Reason: Order parameters not met) penicillin G potassium 3 Million Units in D5W 50 mL intermittent infusion (CANCELED)(Linked Group 1) Routine, 3 Million Units, Intravenous, EVERY 4 HOURS, First dose on Mon02/19/24 at 0930, To be given until delivery., Indications: Group B Strep, Intrapartum 0257 ($New Bag - Provider: Domitila Meadows RN - Comment: pt sleeping, wristband covered.) multivitamin w/iron per tablet 1 tablet 1 tablet, Oral, DAILY, First dose on Mon02/20/24 at 0900 1029 ($Given - Provider: Tonja Hartley RN) 0848 ($Given - Provider: Swapna Castano RN) 0959 ($Given - Provider: Tonja Hartley RN) senna-docusate (SENOKOT-S/PERICOLACE) 8.6-50 MG per tablet 1 tablet 1 tablet, Oral, 2 TIMES DAILY, First dose on Mon02/20/24 at 2300, Hold for loose stools. 2302 ($Given - Provider: Mamta Infante RN) 0848 ($Given - Provider: Swapna Castano, RN)2306 ($Given - Provider: Sintia Fierro, RN) 1000 ($Given - Provider: Tonja Hartley RN) PRN Medication Order 02/20/2024 02/21/2024 02/22/2024 acetaminophen (TYLENOL) tablet 650 mg 650 mg, Oral, EVERY 4 HOURS PRN, mild pain, fever, greater than or equal to 38 C /100.4 F (oral) or 38.5 C/ 101.4 F (core)., Starting on Mon02/20/24 at 0644, Maximum acetaminophen dose from all sources = 75 mg/kg/day not to exceed 4 grams/day., 1029 ($Given - Provider: Tonja Hartley RN)1451 ($Given - Provider: Tonja Hartley RN)2051 ($Given - Provider: Mamta Infante RN) 0207 (Not Given - Provider: Mena Heller RN - Reason: Patient/family refused)0502 ($Given - Provider: Sheron Palacios LPN)0848 ($Given - Provider: Swapna Castano RN)1348 ($Given - Provider: Swapna Castano RN)1755 ($Given - Provider: Swapna Castano RN)2306 ($Given - Provider: Sintia Fierro, KEITH) 0605 ($Given - Provider: Sintia Fierro, KEITH)0959 ($Given - Provider: Tonja Hartley RN) benzocaine (AMERICAINE) 20 % topical spray Topical, 4 TIMES DAILY PRN, perineal pain, Starting on Mon02/20/24 at 0644, 1457 ($Given - Provider: Tonja Hartley RN) 1546 (Canceled Entry - Provider: Swapna Castano RN) benzocaine (AMERICAINE) 20 % topical spray Topical, EVERY 6 HOURS PRN, hemorrhoid pain, Starting on Mon02/20/24 at 2245 1545 ($Given - Provider: Swapna Castano, KEITH) bisacodyl (DULCOLAX) suppository 10 mg 10 mg, Rectal, DAILY PRN, constipation, Starting on Mon02/20/24 at 0645, Do not administer if patient has 3rd or 4th degree lacerations. Hold for loose stools., carboprost (HEMABATE) injection 250 mcg(Linked Group 2) 250 mcg, Intramuscular, EVERY 15 MIN PRN, other, ONLY for uterine atony with significant bleeding POST-DELIVERY, Starting on Mon02/20/24 at 0644, Notify provider IF uterine atony and clarify with provider medication preference. Administer only if directed by provider. Give with caution in patients with asthma, active pulmonary, hepatic, renal or cardiovascular disease., dextrose 10% infusion (CANCELED) at 0-100 mL/hr, Intravenous, CONTINUOUS PRN, Set current rate per OB DIAB INSULIN Infusion in Labor algorithm. Discontinue when discontinuing insulin drip., Starting on Mon02/19/24 at 0529, Until Mon02/20/24 at 0646 0450 ($New Bag - Provider: Domitila Meadows RN) dextrose 50 % injection 25-50 mL(Linked Group 3) 25-50 mL, Intravenous, EVERY 15 MIN PRN, low blood sugar, Administer over 1-5 Minutes, Starting on Mon02/20/24 at 0644, Use if have IV access, BG less than 70 mg/dL and meet dose criteria below: Dose if conscious and alert (or disorientated) and NPO = 25 mL Dose if unconscious / not alert = 50 mL Give first dose for initial blood glucose less than 70 mg/dL. If blood glucose at 15 minute recheck is less than or equal to 80 mg/dL continue to administer carbohydrate treatment every 15 minutes, as needed, based on blood glucose and assessment parameters until blood glucose level is above 80 mg/dL x 2 consecutive 15 minute checks., glucagon injection 1 mg(Linked Group 3) 1 mg, Subcutaneous, EVERY 15 MIN PRN, low blood sugar, May repeat x 1 only, Starting on Mon02/20/24 at 0644, May give SQ or IM. ONLY use glucagon IF patient has NO IV access AND is UNABLE to swallow AND blood glucose is LESS than or EQUAL to 50 mg/dL., glucose gel 15-30 g(Linked Group 3) 15-30 g, Oral, EVERY 15 MIN PRN, low blood sugar, Starting on Mon02/20/24 at 0644, Give first dose for initial blood glucose less than 70 mg/dL per the dosing instructions below. If blood glucose at 15 minute rechecks is still less than or equal to 80 mg/dL, continue to administer doses per blood glucose parameters every 15 minutes, as needed, until blood glucose level is at or above 80 mg/dL x 2 consecutive 15 minute checks. Dosing Instructions: ~If patient is conscious and able to swallow and NO enteral tube For initial BG 51-69mg/dL OR 15 minute recheck BG 51- 80 mg/dL - give 15 g For BG less than or equal to 50 mg/dL - give 30 g ~ If Enteral tube For initial BG 51-69mg/dL OR 15 minute recheck BG 51- 80 mg/dL - give apple juice 120 mL (4 oz or 15 g of CHO) via enteral tube For BG less than or equal to 50 mg/dL - Give apple juice 240 mL (8 oz or 30 g of CHO) via enteral tube ~Oral gel is preferable for conscious and able to swallow patient. ~IF gel unavailable or patient refuses may provide apple juice per Enteral tube dosing instructions. Document juice on I and O flowsheet., hydrocortisone (Perianal) (ANUSOL-HC) 2.5 % cream Rectal, 3 TIMES DAILY PRN, hemorrhoids, Starting on Mon02/20/24 at 0644, Apply to hemorrhoids. Send only if nurse requests., 1457 ($Given - Provider: Tonja Hartley RN) ibuprofen (ADVIL/MOTRIN) tablet 800 mg 800 mg, Oral, EVERY 6 HOURS PRN, other, cramping, Starting on Mon02/20/24 at 0644, Start 6 hours after ketorolac is completed (if ordered). Max dose: 3200 mg/day Give with food., 1330 ($Given - Provider: Tonja Hartley RN)2051 ($Given - Provider: Mamta Infante RN) 0502 ($Given - Provider: Sheron Palacios LPN)1050 ($Given - Provider: Swapna Castano, RN)1755 ($Given - Provider: Swapna Castano, RN) 0605 ($Given - Provider: Sintia Fierro RN) insulin regular (MYXREDLIN) 1 unit/mL infusion (CANCELED) Intravenous, CONTINUOUS PRN, other, Start infusion per administration instructions., Starting on Mon02/19/24 at 0529, Follow OB DIAB INSULIN Infusion in Labor algorithm. Initiate drip with Algorithm #1. For patients with type 1 diabetes initiate insulin and D10W per algorithm when blood glucose is > 70 mg/dL. For patients with type 2 or gestational diabetes initiate insulin when blood glucose is > 110 mg/dL for 2 consecutive 1-hour glucose checks. Maintain glucose level between 70 - 110 mg/dL. For patients with gestational diabetes (GDM), stop insulin infusion and D10W following delivery of placenta. For patients with Type 2 diabetes who did not require insulin during , stop the insulin infusion following delivery of placenta. For patients with Type 1 and Type 2 diabetes on insulin, initiate subcutaneous insulin per orders then stop insulin infusion and D10W 2 hours after first subcutaneous insulin dose. For patients transitioning to ambulatory insulin infusion pump use IP DIAB CONTINUOUS SUBCUTANEOUS INSULIN INFUSION VIA AMBULATORY PUMP order set, stop insulin drip 1 hour after resumption of ambulatory pump. 0328 (Rate/Dose Change - Provider: Domitila Meadows RN)0430 (Rate/Dose Change - Provider: Domitila Meadows RN) ketorolac (TORADOL) injection 30 mg (COMPLETED)(Linked Group 4) 30 mg, Intravenous, ONCE PRN, moderate pain, Starting on Mon02/19/24 at 0519, For 1 dose, Give immediately x 1 dose. Any patient with renal function concerns should have a serum creatinine drawn and creatinine clearance calculated. If creatinine clearance is 30-50 ml/min give 15 mg, if less than 30 ml/min do not administer ketorolac. Can cause pain on injection. If ordered intravenously (IV) : administer through a running maintenance fluid over 1 minute followed by a flush. If patient complains of pain on injection, may dilute 15-30 mg in 5 mL and push over 1 to 2 minutes., 0720 ($Given - Provider: Colleen Ko RN) lactated ringers BOLUS 500 mL (COMPLETED)(Linked Group 5) Intravenous, 500 mL, ONCE PRN, IF patient to have epidural or intrathecal narcotics AND patient is pre-eclamptic. , Starting on Mon02/19/24 at 0519, For 1 dose, IV bolus must be initiated 15-30 min prior to epidural or intrathecal IF pre-eclamptic, then IV fluids per labor orders. Nurse may discontinue this order if duplicate., Intrapartum 0456 ($New Bag - Provider: Domitila Meadows RN - Comment: minimal variability FHR tracing) lanolin cream Topical, EVERY 1 HOUR PRN, other, sore nipples, Starting on Mon02/20/24 at 0644, Apply to sore nipples., lidocaine 1 % 0.1-20 mL 0.1-20 mL, Subcutaneous, ONCE PRN, episiotomy/laceration repair, Starting on Mon02/19/24 at 0519, For 1 dose, Available for provider administration after delivery., 0326 (Hold - Provider: Domitila Meadows RN - Reason: Order parameters not met) loperamide (IMODIUM) capsule 2 mg 2 mg, Oral, EVERY 2 HOURS PRN, other, after each loose stool, Starting on Mon02/20/24 at 0644, May give only after delivery. For diarrhea occurring after carboprost (HEMABATE) administration ONLY. Maximum 16 mg/day. Do NOT give stool softeners or laxatives until diarrhea is resolved., loperamide (IMODIUM) capsule 4 mg(Linked Group 2) 4 mg, Oral, ONCE PRN, other, Give with first dose of carboprost (HEMABATE), Starting on Mon02/20/24 at 0644, For 1 dose, May give only after delivery., methylergonovine (METHERGINE) injection 200 mcg 200 mcg, Intramuscular, EVERY 2 HOURS PRN, ONLY for uterine atony with significant bleeding POST-DELIVERY, Starting on Mon02/20/24 at 0644, Notify provider IF uterine atony and clarify with provider medication preference. Administer only if directed by provider. Contraindicated if Blood Pressure greater than 140/90, preeclampsia, or hypertension., misoprostol (CYTOTEC) tablet 400 mcg(Linked Group 6) 400 mcg, Oral, GIVE ONCE PRN AND REPEAT ACCORDING TO INSTRUCTIONS, post- hemorrhage, Starting on Mon02/20/24 at 0644, Administer only if directed by provider. Max administrations: 4 doses, misoprostol (CYTOTEC) tablet 800 mcg(Linked Group 6) 800 mcg, Rectal, GIVE ONCE PRN AND REPEAT ACCORDING TO INSTRUCTIONS, post- hemorrhage, Starting on Mon02/20/24 at 0644, Give rectally if unable to take oral without complications. Administer only if directed by provider. Max administrations: 4 doses., naloxone (NARCAN) injection 0.2 mg(Linked Group 7) 0.2 mg, Intravenous, EVERY 2 MIN PRN, opioid reversal, Starting on Mon02/20/24 at 2255, Administer intravenous route when available and notify provider when administered. For unintended sedation or respiratory depression if all of the below criteria are met: ~ respiratory rate LESS than or EQUAL to 8. ~SaO2 less than 92% and or/end-tidal CO2 is greater than 50. ~ the patient is receiving an opioid, has unintended sedations assessed as RASS (-3), and is currently not on mechanical ventilation. RASS scale moderate (-3) is movement or eye opening to voice but no eye contact. Patient Monitoring Once the patient has demonstrated a response to the naloxone, continue to monitor respiratory rate, depth, oxygen saturation and end-tidal CO2 (if available) every 15 minutes x 2, then every 30 minutes x 2, then every 1 hour x 1 after each naloxone dose. Consider transfer to ICU if patient respiratory parameters have not improved after 4 naloxone doses. naloxone (NARCAN) injection 0.2 mg(Linked Group 7) 0.2 mg, Intramuscular, EVERY 2 MIN PRN, opioid reversal, Starting on Mon02/20/24 at 2255, Administer intramuscular if an intravenous route is not available and notify provider when administered. For unintended sedation or respiratory depression if all of the below criteria are met: ~ respiratory rate LESS than or EQUAL to 8. ~SaO2 less than 92% and or/end-tidal CO2 is greater than 50. ~ the patient is receiving an opioid, has unintended sedations assessed as RASS (-3), and is currently not on mechanical ventilation. RASS scale moderate (-3) is movement or eye opening to voice but no eye contact. Patient Monitoring Once the patient has demonstrated a response to the naloxone, continue to monitor respiratory rate, depth, oxygen saturation and end-tidal CO2 (if available) every 15 minutes x 2, then every 30 minutes x 2, then every 1 hour x 1 after each naloxone dose. Consider transfer to ICU if patient respiratory parameters have not improved after 4 naloxone doses. naloxone (NARCAN) injection 0.4 mg(Linked Group 7) 0.4 mg, Intravenous, EVERY 2 MIN PRN, opioid reversal, Starting on Mon02/20/24 at 2255, Administer intravenous route when available and notify provider when administered. For unintended sedation or respiratory depression if all of the below criteria are met: ~ respiratory rate LESS than or EQUAL to 8. ~ SaO2 less than 92% and or/end-tidal CO2 is greater than 50. ~ the patient is receiving an opioid, has unintended sedation assessed as RASS (-4) or (-5) and patient is currently not on mechanical ventilation. RASS scale (-4) is deep sedation with no response to voice but movement or eye opening to physical stimulation. RASS scale (-5) is unarousable. Patient Monitoring Once the patient has demonstrated a response to the naloxone, continue to monitor respiratory rate, depth, oxygen saturation and end-tidal CO2 (if available) every 15 minutes x 2, then every 30 minutes x 2, then every 1 hour x 1 after each naloxone dose. Consider transfer to ICU if patient respiratory parameters have not improved after 4 naloxone doses. naloxone (NARCAN) injection 0.4 mg(Linked Group 7) 0.4 mg, Intramuscular, EVERY 2 MIN PRN, opioid reversal, Starting on Mon02/20/24 at 2255, Administer intramuscular if an intravenous route is not available and notify provider when administered. For unintended sedation or respiratory depression if all of the below criteria are met: ~ respiratory rate LESS than or EQUAL to 8. ~ SaO2 less than 92% and or/end-tidal CO2 is greater than 50. ~ the patient is receiving an opioid, has unintended sedation assessed as RASS (-4) or (-5) and patient is currently not on mechanical ventilation. RASS scale (-4) is deep sedation with no response to voice but movement or eye opening to physical stimulation. RASS scale (-5) is unarousable. Patient Monitoring Once the patient has demonstrated a response to the naloxone, continue to monitor respiratory rate, depth, oxygen saturation and end-tidal CO2 (if available) every 15 minutes x 2, then every 30 minutes x 2, then every 1 hour x 1 after each naloxone dose. Consider transfer to ICU if patient respiratory parameters have not improved after 4 naloxone doses. No MMR Needed - Assessment: Patient does not need MMR vaccine CONTINUOUS PRN, Starting on Mon02/20/24 at 0645, Until Bethanie 7/24 at 1331, Assessment: Patient does not need MMR immunization, No Tdap Needed - Assessment: Patient does not need Tdap vaccine CONTINUOUS PRN, Starting on Mon02/20/24 at 0645, Until Mon02/22/24 at 1331, Assessment: Patient does not need Tdap immunization, oxyCODONE (ROXICODONE) tablet 5 mg 5 mg, Oral, EVERY 6 HOURS PRN, severe pain, Starting on Mon02/20/24 at 2244 2302 ($Given - Provider: Mamta Infante, KEITH) 0502 ($Given - Provider: Sheron Palacios LPN) oxytocin (PITOCIN) 30 units in 500 mL 0.9% NaCl infusion 100-340 mL/hr, Intravenous, CONTINUOUS PRN, After delivery to prevent uterine atony, Starting on Mon02/19/24 at 0519, Give after delivery to prevent uterine atony per provider direction. Administer 340 mL/hr over 30 minutes for a total of 170 mL, then decrease to 100 mL/hr until infusion complete (about 3.5 hours) or per provider direction. Start new bag at delivery. Discontinue or saline lock peripheral IV per nurse discretion., 0326 (Hold - Provider: Domitila Meadows RN - Reason: Order parameters not met)0702 (Rate/Dose Change - Provider: Domitila Meadows RN) oxytocin (PITOCIN) 30 units in 500 mL 0.9% NaCl infusion (CANCELED) 340 mL/hr, Intravenous, CONTINUOUS PRN, for hemorrhage (PPH) UNTIL bleeding subsided., Starting on Mon02/19/24 at 0519, When bleeding subsides decrease rate to 100 mL/hr. Notify provider immediately when infusion begun. Oxytocin is first line medication for PPH., Intrapartum 0630 ($New Bag - Provider: Domitila Meadows RN) oxytocin (PITOCIN) 30 units in 500 mL 0.9% NaCl infusion 340 mL/hr, Intravenous, CONTINUOUS PRN, for hemorrhage (PPH) UNTIL bleeding subsided., Starting on Mon02/20/24 at 0644, When bleeding subsides decrease rate to 100 mL/hr. Notify provider immediately when infusion begun. Oxytocin is first line medication for PPH., oxytocin (PITOCIN) injection 10 Units 10 Units, Intramuscular, ONCE PRN, Give after delivery to prevent uterine atony., Starting on Mon02/19/24 at 0519, For 1 dose, Give after delivery to prevent uterine atony if no IV access is available per provider direction., oxytocin (PITOCIN) injection 10 Units 10 Units, Intramuscular, ONCE PRN, for hemorrhage (PPH), IF no IV access is available., Starting on Mon02/20/24 at 0644, For 1 dose, Notify provider immediately when injection given. Oxytocin is first line medication for PPH., tranexamic acid 1 g in 100 mL NS IV bag (premix) 1 g, Intravenous, Administer over 10 Minutes, EVERY 30 MIN PRN, Post- hemorrhage (PPH), Starting on Mon02/20/24 at 0644, For 2 doses, Provider consultation REQUIRED and MUST be administered as soon as the ONSET of bleeding AND within 3 hours of regardless of cause of the PPH (atony OR laceration). IF bleeding continues, a 2nd dose may be administered after 30 minutes. IF concern for DIC (Disseminated Intravascular Coagulation), obtain coagulation studies PRIOR to administration. Contraindications include: history of PE (Pulmonary Emboli), DVT (Deep Vein Thrombosis) and current Subarachnoid hemorrhage and active DIC. Administer only if directed by provider., Linked Groups Order Group 1: penicillin G potassium 5 million units vial to attach to NS 100 mL bag (COMPLETED) STAT, 5 Million Units, Intravenous, ONCE, On Mon02/19/24 at 0530, For 1 dose, Loading Dose. Active upon active labor status., Indications: Group B Strep, Intrapartum Followed by penicillin G potassium 3 Million Units in D5W 50 mL intermittent infusion (CANCELED)Jump to med Routine, 3 Million Units, Intravenous, EVERY 4 HOURS, First dose on Mon02/19/24 at 0930, To be given until delivery., Indications: Group B Strep, Intrapartum Group 2: carboprost (HEMABATE) injection 250 mcgJump to med 250 mcg, Intramuscular, EVERY 15 MIN PRN, other, ONLY for uterine atony with significant bleeding POST-DELIVERY, Starting on Mon02/20/24 at 0644, Notify provider IF uterine atony and clarify with provider medication preference. Administer only if directed by provider. Give with caution in patients with asthma, active pulmonary, hepatic, renal or cardiovascular disease., And loperamide (IMODIUM) capsule 4 mgJump to med 4 mg, Oral, ONCE PRN, other, Give with first dose of carboprost (HEMABATE), Starting on Mon02/20/24 at 0644, For 1 dose, May give only after delivery., Group 3: glucose gel 15-30 gJump to med 15-30 g, Oral, EVERY 15 MIN PRN, low blood sugar, Starting on Mon02/20/24 at 0644, Give first dose for initial blood glucose less than 70 mg/dL per the dosing instructions below. If blood glucose at 15 minute rechecks is still less than or equal to 80 mg/dL, continue to administer doses per blood glucose parameters every 15 minutes, as needed, until blood glucose level is at or above 80 mg/dL x 2 consecutive 15 minute checks. Dosing Instructions: ~If patient is conscious and able to swallow and NO enteral tube For initial BG 51-69mg/dL OR 15 minute recheck BG 51- 80 mg/dL - give 15 g For BG less than or equal to 50 mg/dL - give 30 g ~ If Enteral tube For initial BG 51-69mg/dL OR 15 minute recheck BG 51- 80 mg/dL - give apple juice 120 mL (4 oz or 15 g of CHO) via enteral tube For BG less than or equal to 50 mg/dL - Give apple juice 240 mL (8 oz or 30 g of CHO) via enteral tube ~Oral gel is preferable for conscious and able to swallow patient. ~IF gel unavailable or patient refuses may provide apple juice per Enteral tube dosing instructions. Document juice on I and O flowsheet., Or dextrose 50 % injection 25-50 mLJump to med 25-50 mL, Intravenous, EVERY 15 MIN PRN, low blood sugar, Administer over 1-5 Minutes, Starting on Mon02/20/24 at 0644, Use if have IV access, BG less than 70 mg/dL and meet dose criteria below: Dose if conscious and alert (or disorientated) and NPO = 25 mL Dose if unconscious / not alert = 50 mL Give first dose for initial blood glucose less than 70 mg/dL. If blood glucose at 15 minute recheck is less than or equal to 80 mg/dL continue to administer carbohydrate treatment every 15 minutes, as needed, based on blood glucose and assessment parameters until blood glucose level is above 80 mg/dL x 2 consecutive 15 minute checks., Or glucagon injection 1 mgJump to med 1 mg, Subcutaneous, EVERY 15 MIN PRN, low blood sugar, May repeat x 1 only, Starting on Mon02/20/24 at 0644, May give SQ or IM. ONLY use glucagon IF patient has NO IV access AND is UNABLE to swallow AND blood glucose is LESS than or EQUAL to 50 mg/dL., Group 4: ketorolac (TORADOL) injection 30 mg (COMPLETED)Jump to med 30 mg, Intravenous, ONCE PRN, moderate pain, Starting on Mon02/19/24 at 0519, For 1 dose, Give immediately x 1 dose. Any patient with renal function concerns should have a serum creatinine drawn and creatinine clearance calculated. If creatinine clearance is 30-50 ml/min give 15 mg, if less than 30 ml/min do not administer ketorolac. Can cause pain on injection. If ordered intravenously (IV) : administer through a running maintenance fluid over 1 minute followed by a flush. If patient complains of pain on injection, may dilute 15-30 mg in 5 mL and push over 1 to 2 minutes., Or ketorolac (TORADOL) injection 30 mg (COMPLETED) 30 mg, Intramuscular, ONCE PRN, moderate pain, Starting on Mon02/19/24 at 0519, For 1 dose, Give 30-60 minutes post procedure x 1 dose. Any patient with renal function concerns should have a serum creatinine drawn and creatinine clearance calculated. If creatinine clearance is 30-50 ml/min give 15 mg, if less than 30 ml/min do not administer ketorolac. Can cause pain on injection. If ordered intravenously (IV) : administer through a running maintenance fluid over 1 minute followed by a flush. If patient complains of pain on injection, may dilute 15-30 mg in 5 mL and push over 1 to 2 minutes., Or ibuprofen (ADVIL/MOTRIN) tablet 800 mg (COMPLETED) 800 mg, Oral, ONCE PRN, other, for mild to moderate pain, Starting on Mon02/19/24 at 0519, For 1 dose, Give 30-60 minutes post procedure x 1 dose. Do not give within 6 hours of ketorolac dose. Give with food., Group 5: lactated ringers BOLUS 1,000 mL (COMPLETED) Intravenous, 1,000 mL, ONCE PRN, IF patient to have epidural or intrathecal narcotics and NOT pre-eclamptic, Starting on Mon02/19/24 at 0519, For 1 dose, IV bolus must be initiated 15-30 min prior to epidural or intrathecal, then IV fluids per labor orders. Nurse may discontinue this order if duplicate., Intrapartum Or lactated ringers BOLUS 500 mL (COMPLETED)Jump to med Intravenous, 500 mL, ONCE PRN, IF patient to have epidural or intrathecal narcotics AND patient is pre-eclamptic. , Starting on Mon02/19/24 at 0519, For 1 dose, IV bolus must be initiated 15-30 min prior to epidural or intrathecal IF pre-eclamptic, then IV fluids per labor orders. Nurse may discontinue this order if duplicate., Intrapartum Group 6: misoprostol (CYTOTEC) tablet 400 mcgJump to med 400 mcg, Oral, GIVE ONCE PRN AND REPEAT ACCORDING TO INSTRUCTIONS, post- hemorrhage, Starting on Mon02/20/24 at 0644, Administer only if directed by provider. Max administrations: 4 doses, Or misoprostol (CYTOTEC) tablet 800 mcgJump to med 800 mcg, Rectal, GIVE ONCE PRN AND REPEAT ACCORDING TO INSTRUCTIONS, post- hemorrhage, Starting on Mon02/20/24 at 0644, Give rectally if unable to take oral without complications. Administer only if directed by provider. Max administrations: 4 doses., Group 7: naloxone (NARCAN) injection 0.2 mgJump to med 0.2 mg, Intravenous, EVERY 2 MIN PRN, opioid reversal, Starting on Mon02/20/24 at 2255, Administer intravenous route when available and notify provider when administered. For unintended sedation or respiratory depression if all of the below criteria are met: ~ respiratory rate LESS than or EQUAL to 8. ~SaO2 less than 92% and or/end-tidal CO2 is greater than 50. ~ the patient is receiving an opioid, has unintended sedations assessed as RASS (-3), and is currently not on mechanical ventilation. RASS scale moderate (-3) is movement or eye opening to voice but no eye contact. Patient Monitoring Once the patient has demonstrated a response to the naloxone, continue to monitor respiratory rate, depth, oxygen saturation and end-tidal CO2 (if available) every 15 minutes x 2, then every 30 minutes x 2, then every 1 hour x 1 after each naloxone dose. Consider transfer to ICU if patient respiratory parameters have not improved after 4 naloxone doses. Or naloxone (NARCAN) injection 0.4 mgJump to med 0.4 mg, Intravenous, EVERY 2 MIN PRN, opioid reversal, Starting on Mon02/20/24 at 2255, Administer intravenous route when available and notify provider when administered. For unintended sedation or respiratory depression if all of the below criteria are met: ~ respiratory rate LESS than or EQUAL to 8. ~ SaO2 less than 92% and or/end-tidal CO2 is greater than 50. ~ the patient is receiving an opioid, has unintended sedation assessed as RASS (-4) or (-5) and patient is currently not on mechanical ventilation. RASS scale (-4) is deep sedation with no response to voice but movement or eye opening to physical stimulation. RASS scale (-5) is unarousable. Patient Monitoring Once the patient has demonstrated a response to the naloxone, continue to monitor respiratory rate, depth, oxygen saturation and end-tidal CO2 (if available) every 15 minutes x 2, then every 30 minutes x 2, then every 1 hour x 1 after each naloxone dose. Consider transfer to ICU if patient respiratory parameters have not improved after 4 naloxone doses. Or naloxone (NARCAN) injection 0.2 mgJump to med 0.2 mg, Intramuscular, EVERY 2 MIN PRN, opioid reversal, Starting on Mon02/20/24 at 2255, Administer intramuscular if an intravenous route is not available and notify provider when administered. For unintended sedation or respiratory depression if all of the below criteria are met: ~ respiratory rate LESS than or EQUAL to 8. ~SaO2 less than 92% and or/end-tidal CO2 is greater than 50. ~ the patient is receiving an opioid, has unintended sedations assessed as RASS (-3), and is currently not on mechanical ventilation. RASS scale moderate (-3) is movement or eye opening to voice but no eye contact. Patient Monitoring Once the patient has demonstrated a response to the naloxone, continue to monitor respiratory rate, depth, oxygen saturation and end-tidal CO2 (if available) every 15 minutes x 2, then every 30 minutes x 2, then every 1 hour x 1 after each naloxone dose. Consider transfer to ICU if patient respiratory parameters have not improved after 4 naloxone doses. Or naloxone (NARCAN) injection 0.4 mgJump to med 0.4 mg, Intramuscular, EVERY 2 MIN PRN, opioid reversal, Starting on Mon02/20/24 at 2255, Administer intramuscular if an intravenous route is not available and notify provider when administered. For unintended sedation or respiratory depression if all of the below criteria are met: ~ respiratory rate LESS than or EQUAL to 8. ~ SaO2 less than 92% and or/end-tidal CO2 is greater than 50. ~ the patient is receiving an opioid, has unintended sedation assessed as RASS (-4) or (-5) and patient is currently not on mechanical ventilation. RASS scale (-4) is deep sedation with no response to voice but movement or eye opening to physical stimulation. RASS scale (-5) is unarousable. Patient Monitoring Once the patient has demonstrated a response to the naloxone, continue to monitor respiratory rate, depth, oxygen saturation and end-tidal CO2 (if available) every 15 minutes x 2, then every 30 minutes x 2, then every 1 hour x 1 after each naloxone dose. Consider transfer to ICU if patient respiratory parameters have not improved after 4 naloxone doses. 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
--- OUTSIDE RECORDS SUMMARY | 2024-02-24 19:58 | XMS_ITS ---
Author Organization 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 Procedure Estimated Blood Loss Check Surgery Details section. Procedure Findings Check Surgery Details section. Procedure Specimens Taken Check Surgery Details section.
--- OUTSIDE RECORDS SUMMARY | 2024-02-24 19:58 | XMS_ITS | Encounter Summary ---
Author Organization [place] Address [facility] [facility] 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
== END 2024-02-19 03:27 | disposition home or self-care (01) ==
LOC: AMB 02-24 19:55
PROVIDERS: Visit Provider Family Medicine
DX: O60.03 Preterm labor without delivery, third trimester (principal); Z3A.33 33 weeks gestation of pregnancy
CPT/HCPCS: A0425; A0427

== ENCOUNTER 2024-04-03 08:56 | Outpatient (CLI) | payer OTHER, SELFPAY ==
[2024-04-05 01:59] LABS: HPV Source Cervix; HPV, High Risk by TMA Not Detected
== END 2024-04-03 08:57 | disposition home or self-care (01) ==
PROVIDERS: Visit Provider Registered Nurse
DX: Z12.4 Encounter for screening for malignant neoplasm of cervix (principal); O24.419 Gestational diabetes mellitus in pregnancy, unspecified control
CPT/HCPCS: 82947; 82950; 87624; 87625; 88141; 88142